=== PATIENT | female | born 1940 | race Caucasian/White ===

== ENCOUNTER 2017-05-05 11:50 | Inpatient (IN) | payer MEDICARE, OTHER, SELFPAY ==
[2017-05-05] VITALS (17 sets, daily range): BP systolic 98–146; BP diastolic 49–63; PULSE 59–104; RESP 14–18; TEMP 36.3–37.1; O2SAT 92–99; BMI 23.0
--- NOTE | 2017-05-05 | COL_PTH ---
PATIENT: WALLACE COWAN LOC: MS3 U#:[id number] AGE/SX: 76/F ROOM: MS308 RE05/05/[address]: Dr. Anshul Liang MD : 1940 BED: 1 DIS: 05/09/2017 SPEC #: [id number] RECD: 05/05/17 15:17 STATUS: SERGIO VY #: [id number] LINCOLN: 05/05/17 00:[address]: Anshul Liang DEPT: SURGICAL PATHOLOGY RECD BY: Bethany Copeland ENTERED: 05/06/17 07:46 SP TYPE: COLON OTHR DR: Dr. Elvia Escalante MD Tissues: Colon, NOS Procedures: Surgery Specimen Level HEADER OPERATION: Right hemicolectomy PRE-OP DIAGNOSIS: Cancer in cecum TISSUE SUBMITTED: Right colon MICROSCOPIC DIAGNOSIS Right colon, segmental colectomy: Invasive adenocarcinoma. See cancer check list below. AM:harriet 1/25/18 COMMENT COLON CANCER SUMMARY: Specimen ? right colon Procedure ? right hemicolectomy Tumor site - cecum Tumor size ? 6 x 5.5 x 1 cm Macroscopic tumor perforation ? not present Histologic type - adenocarcinoma Histologic grade ? low grade (moderately differentiated) Microscopic tumor extension ? tumor invades the subserosal adipose tissue. Margins: Proximal margin ? uninvolved by invasive carcinoma. Distal margin - uninvolved by invasive carcinoma. Circumferential margin - uninvolved by invasive carcinoma. Treatment effect - unknown Lymph-Vascular invasion ? not identified Perineural invasion - not identified Tumor deposits - not identified Lymph nodes: Number of lymph nodes examined - 27 Number of lymph nodes involved by carcinoma - 0 Distant metastasis - unknown Ancillary studies: See microsatellite instability study by IHC ([id number]) for complete details. Negative (no loss of mismatch protein; no microsatellite instability detected). Immunohistochemistry Studies for Mismatch Repair Proteins: MLH1 ? present. No loss MSH2 ? present. No loss MSH6 - present. No loss PMS2 - present. No loss Mutational Analysis: BRAF ? not performed KRAS - not performed PATHOLOGIC STAGE: pT3 N0 Mx The above summary is in compliance with [employer] [place] [employer] (CAP) Cancer Protocols Checklist and [place] Joint Committee on Cancer (AJCC), Staging Manual, 8th Ed. MICROSCOPIC DESCRIPTION Slides are reviewed. GROSS DESCRIPTION Received fresh for OR consultation labeled with the patient's name is a specimen designated right colon. The specimen consists of a 10 cm segment of large bowel and attached 19 cm segment of small bowel. An appendix is not present. Located within the cecum at a distance of 6.5 cm from the closest (distal) margin of resection is a fungating cote ulcerated mass measuring 6 x 5.5 x 1 cm. The size and proximity of the lesion to the closest margin is conveyed to the surgeon intraoperatively. The serosa in the area of the mass is inked in black ink. Also present in the specimen container are two irregular fragments of bowel. One fragment measures 4 x 2 x 1.7 cm. The other fragment measures 5 x 2 x 1.5 cm. Serial sections through the mass reveal no extension of tumor to inked serosal surface. The ileocecal valve is grossly unremarkable. The attached fibrofatty tissue contains a number of grossly unremarkable lymph nodes. No other mucosal mass lesions are identified. Gas Stove Servicer Helper sections are submitted as follows: 1 ? proximal and distal mucosal margins, 2 ? ileocecal valve, 3 - sales representative printing sections of bowel fragments free in container (one inked in black), 4-7 ? tumor with serosal surface inked, 812 ? multiple lymph nodes in each cassette. / AM:harriet 05/06/17 TC:0 CPT: 01400
--- NOTE | 2017-05-05 | IMM_PTH ---
PATIENT: WALLACE COWAN LOC: MS3 U#:[id number] AGE/SX: 76/F ROOM: MS308 RE05/05/[address]: Dr. Anshul Liang MD : 1940 BED: 1 DIS: 05/09/2017 SPEC #: [id number] RECD: 05/07/17 13:51 STATUS: SERGIO REQ #: [id number] LINCOLN: 05/05/17 00:[address]: Anshul Liang DEPT: IMMUNOHISTOCHEMISTRY RECD BY: Bethany Copeland ENTERED: 05/07/17 13:54 SP TYPE: IMMUNO OTHR DR: MD Dr. Timmy Katz DO Tissues: Right colon Procedures: MLH-1 (add) MSH6 (add) Anti-PMS2 (add) WARD-2 (add) HER2 TERRI (add) KI-67 (add) P53 (add) MSH2 (initial) CDX2 (add) PHYSICIAN & [address] [address] SPECIMEN INFORMATION: Tissue Source: Right colon Clinical Info: Cecum cancer Specimen Number: [id number] #6 CPT code: 88412, 21379 x8 METHODOLOGY: Deparaffinized sections of prefer/formalin-fixed tissue or PAP/DQ stained slides are incubated with monoclonal/polyclonal antibodies/oligonucleotide probes. Localization is made via biotin free immunoperoxidase method. Appropriate controls are performed and reacted as expected. Results on target cell population are indicated in the following table: RESULTS: ANTIBODY / CLONE RESULT Block 6 COLON CANCER PROFILE (Prognostic Markers) Ki-67 (30-9) positive P53 (DO-7) positive MSH2 (25D12) positive MSH6 (44) positive MLH-1 (M1) positive PMS2 ([id number]) positive WARD-2 (SP21) positive Her-2neu (CB11) positive CDX2 ([id number]) positive These tests were developed and their performance characteristics determined by [facility]. They may not have been cleared or approved by the U.S. Food and Drug Administration. The FDA has determined that such clearance or approval is not necessary. INTERPRETATION: Right colon, hemicolectomy: Invasive adenocarcinoma. Result of Microsatellite Instability Study: Negative (no loss of mismatch protein; no microsatellite instability detected). AM:harriet 05/08/17
--- NOTE | 2017-05-05 12:01 | EKG12_ITS ---
Test Reason : PRE OP Blood Pressure : / mmHG Vent. Rate : 053 BPM Atrial Rate : 053 BPM P-R Int : 124 ms QRS Dur : 066 ms QT Int : 430 ms P-R-T Axes : 044 -17 025 degrees QTc Int : 403 ms Sinus bradycardia Otherwise normal ECG When compared with ECG of 20-JUN-2008 07:54, MANUAL COMPARISON REQUIRED, DATA IS UNCONFIRMED Confirmed by SARIKA LAMAR ([id number]), assistant film editor AUBREY ZAMBRANO ([id number]) on 05/07/2017 1:33:33 PM Referred By: Sarika Liang Confirmed By:SARIKA LAMAR
[2017-05-05 12:56] LABS: AST(SGOT) 18 U/L (15-37); Alanine Aminotransfer ALT/SGPT 23 U/L (12-78); Albumin, Serum 3.3 g/dL (3.4-5.0); Alkaline Phosphatase 125 U/L (45-117); Bilirubin, Direct 0.11 mg/dL (0.00-0.30); Globulin 3.3 g/dL (2.2-4.2); Protein, Total 6.6 g/dL (6.4-8.2); Thyroid Stim Hormone (TSH) 0.73 uIU/mL (0.358-3.74)
[2017-05-05] MEDS: Bupivacaine Mpf 0.5% 30 ML VIAL (13:00)
--- NOTE | 2017-05-05 13:47 | OP.PCM_ITS ---
Problem List (1) Malignant neoplasm of ascending colon Status: Acute Report of Operation Date of Procedure: 05/05/17 Pre-Operative Diagnosis: c18.2 cancer of the ascending colon Post-Operative Diagnosis: same Surgery/Procedure Performed:: 07273 colectomy with ileocolostomy Type of Anesthesia:: General Anesthesiologist: Blanco Lopez Specimen's removed: right colon Estimated Blood Loss (mL): < 150 cc Fluids Replaced: 2 L Description of Procedure: Patient was brought in the operating room placed in the supine position. Under excellent general endotracheal intubation a Hemphill catheter was placed the abdomen was sterilely prepped and draped in usual fashion. Local was injected above the umbilicus a small incision was made varies needle was placed inside the abdomen and the abdomen was insufflated 15 torr. Visiport was used to gain access to the intra-abdominal cavity without injury to underlying structures. Superior to this I placed another #5 trocar. The right colon at the proximal ascending area was adherent to the anterior abdominal wall. I took this down with the Enseal to ensure that I took part of the anterior abdominal wall. I did get into the musculature here. Once I had this freed I started to dissect the small intestine. I took down some adhesions from the anterior abdominal wall from the omentum. I started to dissect sharply into the pelvis laparoscopically it was very apparent to me that this was not going to be done laparoscopically. I proceeded then to make a midline incision in the lower abdomen around the umbilicus to the right side placed a wound protector into the wound and then proceeded to dissect the small intestine out of the pelvis. This was done with sharp dissection with Metzenbaum scissors. It took quite a bit of time to get all the small intestine out of the pelvis. But I was able to do this without any serosal injuries or enterotomies. I proceeded to take the rest of the omentum off of the pelvis as well I inspected making sure that I did not injure the sigmoid colon from where this omentum had been densely adherent. Once I had all the small intestines up out of the pelvis I then proceeded to take all the adhesions from the small intestines down with Metzenbaum dissection. Once again no serosal injuries or enterotomies were performed. Once I had delineated this I proceeded to mobilize the rest of the descending colon and hepatic flexure with the Enseal. I transected the colon at the proximal transverse colon with a 75 linear cutter. Making sure that I stated to the right side of the middle colic artery. I then went to the terminal ileum and transected this with another 75 linear cutter. I came down on the right colic artery and ligated this in between Katy clamps. I then sent the specimen to pathology for gross dissection. I had good proximal and distal margins with positive serosal involvement. I inspected the liver I could palpate no abnormalities within the liver and when I had the scope and I did not see any abnormalities in the liver. I was able to get my hand back posteriorly where I was unable to see this with the scope. I placed 2 bowel clamps on the colon and the small intestine enterotomies were performed a side- to-side functional and end-to-end anastomosis was performed with a 75 linear cutter. I placed a 60 stapler across the enterotomy. I had a misfire of my stapler here and had to reapply the stapler. Once I had it fired appropriately I placed a 3-0 GI silk in the crotch stitch in Place Betadine at the end anastomosis. I had good hemostasis. The mesenteric rent was closed with a 2-0 Vicryl. Both my small intestine and colon had good blood supply to it the connection was large enough to get my thumb through it easily I placed the right colon in the right upper quadrant. I ran the small bowel and inspected it once again no injuries were identified. I irrigated out the pelvis with a liter of warm irrigation I got an accurate needle and sponge count I placed the omentum back in the pelvis the fascia was then closed with #1 PDS. Local was injected into the intramuscular area. Subcu was brought together with a 2-0 Vicryl. Deep dermals of 3-0 Vicryl then a running 4-0 Monocryl on the skin Steri-Strips are applied sterile dressings were applied and the patient had tolerated the procedure well. - Admit VTE Documentation VTE Present on Admission: No VTE Mechan Device Prophylaxis: SCD's VTE Pharm Prophylaxis ordered?: No Reason prophylaxis not ordered:: Treatment Not Indicated
[2017-05-05] MEDS: HYDROmorphone PCA 0.2 MG/ML 100 ML BAG 20 MG IV (17:09)
[2017-05-05] MEDS: Senna/Docusate Sodium 1 Tablet 2 TABLET PO (20:38)
[2017-05-05] MEDS: Lactated Ringers 1,000 ML 75 ML IV (20:38)
[2017-05-05] MEDS: Metoprolol Tartrate 25 MG Tablet PO (20:38)
[2017-05-06] VITALS (17 sets, daily range): BP systolic 110–136; BP diastolic 53–69; PULSE 74–93; RESP 16–18; TEMP 36.3–37.2; O2SAT 93–97
[2017-05-06] MEDS: 0.9% Normal Saline 1,000 ML 999 ML IV (00:10)
--- NOTE | 2017-05-06 00:37 | NURSING ---
Wasted 10ml of dilaudid from PUBLISHING SPECIALIST pump d/t air in the line. Verified by Fatemeh Johnson, charge nurse. The dilaudid was drained into a cup and disposed into the sink.
[2017-05-06] MEDS: LORazepam 1 MG Tablet PO ×4 (02:20→21:27)
[2017-05-06] MEDS: Levothyroxine 50 MCG Tablet PO (06:10)
--- NOTE | 2017-05-06 07:15 | PCM.PN.SRG ---
Patient Problems: Active and Suspected Problems (Last Reviewed 04/30/17 @ 10:59 by Reyna Larios) Malignant neoplasm of ascending colon (Acute) Subjective: Patient evaluated resting in bed. She is tearful this morning. She notes forgetting to push the pain pump medication to assist with pain. Patient notes abdominal pain with movement and back pain with laying in bed. She denies nausea, vomiting. Urine output is decreased. 1 liter of normal saline was given over night. She is tolerating sips and chips. Negative flatus, BM. Negative fever. - Physical Exam General: Alert, Oriented x3, Cooperative Lungs: Clear to auscultation, Normal air movement Cardiovascular: Regular rate, No murmurs Abdomen: Hypoactive Bowel Sounds, Distended, Tender - generalized, - - Incision- c/d/i. No erythema or infection noted Vital Signs Temp Pulse Resp BP Pulse Ox 97.4 F L 81 18 110/57 L 97 05/06/17 05:15 05/06/17 05:15 05/06/17 05:15 05/06/17 05:15 05/06/17 05:15 Oxygen Flow Rate 4 Oxygen Delivery Method Nasal Cannula Weight: 125 lb 14.143 oz Body Mass Index (BMI) 23.0 Intake and Output for Last 24 Hours 05/04/17 05/05/17 05/06/17 23:59 23:59 23:59 Intake Total 3124 / 3124 1794 / 1794 Output Total 350 / 350 200 / 200 Balance 2774 / 2774 1594 / 1594 Laboratory Tests Past 24 Hrs 05/05/17 05/06/17 05/06/17 12:20 06:48 06:48 WBC Pending RBC Pending Hgb Pending Hct Pending MCV Pending MCH Pending MCHC Pending RDW Pending RDW Differential Pending Plt Count Pending Sodium Pending Potassium Pending Chloride Pending Carbon Dioxide Pending Anion Gap Pending BUN Pending Creatinine Pending Est GFR (MDRD) Af Amer Pending Est GFR (MDRD) Non-Af Pending BUN/Creatinine Ratio Pending Glucose Pending Calcium Pending Total Bilirubin 0.30 Direct Bilirubin 0.11 AST 18 ALT 23 Alkaline Phosphatase 125 H Total Protein 6.6 Albumin 3.3 L Globulin 3.3 TSH 0.73 Assessment/Plan Active and Suspected Problems (Last Reviewed 04/30/17 @ 10:59 by Reyna Larios) Malignant neoplasm of ascending colon (Acute) I am following this patient in conjunction with Dr. Liang S/p right hemicolectomy - Possible d/c maribel later today - K-pad - encourage ambulation and I.S. - Pain control. Switch MINISTER ASSISTANT pump for scheduled PRN pain medication IV - Continue sips and chips - Additional 1 liter bolus of Normal saline given this morning - We will continue to monitor this patient - Labs pending
--- NOTE | 2017-05-06 07:22 | PN.SURG_ITS ---
Patient Problems: Active and Suspected Problems (Last Reviewed 04/30/17 @ 10:59 by Reyna Larios) Malignant neoplasm of ascending colon (Acute) Subjective: Patient evaluated resting in bed. She is tearful this morning. She notes forgetting to push the pain pump medication to assist with pain. Patient notes abdominal pain with movement and back pain with laying in bed. She denies nausea , vomiting. Urine output is decreased. 1 liter of normal saline was given over night. She is tolerating sips and chips. Negative flatus, BM. Negative fever. - Physical Exam General: Alert, Oriented x3, Cooperative Lungs: Clear to auscultation, Normal air movement Cardiovascular: Regular rate, No murmurs Abdomen: Hypoactive Bowel Sounds, Distended, Tender - generalized, - - Incision - c/d/i. No erythema or infection noted Vital Signs Temp Pulse Resp BP Pulse Ox 97.4 F L 81 18 110/57 L 97 05/06/17 05:15 05/06/17 05:15 05/06/17 05:15 05/06/17 05:15 05/06/17 05:15 Oxygen Flow Rate 4 Oxygen Delivery Method Nasal Cannula Weight: 125 lb 14.143 oz Body Mass Index (BMI) 23.0 Intake and Output for Last 24 Hours 05/04/17 05/05/17 05/06/17 23:59 23:59 23:59 Intake Total 3124 / 3124 1794 / 1794 Output Total 350 / 350 200 / 200 Balance 2774 / 2774 1594 / 1594 Laboratory Tests Past 24 Hrs 05/05/17 05/06/17 05/06/17 12:20 06:48 06:48 WBC Pending RBC Pending Hgb Pending Hct Pending MCV Pending MCH Pending MCHC Pending RDW Pending RDW Differential Pending Plt Count Pending Sodium Pending Potassium Pending Chloride Pending Carbon Dioxide Pending Anion Gap Pending BUN Pending Creatinine Pending Est GFR (MDRD) Af Amer Pending Est GFR (MDRD) Non-Af Pending BUN/Creatinine Ratio Pending Glucose Pending Calcium Pending Total Bilirubin 0.30 Direct Bilirubin 0.11 AST 18 ALT 23 Alkaline Phosphatase 125 H Total Protein 6.6 Albumin 3.3 L Globulin 3.3 TSH 0.73 Assessment/Plan Active and Suspected Problems (Last Reviewed 04/30/17 @ 10:59 by Reyna Larios) Malignant neoplasm of ascending colon (Acute) I am following this patient in conjunction with Dr. Liang S/p right hemicolectomy - Possible d/c maribel later today - K-pad - encourage ambulation and I.S. - Pain control. Switch EPIC DIRECTOR pump for scheduled PRN pain medication IV - Continue sips and chips - Additional 1 liter bolus of Normal saline given this morning - We will continue to monitor this patient - Labs pending
[2017-05-06 07:37] LABS: Anion Gap 7 (5-15); BUN 7 mg/dL (7-18); BUN/Creat Ratio 7.2 RATIO (10-20); Calcium,Total 7.4 mg/dL (8.5-10.1); Chloride 106 mmol/L (98-107); Creatinine, Serum 0.98 mg/dL (0.55-1.02); EST Glomerular Filtration Rate 59 mL/min (>60); Est Glom Filt Rate - Afr Amer 71 mL/min (>60); Estimated Creatinine Clearance 38.02 ml/min; Glucose 120 mg/dL (70-110); Potassium 4.2 mmol/L (3.5-5.1); Sodium Level 139 mmol/L (136-145)
[2017-05-06] MEDS: 0.9% Normal Saline 1,000 ML 500 ML IV (07:39)
[2017-05-06] MEDS: HYDROmorphone 1 MG/ML Syringe IV ×4 (07:54→20:35)
[2017-05-06] MEDS: 0.9% NaCl Peripheral Flush Adult/Peds IV ×3 (08:03→15:36)
[2017-05-06 08:10] LABS: Hematocrit 30.8 % (37-47); Hemoglobin 9.4 g/dl (12.0-15.0); Mean Corp Hgb Conc 30.5 g/gl (32-36); Mean Corpuscular Hgb 28.1 pg (27.0-32.0); Mean Corpuscular Volume 91.9 fL (81-99); Mean Platelet Vol. 10.6 fl (6.2-12.0); Platelet Count 487 K/mm3 (150-450); RBC Distribution Width CV 16.3 % (11.6-14.6); RBC Distribution Width SD 50.1 fl (35.1-43.9); Red Blood Count 3.35 M/mm3 (4.2-5.4); White Blood Count 12.6 K/mm3 (4.4-11.0)
[2017-05-06 08:19] LABS: Scan Indicated on CBC? Y/N NO
--- NOTE | 2017-05-06 10:29 | CASEMGMT ---
PRETTY COOPER Face to Face with patient for initial transition planning/care coordination assessment. RN CM introduced self and role at [facility]. Patient lying in bed, alert and oriented. Patient willing to participate in assessment and is able to answer all questions appropriately. Care providers, pharmacy, and demographics verified. See link attached. Patient wishes to discharge home, denies need for home health at this time. Patient states she has no further needs or concerns at this time. CM to follow for discharge planning needs that may arise. Dispostion Plan: Patient to discharge home with family support and follow-up plans. RN CM to follow up with family regarding discharge needs.
[2017-05-06] MEDS: Lactated Ringers 1,000 ML 75 ML IV ×2 (10:50→23:36)
[2017-05-06] MEDS: Metoprolol Tartrate 25 MG Tablet PO ×2 (10:51→21:26)
[2017-05-06] MEDS: Zolpidem Tartrate 5 MG Tablet PO (21:26)
[2017-05-07] VITALS (12 sets, daily range): BP systolic 100–134; BP diastolic 47–57; PULSE 61–92; RESP 16–20; TEMP 36.5–37.1; O2SAT 92–100
[2017-05-07] MEDS: HYDROmorphone 1 MG/ML Syringe IV ×2 (01:22→05:48)
[2017-05-07] MEDS: LORazepam 1 MG Tablet PO ×3 (05:42→21:36)
[2017-05-07] MEDS: Levothyroxine 50 MCG Tablet PO (05:42)
--- NOTE | 2017-05-07 06:40 | PCM.PN.SRG ---
Patient Problems: Active and Suspected Problems (Last Reviewed 04/30/17 @ 10:59 by Reyna Larios) Malignant neoplasm of ascending colon (Acute) Subjective: Patient was evaluated resting comfortably in bed. Patient seems much more comfortable with pain. She denies nausea, vomiting, fever. Patient seems to be urinating well. Positive flatus. Negative BM. Patient notes feeling more congested this morning. She was not able to ambulate much due to multiple visitors yesterday. - Physical Exam General: Alert, Oriented x3, Cooperative HEENT: - - Left eye watery and slightly red Lungs: Wheezes - bilaterally Cardiovascular: Regular rate, No murmurs Abdomen: Hypoactive Bowel Sounds - slightly more than yesterday, Distended - slightly, Tender - minimal, - - Incision c/d/i. Small amount of ecchymosis noted. No erythema or infection noted Vital Signs Temp Pulse Resp BP Pulse Ox 98.8 F 90 18 134/47 H 93 05/07/17 02:00 05/07/17 02:00 05/07/17 02:00 05/07/17 02:00 05/07/17 02:00 Oxygen Flow Rate 2 Oxygen Delivery Method Nasal Cannula Weight: 125 lb 14.143 oz Body Mass Index (BMI) 23.0 Intake and Output for Last 24 Hours 05/05/17 05/06/17 05/07/17 23:59 23:59 23:59 Intake Total 3124 / 3124 3744 / 3744 1664 / 1664 Output Total 350 / 350 750 / 750 3600 / 3600 Balance 2774 / 2774 2994 / 2994 -1936 / -1936 Laboratory Tests Past 24 Hrs 05/06/17 05/06/17 06:48 06:48 WBC 12.6 H RBC 3.35 L Hgb 9.4 L Hct 30.8 L MCV 91.9 MCH 28.1 MCHC 30.5 L RDW 16.3 H RDW Differential 50.1 H Plt Count 487 H MPV 10.6 Sodium 139 Potassium 4.2 Chloride 106 Carbon Dioxide 26.0 Anion Gap 7 BUN 7 Creatinine 0.98 Estim Creat Clear Calc 38.02 Est GFR (MDRD) Af Amer 71 Est GFR (MDRD) Non-Af 59 L BUN/Creatinine Ratio 7.2 L Glucose 120 H Calcium 7.4 L Assessment/Plan Active and Suspected Problems (Last Reviewed 04/30/17 @ 10:59 by Reyna Larios) Malignant neoplasm of ascending colon (Acute) I am following this patient in conjunction with Dr. Liang S/p right hemicolectomy - Ambulate in the hallway today x 3 - Consult medicine per Dr. Liang - Order Duoneb treatments - PEP therapy - Avoid Dilaudid and switch to oral pain medications - Patient up in chair x 2 - We will continue to monitor this patient - Labs pending
--- NOTE | 2017-05-07 07:16 | RAD_ITS ---
STUDY: X-RAY CHEST REASON FOR EXAM: Female, 76 years old. Shortness of breath. Confusion. TECHNIQUE: Single AP portable view of the chest. COMPARISON: Comparison is made with prior study dated August 28, 2015. FINDINGS: Elevation of the right hemidiaphragm. There is evidence of vascular congestion and mild CHF. Bibasilar patchy infiltrates and/or atelectasis worse on the right side. Blunting of both costophrenic angles. Normal size heart. Normal mediastinum and sherice. Normal visualized pulmonary arteries. There is atherosclerotic tortuosity of the aortic arch and descending thoracic aorta. Normal visualized thoracic spine. Normal visualized ribs, clavicles, and shoulders. There is no demonstrated abnormality of the visualized soft tissue structures of the upper abdomen. RAD/Chest 1 View (Portable) IMPRESSION: CHF. Superimposed bibasilar atelectasis and/or infiltrates worse on the right side with blunting of both costophrenic angles. Electronically Signed: Juan Carlos Crump MD at 8:13 EST Tel [phone], Service support ,
[2017-05-07 07:27] LABS: Absolute Lymphocyte Count 0.92 X10^3/ul (0.83-4.51); Absolute Neutrophil Count 11.7 X10^3/uL (2.0-7.7); Basophil# 0.05 X10^3/uL; Basophil% 0.4 % (0-1); Eosinophil# 0.13 X10^3/uL; Eosinophils% 0.9 % (0-5); Hematocrit 28.4 % (37-47); Hemoglobin 8.7 g/dl (12.0-15.0); Lymphocyte # 0.92 X10^3/ul (4.0); Lymphocyte % 6.5 % (19-41); Mean Corp Hgb Conc 30.6 g/gl (32-36); Mean Corpuscular Hgb 28.1 pg (27.0-32.0); Mean Corpuscular Volume 91.6 fL (81-99); Mean Platelet Vol. 9.9 fl (6.2-12.0); Monocyte# 1.28 X10^3/uL; Monocyte% 9.1 % (0-10); Neutrophil # 11.68 X10^3/uL (2.7-7.7); Platelet Count 398 K/mm3 (150-450); RBC Distribution Width CV 16.2 % (11.6-14.6); RBC Distribution Width SD 50.7 fl (35.1-43.9); White Blood Count 14.1 K/mm3 (4.4-11.0)
[2017-05-07 07:52] LABS: Anion Gap 8 (5-15); BUN 5 mg/dL (7-18); BUN/Creat Ratio 8.2 RATIO (10-20); Calcium,Total 7.6 mg/dL (8.5-10.1); Chloride 103 mmol/L (98-107); Creatinine, Serum 0.61 mg/dL (0.55-1.02); EST Glomerular Filtration Rate 101 mL/min (>60); Est Glom Filt Rate - Afr Amer 122 mL/min (>60); Estimated Creatinine Clearance 37.26 ml/min; Glucose 106 mg/dL (70-110); Sodium Level 137 mmol/L (136-145)
[2017-05-07 07:54] LABS: POSITIVE COUNT NO; POSITIVE DIFFERENTIAL NO; POSITIVE MORPHOLOGY NO
[2017-05-07] MEDS: Ipratropium/Albuterol Sulfate 3 ML AMPUL.NEB INHALATION ×4 (08:26→19:31)
[2017-05-07] MEDS: oxyCODONE 5 MG Tablet PO ×2 (09:04→19:46)
[2017-05-07] MEDS: Metoprolol Tartrate 25 MG Tablet PO ×2 (09:05→21:36)
[2017-05-07] MEDS: Lactated Ringers 1,000 ML 50 ML IV (10:00)
[2017-05-07 10:28] LABS: BNP,B-Type NATRIURETIC PEPTIDE 418.2 pg/mL (0-100)
[2017-05-07] MEDS: 0.9% NaCl Peripheral Flush Adult/Peds IV (13:15)
[2017-05-07] MEDS: Furosemide 40 MG/4 ML Vial IV (13:15)
[2017-05-07] MEDS: Acetaminophen 325 MG Tablet 650 MG PO (13:23)
--- NOTE | 2017-05-07 13:25 | ECHOD_ITS ---
Reason For Study: CHF Procedure This was a 2D Doppler, Color Flow transthoracic echocardiogram. The study was technically difficult. PT was scanned in the supine position. Exam performed portable in patient room. Left Ventricle Normal LV size. Left ventricular systolic function is normal. The estimated ejection fraction is 60 %. No regional wall motion abnormalities noted. Right Ventricle Normal RV size. Normal systolic function. Atria Normal left atrium. Normal right atrium. Mitral Valve Normal mitral valve. Tricuspid Valve Normal tricuspid valve. Mild (1+) tricuspid valve insufficiency. Pulmonary artery systolic pressure is 26 mmHg. Aortic Valve Trisinus/trileaflet aortic valve. Pulmonic Valve Normal pulmonic valve. Great Vessels Normal aortic root. The pulmonary artery is normal size. Normal inferior vena cava. Pericardium/Pleural No pericardial effusion. MMode/2D Measurements & Calculations LVIDd: 4.2 cm IVSd: 1.1 cm Ao root diam: 3.0 cm LVIDs: 2.7 cm LVPWd: 1.1 cm LA dimension: 3.6 cm FS: 34.5 % LAV(MOD-bp): 44.0 ml LA A4 area: 17.0 cm2 RA A4 area: 11.7 cm2 LAV(MOD-bp) Indexed: 28.1 ml/m2 LAV(MOD-sp2): 41.7 ml LAV(MOD-sp4): 45.8 ml Doppler Measurements & Calculations MV E max rene: 92.4 cm/sec Lat Peak E' Rene: 10.6 cm/sec Med Peak E' Rene: 8.3 cm/sec MV A max rene: 107.2 cm/sec E/E' lat: 8.7 E/E' med: 11.1 MV E/A: 0.86 Ao V2 max: 155.7 cm/sec LV V1 max: 142.1 cm/sec PA V2 max: 80.8 cm/sec Ao max P.4 mmHg LV V1 max P.9 mmHg TR max rene: 229.9 cm/sec TR max P.1 mmHg Interpretation Summary Normal LV size. Left ventricular systolic function is normal. The estimated ejection fraction is 60 %. Mild (1+) tricuspid valve insufficiency. Ordering Physician: Timmy Marc Referring Physician: Anshul Liang Performed By: Coral Joseph, CHINMAY, RVT
--- NOTE | 2017-05-07 16:16 | CHAPLAIN ---
Type of Pastoral Visit _x__ Initial Visit ___ Follow-up Visit ___ On-call Visit ___ General Patient Visit ___ Spiritual Assessment ___ Family Conference ___ Bereavement ___ Rapid Response ___ Code Blue ___ Other (describe below) Pastoral Care Referral From _x__ Patient ___ Family ___ Nurse ___ Physician ___ Cupola Melter ___ Solderer Electronic ___ Other (describe below) Sacrament/Intervention ___ Active listening ___ Anointing ___ Gnosticism ___ Bereavement ___ Communion ___ Kiana exploration ___ ___ Life review ___ Prayer ___ Reconciliation ___ Sacrament of Sick ___ Supportive presence ___ Wedding _x__ Other (describe below) Pastoral Comments patient and spouse requested a phone call be made to their taoist to notify internal communications intern of her admission; this was handled by this end polisher
--- NOTE | 2017-05-07 19:53 | PCM.PROGNOTE ---
Subjective: Patient seen and examined today at the request of general surgery, she had undergone a hemicolectomy but was unable to be weaned from oxygen following the procedure. Patient has no history of any lung disease, I obtained a chest x-ray which showed evidence of CHF and bilateral infiltrates which I feel are probably atelectatic areas. Patient's beta natruretic peptide was minimally elevated, I ordered an echocardiogram which did not show any impaired EF. Patient was given IV Lasix this morning which seemed to improve her breathing. I will repeat the patient's chest x-ray in the morning, at the time of my repeat examination this afternoon patient appeared comfortable and was on 2 L of oxygen. - Physical Exam General: Alert, Oriented x3, Cooperative HEENT: Atraumatic, PERRLA, EOMI, Normocephalic Oral: Moist Mucosa Neck: Supple, No JVD, Negative Carotid Bruits, Trachea Midline, Thyroid Normal Size and Texture Lungs: No rhonchi, No wheeze, No rales, Diminished - Over right lower lung Cardiovascular: Regular rate, Regular Rhythm, Normal S1, Normal S2, No murmurs, No Ectopic Activity, PMI Normal, No rub noted, No Gallop Abdomen: Bowel Sounds Present, Soft, Non Tender, No hernias noted Extremities: No clubbing, No cyanosis, No edema, Capillary Refill Less than 3 Seconds Skin: No rashes, No breakdown Musculoskeletal: No Tenderness to Palpation of Joints or Extremities Neurological: Cranial nerves II-XII grossly intact, Neuro grossly intact, Sensory exam intact to light touch and pain, Coordination normal Psych/Mental Status: Normal Affect, Appropriate, Alert and oriented to time, place, person, mood and affect Vital Signs Temp Pulse Resp BP Pulse Ox 98.1 F 84 18 131/51 H 100 05/07/17 14:32 05/07/17 15:17 05/07/17 15:17 05/07/17 14:32 05/07/17 14:32 Oxygen Flow Rate 2 Oxygen Delivery Method Nasal Cannula Weight: 57.1 kg Body Mass Index (BMI) 23.0 Intake and Output for Last 24 Hours 05/05/17 05/06/17 05/07/17 23:59 23:59 23:59 Intake Total 3124 / 3124 3744 / 3744 1963 / 1963 Output Total 350 / 350 750 / 750 4000 / 4000 Balance 2774 / 2774 2994 / 2994 -2035 / -2035 Laboratory Tests Past 24 Hrs 05/07/17 05/07/17 05/07/17 07:14 07:14 07:14 WBC 14.1 H RBC 3.10 L Hgb 8.7 L Hct 28.4 L MCV 91.6 MCH 28.1 MCHC 30.6 L RDW 16.2 H RDW Differential 50.7 H Plt Count 398 MPV 9.9 Immature Gran % (Auto) 0.100 Neut % (Auto) 83.0 H Lymph % (Auto) 6.5 L [place] % (Auto) 9.1 Eos % (Auto) 0.9 Baso % (Auto) 0.4 Absolute Neuts (auto) 11.7 H Absolute Lymphs (auto) 0.92 Total Counted Not Reportable Sodium 137 Potassium 4.0 Chloride 103 Carbon Dioxide 26.0 Anion Gap 8 BUN 5 L Creatinine 0.61 Estim Creat Clear Calc 37.26 Est GFR (MDRD) Af Amer 122 Est GFR (MDRD) Non-Af 101 BUN/Creatinine Ratio 8.2 L Glucose 106 Calcium 7.6 L B-Natriuretic Peptide 418.2 H Assessment/Plan #1 hypoxia secondary to diastolic CHF and atelectasis-chest x-ray will be repeated tomorrow, I do not think the patient needs to be on programmed Lasix, we will continue aerosol treatments #2 atelectasis-patient will continue aerosol treatments, chest x-ray will be repeated #3 hypertension #4 osteoarthritis #5 legal blindness #6 hypothyroidism #7 Invasive adenocarcinoma of the colon -postop day #2 right hemicolectomy Code Visit Inpatient E&M: 56287 Subs Hosp L2
[2017-05-07] MEDS: Zolpidem Tartrate 5 MG Tablet PO (21:36)
[2017-05-08] VITALS (12 sets, daily range): BP systolic 126–140; BP diastolic 47–64; PULSE 66–89; RESP 12–18; TEMP 36.6–36.7; O2SAT 86–96
[2017-05-08] MEDS: Ipratropium/Albuterol Sulfate 3 ML AMPUL.NEB INHALATION ×2 (00:41→19:00)
[2017-05-08] MEDS: oxyCODONE 5 MG Tablet PO ×2 (01:47→14:20)
--- NOTE | 2017-05-08 05:55 | RAD_ITS ---
STUDY: X-RAY CHEST REASON FOR EXAM: Female, 76 years old. Shortness of breath. TECHNIQUE: Single AP portable view of the chest. COMPARISON: Comparison is made with prior study dated May 07, 2017. FINDINGS: Since prior study, there has been progressive pleural parenchymal changes at the right lung base. Persistent atelectasis and/or infiltrate in the left lower lobe. Normal size heart. Normal mediastinum and sherice. Normal visualized pulmonary arteries. Normal visualized aortic arch and descending thoracic aorta. Normal visualized thoracic spine. Normal visualized ribs, clavicles, and shoulders. There is no demonstrated abnormality of the visualized soft tissue structures of the upper abdomen. RAD/Chest 1 View (Portable) IMPRESSION: Progressive pleural parenchymal changes at the right lung base. Stable infiltration and/or atelectasis in the left lower lobe. Electronically Signed: Juan Carlos Crump MD at 8:27 EST Tel [phone], Service support ,
[2017-05-08] MEDS: Acetaminophen 325 MG Tablet 650 MG PO ×2 (05:57→11:18)
[2017-05-08] MEDS: Levothyroxine 50 MCG Tablet PO (05:58)
[2017-05-08] MEDS: Lactated Ringers 1,000 ML 50 ML IV (05:58)
[2017-05-08] MEDS: LORazepam 1 MG Tablet PO ×3 (05:58→22:40)
--- NOTE | 2017-05-08 07:28 | PCM.PN.SRG ---
Patient Problems: Active and Suspected Problems (Last Reviewed 04/30/17 @ 10:59 by Reyna Larios) Malignant neoplasm of ascending colon (Acute) Subjective: Patient reports that he is doing well this morning. She tolerated clear liquid diet yesterday with no nausea vomiting. She does not feel distended. She is passing flatus. Her pain is well-controlled with medication. - Physical Exam General: Alert, Cooperative Neck: No JVD Lungs: - - Patient is coughing Cardiovascular: Regular rate, Regular Rhythm Abdomen: Soft, Non Tender, Non-Distended, - - Incision is clean dry and intact Psych/Mental Status: Normal Affect Vital Signs Temp Pulse Resp BP Pulse Ox 97.8 F 89 18 140/57 H 94 05/08/17 02:04 05/08/17 02:13 05/08/17 02:13 05/08/17 02:04 05/08/17 02:13 Oxygen Flow Rate 2 Oxygen Delivery Method Nasal Cannula Weight: 125 lb 14.143 oz Body Mass Index (BMI) 23.0 Intake and Output for Last 24 Hours 05/06/17 05/07/17 05/08/17 23:59 23:59 23:59 Intake Total 3744 / 3744 1964 / 1963 968 / 968 Output Total 750 / 750 4000 / 4000 1850 / 1850 Balance 2994 / 2994 -2036 / -2036 -882 / -882 Laboratory Tests Past 24 Hrs 05/07/17 05/07/17 05/07/17 07:14 07:14 07:14 WBC 14.1 H RBC 3.10 L Hgb 8.7 L Hct 28.4 L MCV 91.6 MCH 28.1 MCHC 30.6 L RDW 16.2 H RDW Differential 50.7 H Plt Count 398 MPV 9.9 Immature Gran % (Auto) 0.100 Neut % (Auto) 83.0 H Lymph % (Auto) 6.5 L [place] % (Auto) 9.1 Eos % (Auto) 0.9 Baso % (Auto) 0.4 Absolute Neuts (auto) 11.7 H Absolute Lymphs (auto) 0.92 Total Counted Not Reportable Sodium 137 Potassium 4.0 Chloride 103 Carbon Dioxide 26.0 Anion Gap 8 BUN 5 L Creatinine 0.61 Estim Creat Clear Calc 37.26 Est GFR (MDRD) Af Amer 122 Est GFR (MDRD) Non-Af 101 BUN/Creatinine Ratio 8.2 L Glucose 106 Calcium 7.6 L B-Natriuretic Peptide 418.2 H Clinical Impression(s) from Imaging Studies Chest X-Ray 05/07/17 07:16 IMPRESSION: CHF. Superimposed bibasilar atelectasis and/or infiltrates worse on the right side with blunting of both costophrenic angles. Electronically Signed: Juan Carlos Crump MD at 8:13 EST Tel [phone], Service support , Assessment/Plan Active and Suspected Problems (Last Reviewed 04/30/17 @ 10:59 by Reyna Larios) Malignant neoplasm of ascending colon (Acute) 76-year-old female status post right hemicolectomy 1. The patient is tolerating liquid diet with no nausea vomiting and she is not distended and passing flatus. I will start her on a regular diet. I will also stop her IV fluids. 2. The patient was given IV Lasix yesterday for possible fluid overload. She diuresed 4 L and her oxygen requirements have improved. She is still having a cough and her chest x-ray today appears to have possible infiltrate on the right side but official read is pending. I am also checking a CBC and a BMP. If her white count continues to rise she may require antibiotics and a sputum culture. 3. Encouraged ambulation and up out of bed to chair as well as incentive spirometer use. Davie Isaacs MD Pager: [facility] [address], [address] [address] Office:
--- NOTE | 2017-05-08 07:31 | PN.SURG_ITS ---
Patient Problems: Active and Suspected Problems (Last Reviewed 04/30/17 @ 10:59 by Reyna Larios) Malignant neoplasm of ascending colon (Acute) Subjective: Patient reports that he is doing well this morning. She tolerated clear liquid diet yesterday with no nausea vomiting. She does not feel distended. She is passing flatus. Her pain is well-controlled with medication. - Physical Exam General: Alert, Cooperative Neck: No JVD Lungs: - - Patient is coughing Cardiovascular: Regular rate, Regular Rhythm Abdomen: Soft, Non Tender, Non-Distended, - - Incision is clean dry and intact Psych/Mental Status: Normal Affect Vital Signs Temp Pulse Resp BP Pulse Ox 97.8 F 89 18 140/57 H 94 05/08/17 02:04 05/08/17 02:13 05/08/17 02:13 05/08/17 02:04 05/08/17 02:13 Oxygen Flow Rate 2 Oxygen Delivery Method Nasal Cannula Weight: 125 lb 14.143 oz Body Mass Index (BMI) 23.0 Intake and Output for Last 24 Hours 05/06/17 05/07/17 05/08/17 23:59 23:59 23:59 Intake Total 3744 / 3744 1964 / 1963 968 / 968 Output Total 750 / 750 4000 / 4000 1850 / 1850 Balance 2994 / 2994 -2036 / -2036 -882 / -882 Laboratory Tests Past 24 Hrs 05/07/17 05/07/17 05/07/17 07:14 07:14 07:14 WBC 14.1 H RBC 3.10 L Hgb 8.7 L Hct 28.4 L MCV 91.6 MCH 28.1 MCHC 30.6 L RDW 16.2 H RDW Differential 50.7 H Plt Count 398 MPV 9.9 Immature Gran % (Auto) 0.100 Neut % (Auto) 83.0 H Lymph % (Auto) 6.5 L [place] % (Auto) 9.1 Eos % (Auto) 0.9 Baso % (Auto) 0.4 Absolute Neuts (auto) 11.7 H Absolute Lymphs (auto) 0.92 Total Counted Not Reportable Sodium 137 Potassium 4.0 Chloride 103 Carbon Dioxide 26.0 Anion Gap 8 BUN 5 L Creatinine 0.61 Estim Creat Clear Calc 37.26 Est GFR (MDRD) Af Amer 122 Est GFR (MDRD) Non-Af 101 BUN/Creatinine Ratio 8.2 L Glucose 106 Calcium 7.6 L B-Natriuretic Peptide 418.2 H Clinical Impression(s) from Imaging Studies Chest X-Ray 05/07/17 07:16 IMPRESSION: CHF. Superimposed bibasilar atelectasis and/or infiltrates worse on the right side with blunting of both costophrenic angles. Electronically Signed: Juan Carlos Crump MD at 8:13 EST Tel [phone], Service support , Assessment/Plan Active and Suspected Problems (Last Reviewed 04/30/17 @ 10:59 by Reyna Larios) Malignant neoplasm of ascending colon (Acute) 76-year-old female status post right hemicolectomy 1. The patient is tolerating liquid diet with no nausea vomiting and she is not distended and passing flatus. I will start her on a regular diet. I will also stop her IV fluids. 2. The patient was given IV Lasix yesterday for possible fluid overload. She diuresed 4 L and her oxygen requirements have improved. She is still having a cough and her chest x-ray today appears to have possible infiltrate on the right side but official read is pending. I am also checking a CBC and a BMP. If her white count continues to rise she may require antibiotics and a sputum culture. 3. Encouraged ambulation and up out of bed to chair as well as incentive spirometer use. Davie Isaacs MD Pager: [facility] [address], [address] [address] Office:
[2017-05-08 08:00] LABS: Absolute Lymphocyte Count 0.88 X10^3/ul (0.83-4.51); Absolute Neutrophil Count 10.4 X10^3/uL (2.0-7.7); Basophil# 0.02 X10^3/uL; Basophil% 0.2 % (0-1); Eosinophil# 0.22 X10^3/uL; Eosinophils% 1.8 % (0-5); Hematocrit 26.2 % (37-47); Hemoglobin 8.2 g/dl (12.0-15.0); Lymphocyte # 0.88 X10^3/ul (4.0); Mean Corp Hgb Conc 31.3 g/gl (32-36); Mean Corpuscular Hgb 28.4 pg (27.0-32.0); Mean Corpuscular Volume 90.7 fL (81-99); Monocyte# 1.06 X10^3/uL; Monocyte% 8.4 % (0-10); Neutrophil # 10.37 X10^3/uL (2.7-7.7); Neutrophil % 82.4 % (47-70); Platelet Count 355 K/mm3 (150-450); RBC Distribution Width CV 15.6 % (11.6-14.6); RBC Distribution Width SD 49.4 fl (35.1-43.9); Red Blood Count 2.89 M/mm3 (4.2-5.4); White Blood Count 12.6 K/mm3 (4.4-11.0)
[2017-05-08 08:05] LABS: POSITIVE COUNT NO; POSITIVE DIFFERENTIAL NO; POSITIVE MORPHOLOGY NO
[2017-05-08 08:11] LABS: Anion Gap 7 (5-15); BUN 4 mg/dL (7-18); BUN/Creat Ratio 7.8 RATIO (10-20); Calcium,Total 7.5 mg/dL (8.5-10.1); Chloride 101 mmol/L (98-107); Creatinine, Serum 0.51 mg/dL (0.55-1.02); EST Glomerular Filtration Rate 124 mL/min (>60); Est Glom Filt Rate - Afr Amer 150 mL/min (>60); Estimated Creatinine Clearance 37.26 ml/min; Glucose 124 mg/dL (70-110); Potassium 3.4 mmol/L (3.5-5.1); Sodium Level 138 mmol/L (136-145)
[2017-05-08] MEDS: Metoprolol Tartrate 25 MG Tablet PO ×2 (08:12→22:40)
--- NOTE | 2017-05-08 12:29 | CT_ITS ---
STUDY: CT CHEST WITHOUT CONTRAST REASON FOR EXAM: Female, 76 years old. Right lower lobe pneumonia. History of right lung abscess. RADIATION DOSAGE (If Supplied By Facility): CTDIvol = ( 9.34 ) mGy, DLP = ( 277.74 ) mGycm TECHNIQUE: Transaxial imaging was performed without the administration of intravenous contrast material. Multiplanar coronal and sagittal images were reformatted. Individualized dose optimization techniques were used for this CT. COMPARISON: Comparison is made with prior study dated March 03, 2016. FINDINGS: Small bilateral pleural effusions worse on the right side. Fluid is seen in the major fissures bilaterally. There is evidence of bibasilar infiltrates worse on the right side. Increased markings in the lingular segment of the left upper lobe. Subcutaneous emphysema is seen along the posterior lateral aspect of the right hemithorax. Normal heart and pericardium. There are multiple small lymph nodes within the mediastinum, which are normal in size and morphology most compatible with reactive lymph hyperplasia. Normal hilar regions. Normal unenhanced pulmonary arteries. Normal aorta arch and descending thoracic aorta. There are multi-level degenerative changes of the thoracic spine. There is no demonstrated abnormality of the visualized upper abdomen. CT/Chest without Contrast IMPRESSION: Bilateral pleural effusions right greater than left with bibasilar infiltrates right greater than left. Subcutaneous emphysema overlying the posterior lateral aspect of the right hemithorax extending to the upper right lateral abdominal wall. Electronically Signed: Juan Carlos Crump MD at 13:49 EST Tel [phone], Service support ,
--- NOTE | 2017-05-08 12:47 | NURSING ---
off unit via bed for ct chest
--- NOTE | 2017-05-08 14:29 | CASEMGMT ---
PRETTY COOPER discussed discharge needs with patient and after reviewing therapy notes. Patient and agree with [facility] for prison and therapy at discharge. Patient and state that they would like [facility] for HHC. PRETTY COOPER discussed possible need for home oxygen and preferred DME company is [facility]. Nursing to reevaluate patient for need for home oxygen in morning. Referral made to [facility] for HHC. PRETTY COOPER will continue to follow this patient and plan for safe discharge.
--- NOTE | 2017-05-08 18:20 | PN_ITS ---
Subjective: Patient was seen and examined today, her chest x-ray this morning showed an increased infiltrate in her right lung base, patient is still on 2 L of oxygen, I made the decision to obtain a CT scan of the chest, it showed areas of infiltrate at the lung bases, and talking with the radiologist, he felt that this was mainly due to atelectasis and not an active pneumonic infiltrate. I have elected to continue the patient on aerosol treatments and repeat a CBC tomorrow, I talked with surgery about this, it may be that the patient will need to go home on temporary oxygen. I do not believe the patient needs anymore IV diuresis at this time - Physical Exam General: Alert, Oriented x3, Cooperative, No apparent distress, Well developed, Well nourished HEENT: Atraumatic, PERRLA, EOMI, Normocephalic Oral: Moist Mucosa Neck: Supple, No JVD, No Nuchal Rigidity, Trachea Midline, Thyroid Normal Size and Texture Lungs: Normal air movement, Diminished - Decreased breath sounds at the right lung base Cardiovascular: Regular rate, Regular Rhythm, Normal S1, Normal S2, No murmurs, No Ectopic Activity, PMI Normal, No rub noted, No Gallop Abdomen: Soft, Non Tender, Non-Distended, No hernias noted Extremities: No clubbing, No cyanosis, No edema, Capillary Refill Less than 3 Seconds Skin: No rashes Neurological: Cranial nerves II-XII grossly intact, Neuro grossly intact, Sensory exam intact to light touch and pain, Coordination normal Psych/Mental Status: Normal Affect, Appropriate, Alert and oriented to time, place, person, mood and affect Vital Signs Temp Pulse Resp BP Pulse Ox 98.0 F 66 16 126/58 H 96 05/08/17 16:00 05/08/17 16:00 05/08/17 16:00 05/08/17 16:00 05/08/17 16:00 Oxygen Flow Rate 2 Oxygen Delivery Method Nasal Cannula Weight: 57.1 kg Body Mass Index (BMI) 23.0 Intake and Output for Last 24 Hours 05/06/17 05/07/17 05/08/17 23:59 23:59 23:59 Intake Total 3744 / 3744 1964 / 1964 1449 / 1449 Output Total 750 / 750 4000 / 4000 2550 / 2550 Balance 2994 / 2994 -2036 / -2036 -1101 / -1101 Laboratory Tests Past 24 Hrs 05/08/17 05/08/17 07:42 07:42 WBC 12.6 H RBC 2.89 L Hgb 8.2 L Hct 26.2 L MCV 90.7 MCH 28.4 MCHC 31.3 L RDW 15.6 H RDW Differential 49.4 H Plt Count 355 MPV 10.0 Immature Gran % (Auto) 0.200 Neut % (Auto) 82.4 H Lymph % (Auto) 7.0 L [place] % (Auto) 8.4 Eos % (Auto) 1.8 Baso % (Auto) 0.2 Absolute Neuts (auto) 10.4 H Absolute Lymphs (auto) 0.88 Total Counted Not Reportable Sodium 138 Potassium 3.4 L Chloride 101 Carbon Dioxide 30.0 Anion Gap 7 BUN 4 L Creatinine 0.51 L Estim Creat Clear Calc 37.26 Est GFR (MDRD) Af Amer 150 Est GFR (MDRD) Non-Af 124 BUN/Creatinine Ratio 7.8 L Glucose 124 H Calcium 7.5 L Assessment/Plan #1 hypoxia secondary to diastolic CHF and atelectasis-chest x-ray will be repeated tomorrow, I do not think the patient needs to be on programmed Lasix, we will continue aerosol treatments, patient may need home oxygen if she goes home tomorrow and her pulse ox is 88% or below #2 atelectasis-patient will continue aerosol treatments, chest x-ray will be repeated #3 hypertension #4 osteoarthritis #5 legal blindness #6 hypothyroidism #7 Invasive adenocarcinoma of the colon -postop day #3 right hemicolectomy Code Visit Inpatient E&M: 40049 Subs Hosp L2
[2017-05-08] MEDS: Zolpidem Tartrate 5 MG Tablet PO (22:40)
[2017-05-09] VITALS (12 sets, daily range): BP systolic 120–128; BP diastolic 51–58; PULSE 64–75; RESP 16–20; TEMP 36.6–37.1; O2SAT 83–98
[2017-05-09] MEDS: Ipratropium/Albuterol Sulfate 3 ML AMPUL.NEB INHALATION ×3 (00:49→13:48)
--- NOTE | 2017-05-09 05:20 | RAD_ITS ---
STUDY: X-RAY CHEST REASON FOR EXAM: Female, 76 years old. Shortness of breath. TECHNIQUE: Single AP portable view of the chest. COMPARISON: 08 May 2017 FINDINGS: Compared to previous exam there is continued stable appearance of the right lower lung effusion and airspace disease with mild increased volume. There is no demonstrated pleural abnormality. Normal size heart. Normal mediastinum and sherice. Normal visualized pulmonary arteries. There is atherosclerotic calcification of the aortic arch with tortuosity. Normal visualized thoracic spine. Normal visualized ribs, clavicles, and shoulders. There is no demonstrated abnormality of the visualized soft tissue structures of the upper abdomen. RAD/Chest 1 View (Portable) IMPRESSION: Mild increased lung volume with otherwise stable appearance of right lower lung airspace disease and effusion. Electronically Signed: Rohit Flaherty DO at 8:25 EST , Service support ,
[2017-05-09] MEDS: LORazepam 1 MG Tablet PO ×2 (05:34→14:59)
[2017-05-09] MEDS: Levothyroxine 50 MCG Tablet PO (05:34)
[2017-05-09 07:38] LABS: Absolute Lymphocyte Count 0.79 X10^3/ul (0.83-4.51); Absolute Neutrophil Count 7.5 X10^3/uL (2.0-7.7); Basophil# 0.03 X10^3/uL; Basophil% 0.3 % (0-1); Eosinophil# 0.44 X10^3/uL; Eosinophils% 4.8 % (0-5); Hematocrit 26.3 % (37-47); Lymphocyte # 0.79 X10^3/ul (4.0); Lymphocyte % 8.5 % (19-41); Mean Corp Hgb Conc 30.4 g/gl (32-36); Mean Corpuscular Hgb 27.3 pg (27.0-32.0); Mean Corpuscular Volume 89.8 fL (81-99); Monocyte# 0.53 X10^3/uL; Monocyte% 5.7 % (0-10); Neutrophil # 7.45 X10^3/uL (2.7-7.7); Neutrophil % 80.5 % (47-70); Platelet Count 409 K/mm3 (150-450); RBC Distribution Width CV 16.1 % (11.6-14.6); RBC Distribution Width SD 51.3 fl (35.1-43.9); Red Blood Count 2.93 M/mm3 (4.2-5.4); White Blood Count 9.3 K/mm3 (4.4-11.0)
--- NOTE | 2017-05-09 07:47 | PCM.DC.SUM ---
Discharge Date and Diagnosis - Problem List Patient Problems: Active and Suspected Problems (Last Reviewed 04/30/17 @ 10:59 by Reyna Larios) Malignant neoplasm of ascending colon (Acute) Date of Admission: 05/05/17 Date of Discharge: 05/09/17 - Primary Discharge Diagnosis Active and Suspected Problems (Last Reviewed 04/30/17 @ 10:59 by Reyna Larios) Malignant neoplasm of ascending colon (Acute) - Secondary Discharge Diagnosis Chronic Problems (Last Reviewed 04/30/17 @ 10:59 by Reyna Larios) Hypertension (Chronic) Hospital Course and Treatment Imaging Results: 05/09/17 05:20 Chest 1 View (Portable) [RAD] AM (NON MEDS) Clinical Impression(s) from Imaging Studies Chest X-Ray 05/07/17 07:16 IMPRESSION: CHF. Superimposed bibasilar atelectasis and/or infiltrates worse on the right side with blunting of both costophrenic angles. Electronically Signed: Juan Carlos Crump MD at 8:13 EST Tel [phone], Service support , Chest X-Ray 05/08/17 05:55 IMPRESSION: Progressive pleural parenchymal changes at the right lung base. Stable infiltration and/or atelectasis in the left lower lobe. Electronically Signed: Juan Carlos Crump MD at 8:27 EST Tel [phone], Service support , Chest CT 05/08/17 12:29 IMPRESSION: Bilateral pleural effusions right greater than left with bibasilar infiltrates right greater than left. Subcutaneous emphysema overlying the posterior lateral aspect of the right hemithorax extending to the upper right lateral abdominal wall. Electronically Signed: Juan Carlos Crump MD at 13:49 EST Tel [phone], Service support , Hospitalist for hypoxia Operations: colectomy Procedures: Transthoracic echo Summary of Care Provided: The patient is a 76 year old F who underwent an elective right hemicolectomy for neoplasm of the ascending colon. After this she was admitted to the hospital and kept n.p.o. until she was passing flatus. When she is passing flatus she was started on a clear liquid diet. When she tolerated that she was advanced to a regular diet. The patient was also hypoxic requiring oxygen. A chest x-ray revealed possible CHF and the hospitalist was consulted. She had an echocardiogram which did not show any signs of CHF. She was given Lasix which diuresed her well at subsequent chest x-ray showed possible infiltrate. A CT of the chest was obtained. This showed a right pleural effusion as well as a possible right lower lobe infiltrate but her white count continued to improve without antibiotics. This was felt that this was possibly atelectasis. The patient was weaned as much as she could but she was sent home on supplemental nasal cannula oxygen. Discharge Diet: Light diet - advance as tolerated Discharge Activity: Return to Normal Activity, May Shower May shower in (days): 1 - with the bandage in place. Additional Activity Instructions:: Pain medication may cause nausea. You should typically eat light foods as you take your pain medications. Pain medication may also cause constipation. If this is a problem for you, please discuss with your doctor. Call your doctor if your incision/area has: Continuous Slow Oozing, Sudden Increased Bleeding, Increased Pain/ Swelling, Increased Redness, Foul Smelling Discharge, Fever of 101 or Higher Call your doctor if you observe: Fever of 101 or Higher Suture Line Care: Avoid Pulling/Pushing, Avoid Pinching/Bending Home Medications: Medications to take at Discharge Levothyroxine [Synthroid] 50 mcg PO DAILY 03/02/17 Metoprolol Tartrate [Lopressor (beta yohana)] 25 mg PO BID 03/02/17 Valsartan [Diovan] 160 mg PO DAILY 03/02/17 Zolpidem Tartrate [Ambien] 10 mg PO QHS 03/02/17 lorazepam 1 mg tablet 1 mg PO TID 04/30/17 paroxetine 20 mg tablet 20 mg PO QAM 04/30/17 Folic Acid 1 mg PO DAILY 05/04/17 Acetaminophen [Tylenol Tablet] 650 mg PO Q6H PRN PRN tablet 05/09/17 Dextran 70/He-Cell [Tears Naturale, Artificial Tears] 2 drop LEFT EYE Q2H bottle 05/09/17 Docusate Sodium [Colace] 100 mg PO BID #10 cap 05/09/17 Oxycodone [Oxyir] 5 mg PO Q6H PRN PRN #40 tablet 05/09/17 Following Prescrptions Were Given to Patient: Oxycodone [Oxyir] 5 mg PO Q6H PRN PRN #40 tablet PRN Reason: Severe Pain (-01/20) Docusate Sodium [Colace] 100 mg PO BID #10 cap Primary Care Physician: Elvia Escalante MD [Primary Care Provider] - Please Follow Up With: Anshul Liang MD When: call to schedule follow up appt [phone] Meaningful Use Info Meaningful Use Diagnoses (Choose all that apply): None applicable
--- NOTE | 2017-05-09 07:50 | DS.PCM_ITS ---
Discharge Date and Diagnosis - Problem List Patient Problems: Active and Suspected Problems (Last Reviewed 04/30/17 @ 10:59 by Reyna Larios) Malignant neoplasm of ascending colon (Acute) Date of Admission: 05/05/17 Date of Discharge: 05/09/17 - Primary Discharge Diagnosis Active and Suspected Problems (Last Reviewed 04/30/17 @ 10:59 by Reyna Larios) Malignant neoplasm of ascending colon (Acute) - Secondary Discharge Diagnosis Chronic Problems (Last Reviewed 04/30/17 @ 10:59 by Reyna Larios) Hypertension (Chronic) Hospital Course and Treatment Imaging Results: 05/09/17 05:20 Chest 1 View (Portable) [RAD] AM (NON MEDS) Clinical Impression(s) from Imaging Studies Chest X-Ray 05/07/17 07:16 IMPRESSION: CHF. Superimposed bibasilar atelectasis and/or infiltrates worse on the right side with blunting of both costophrenic angles. Electronically Signed: Juan Carlos Crump MD at 8:13 EST Tel [phone], Service support , Chest X-Ray 05/08/17 05:55 IMPRESSION: Progressive pleural parenchymal changes at the right lung base. Stable infiltration and/or atelectasis in the left lower lobe. Electronically Signed: Juan Carlos Crump MD at 8:27 EST Tel [phone], Service support , Chest CT 05/08/17 12:29 IMPRESSION: Bilateral pleural effusions right greater than left with bibasilar infiltrates right greater than left. Subcutaneous emphysema overlying the posterior lateral aspect of the right hemithorax extending to the upper right lateral abdominal wall. Electronically Signed: Juan Carlos Crump MD at 13:49 EST Tel [phone], Service support , Hospitalist for hypoxia Operations: colectomy Procedures: Transthoracic echo Summary of Care Provided: The patient is a 76 year old F who underwent an elective right hemicolectomy for neoplasm of the ascending colon. After this she was admitted to the hospital and kept n.p.o. until she was passing flatus. When she is passing flatus she was started on a clear liquid diet. When she tolerated that she was advanced to a regular diet. The patient was also hypoxic requiring oxygen. A chest x-ray revealed possible CHF and the hospitalist was consulted. She had an echocardiogram which did not show any signs of CHF. She was given Lasix which diuresed her well at subsequent chest x-ray showed possible infiltrate. A CT of the chest was obtained. This showed a right pleural effusion as well as a possible right lower lobe infiltrate but her white count continued to improve without antibiotics. This was felt that this was possibly atelectasis. The patient was weaned as much as she could but she was sent home on supplemental nasal cannula oxygen. Discharge Diet: Light diet - advance as tolerated Discharge Activity: Return to Normal Activity, May Shower May shower in (days): 1 - with the bandage in place. Additional Activity Instructions:: Pain medication may cause nausea. You should typically eat light foods as you take your pain medications. Pain medication may also cause constipation. If this is a problem for you, please discuss with your doctor. Call your doctor if your incision/area has: Continuous Slow Oozing, Sudden Increased Bleeding, Increased Pain/ Swelling, Increased Redness, Foul Smelling Discharge, Fever of 101 or Higher Call your doctor if you observe: Fever of 101 or Higher Suture Line Care: Avoid Pulling/Pushing, Avoid Pinching/Bending Home Medications: Medications to take at Discharge Levothyroxine [Synthroid] 50 mcg PO DAILY 03/02/17 Metoprolol Tartrate [Lopressor (beta yohana)] 25 mg PO BID 03/02/17 Valsartan [Diovan] 160 mg PO DAILY 03/02/17 Zolpidem Tartrate [Ambien] 10 mg PO QHS 03/02/17 lorazepam 1 mg tablet 1 mg PO TID 04/30/17 paroxetine 20 mg tablet 20 mg PO QAM 04/30/17 Folic Acid 1 mg PO DAILY 05/04/17 Acetaminophen [Tylenol Tablet] 650 mg PO Q6H PRN PRN tablet 05/09/17 Dextran 70/He-Cell [Tears Naturale, Artificial Tears] 2 drop LEFT EYE Q2H bottle 05/09/17 Docusate Sodium [Colace] 100 mg PO BID #10 cap 05/09/17 Oxycodone [Oxyir] 5 mg PO Q6H PRN PRN #40 tablet 05/09/17 Following Prescrptions Were Given to Patient: Oxycodone [Oxyir] 5 mg PO Q6H PRN PRN #40 tablet PRN Reason: Severe Pain (-01/20) Docusate Sodium [Colace] 100 mg PO BID #10 cap Primary Care Physician: Elvia Escalante MD [Primary Care Provider] - Please Follow Up With: Anshul Liang MD When: call to schedule follow up appt [phone] Meaningful Use Info Meaningful Use Diagnoses (Choose all that apply): None applicable
[2017-05-09 07:52] LABS: POSITIVE COUNT NO; POSITIVE DIFFERENTIAL NO; POSITIVE MORPHOLOGY NO
[2017-05-09 07:53] LABS: Anion Gap 5 (5-15); BUN 5 mg/dL (7-18); BUN/Creat Ratio 10.8 RATIO (10-20); Calcium,Total 7.5 mg/dL (8.5-10.1); Chloride 106 mmol/L (98-107); Creatinine, Serum 0.46 mg/dL (0.55-1.02); EST Glomerular Filtration Rate 139 mL/min (>60); Est Glom Filt Rate - Afr Amer 168 mL/min (>60); Estimated Creatinine Clearance 37.26 ml/min; Glucose 124 mg/dL (70-110); Potassium 3.6 mmol/L (3.5-5.1); Sodium Level 142 mmol/L (136-145)
--- NOTE | 2017-05-09 08:36 | PN.SURG_ITS ---
Patient Problems: Active and Suspected Problems (Last Reviewed 04/30/17 @ 10:59 by Reyna Larios) Malignant neoplasm of ascending colon (Acute) Subjective: Patient is doing well this morning. She is tolerating a regular diet with flatus. She is not having any nausea or vomiting. She has not had a bowel movement yet. She does not describe any abdominal pain this morning. It has been well controlled with p.o. pain medication. - Physical Exam General: Alert, Cooperative Lungs: Normal air movement Cardiovascular: Regular rate, Regular Rhythm Abdomen: Soft, Non Tender, Non-Distended, - - Her incisions are clean dry and intact. Psych/Mental Status: Normal Affect Vital Signs Temp Pulse Resp BP Pulse Ox 98.5 F 73 18 128/58 H 94 05/09/17 03:51 05/09/17 03:51 05/09/17 03:51 05/09/17 03:51 05/09/17 03:51 Oxygen Flow Rate 2 Oxygen Delivery Method Nasal Cannula Weight: 125 lb 14.143 oz Body Mass Index (BMI) 23.0 Intake and Output for Last 24 Hours 05/07/17 05/08/17 05/09/17 23:59 23:59 23:59 Intake Total 1964 / 1964 1449 / 1449 300 / 300 Output Total 4000 / 4000 2550 / 2550 450 / 450 Balance -2036 / -2036 -1101 / -1101 -150 / -150 Laboratory Tests Past 24 Hrs 05/09/17 05/09/17 06:35 06:35 WBC 9.3 RBC 2.93 L Hgb 8.0 L Hct 26.3 L MCV 89.8 MCH 27.3 MCHC 30.4 L RDW 16.1 H RDW Differential 51.3 H Plt Count 409 MPV 10.0 Immature Gran % (Auto) 0.200 Neut % (Auto) 80.5 H Lymph % (Auto) 8.5 L [place] % (Auto) 5.7 Eos % (Auto) 4.8 Baso % (Auto) 0.3 Absolute Neuts (auto) 7.5 Absolute Lymphs (auto) 0.79 L Total Counted Not Reportable Sodium 142 Potassium 3.6 Chloride 106 Carbon Dioxide 31.0 Anion Gap 5 BUN 5 L Creatinine 0.46 L Estim Creat Clear Calc 37.26 Est GFR (MDRD) Af Amer 168 Est GFR (MDRD) Non-Af 139 BUN/Creatinine Ratio 10.8 Glucose 124 H Calcium 7.5 L Clinical Impression(s) from Imaging Studies Chest CT 05/08/17 12:29 IMPRESSION: Bilateral pleural effusions right greater than left with bibasilar infiltrates right greater than left. Subcutaneous emphysema overlying the posterior lateral aspect of the right hemithorax extending to the upper right lateral abdominal wall. Electronically Signed: Juan Carlos Crump MD at 13:49 EST Tel [phone], Service support , Chest X-Ray 05/09/17 05:20 IMPRESSION: Mild increased lung volume with otherwise stable appearance of right lower lung airspace disease and effusion. Electronically Signed: Rohit Flaherty DO at 8:25 EST , Service support , Assessment/Plan Active and Suspected Problems (Last Reviewed 04/30/17 @ 10:59 by Reyna Larios) Malignant neoplasm of ascending colon (Acute) 76-year-old female status post right hemicolectomy 1. The patient is doing well today. She is tolerating a diet and I will start her on Colace. She is still on 2 L of nasal cannula oxygen. She still has a right pleural effusion that needs to dissipate. She will likely go home on supplemental nasal cannula. Her white count has returned to normal site do not believe she has pneumonia. 2. Follow-up with Dr. Liang. Davie Isaacs MD Pager: [facility] [address], [place] [phone] Office:
--- NOTE | 2017-05-09 09:52 | NURSING ---
0830 PT got pt up in room to walk, pox 83% on Ra, on 2L pox 94%. Doar Mike RN
[2017-05-09] MEDS: oxyCODONE 5 MG Tablet PO (11:55)
[2017-05-09] MEDS: Docusate Sodium 100 MG Capsule PO (12:01)
[2017-05-09] MEDS: Metoprolol Tartrate 25 MG Tablet PO (12:04)
--- NOTE | 2017-05-09 12:54 | CASEMGMT ---
Per Chelly OLSEN, pt qualifies for home oxygen at this time. Pt's preference is [facility] per report from Brittany OLSEN CM. Referral faxed to [facility] at this time. Call placed to answering service and received return call from Roshan, sulaiman, and he states that he will be en route. Roshan is aware that pt to be discharged today. F2F for home health faxed to [facility] previously by Juli, school attendance secretary and will follow green sheet for instructions when pt discharged. Mayte OLSEN CM
--- NOTE | 2017-05-09 17:44 | PCM.PROGNOTE ---
Subjective: Patient seen and examined today, she qualified for home O2 at 2 L, this will be set up today for her, patient's white blood cell count today was normal, surgery is cleared her for discharge. Pulse ox on room air was 83% at rest. - Physical Exam General: Alert, Oriented x3, Cooperative HEENT: Atraumatic, PERRLA, EOMI, Normocephalic Oral: Moist Mucosa Neck: Supple, No JVD, No Nuchal Rigidity, Trachea Midline, Thyroid Normal Size and Texture Lungs: Clear to auscultation, No rhonchi, No wheeze, No rales, Diminished - at right base Cardiovascular: Regular rate, Regular Rhythm, Normal S1, Normal S2, No murmurs, No Ectopic Activity, PMI Normal, No rub noted, No Gallop Abdomen: Soft, Non Tender, Non-Distended Extremities: No clubbing, No cyanosis, No edema, Capillary Refill Less than 3 Seconds Skin: No rashes, No breakdown Musculoskeletal: No Tenderness to Palpation of Joints or Extremities Neurological: Cranial nerves II-XII grossly intact, Neuro grossly intact, Sensory exam intact to light touch and pain, Coordination normal Psych/Mental Status: Normal Affect, Appropriate, Alert and oriented to time, place, person, mood and affect Vital Signs Temp Pulse Resp BP Pulse Ox 98 F 64 20 H 120/53 L 96 05/09/17 17:06 05/09/17 17:06 05/09/17 17:06 05/09/17 17:06 05/09/17 17:06 Oxygen Flow Rate [AMBULATION 2 with Oxygen] Oxygen Flow Rate [At REST on 0 Room Air] Oxygen Flow Rate 2 Oxygen Delivery Method Nasal Cannula Weight: 57.1 kg Body Mass Index (BMI) 23.0 Intake and Output for Last 24 Hours 05/07/17 05/08/17 05/09/17 23:59 23:59 23:59 Intake Total 1963 / 1963 1449 / 1449 540 / 540 Output Total 4000 / 4000 2550 / 2550 850 / 850 Balance -2036 / -2036 -1101 / -1101 -310 / -310 Laboratory Tests Past 24 Hrs 05/09/17 05/09/17 06:35 06:35 WBC 9.3 RBC 2.93 L Hgb 8.0 L Hct 26.3 L MCV 89.8 MCH 27.3 MCHC 30.4 L RDW 16.1 H RDW Differential 51.3 H Plt Count 409 MPV 10.0 Immature Gran % (Auto) 0.200 Neut % (Auto) 80.5 H Lymph % (Auto) 8.5 L [place] % (Auto) 5.7 Eos % (Auto) 4.8 Baso % (Auto) 0.3 Absolute Neuts (auto) 7.5 Absolute Lymphs (auto) 0.79 L Total Counted Not Reportable Sodium 142 Potassium 3.6 Chloride 106 Carbon Dioxide 31.0 Anion Gap 5 BUN 5 L Creatinine 0.46 L Estim Creat Clear Calc 37.26 Est GFR (MDRD) Af Amer 168 Est GFR (MDRD) Non-Af 139 BUN/Creatinine Ratio 10.8 Glucose 124 H Calcium 7.5 L Assessment/Plan #1 hypoxia secondary to diastolic CHF and atelectasis-patient will require home O2, I told her and her is for probably be temporary, she will be placed on 2 L continuous, she was instructed to have her pulse ox checked at her primary physician's office when she has her next appointment in approximately 10 days #2 atelectasis-patient has been encouraged to ambulate at home #3 hypertension #4 osteoarthritis #5 legal blindness #6 hypothyroidism #7 Invasive adenocarcinoma of the colon -postop day #4 right hemicolectomy Code Visit Inpatient E&M: 25814 Subs Hosp L2
== END 2017-05-09 17:31 | disposition home health service (06) | DRG 330 ==
PROVIDERS: Anesthesiology; Internal Medicine; Physician Assistant; Surgery; Admitting Provider Surgery; Family Provider Internal Medicine; PCP Internal Medicine; Visit Provider Surgery
PROC: 0DTF0ZZ Resection of Right Large Intestine, Open Approach (ICD-10-PCS; CPT 44205; principal; 2017-05-05 13:45)
DX: C18.2 Malignant neoplasm of ascending colon (principal); J98.11 Atelectasis; E03.9 Hypothyroidism, unspecified; M19.90 Unspecified osteoarthritis, unspecified site; Z53.31 Laparoscopic surgical procedure converted to open procedure; H54.8 Legal blindness, as defined in USA; I10 Essential (primary) hypertension; R09.02 Hypoxemia
CPT/HCPCS: 36415; 71045; 71250; 80048; 80076; 83880; 84443; 85025; 85027; 88307; 88309; 88341; 88342; 93005; 93306; 94640; 94667; 94762; 97110; 97162; 97166; J7030; J7120; A4216; J1170; J1940; J2405

== ENCOUNTER 2017-08-12 13:21 | Emergency (ER) | payer MEDICARE, OTHER, SELFPAY ==
[2017-08-12 13:22] VITALS: BP 159/65; PULSE 67; RESP 14; TEMP 36.3; O2SAT 96; BMI 21.0
--- NOTE | 2017-08-12 13:35 | NURSING ---
NO LW OR POA
--- NOTE | 2017-08-12 13:44 | CT_ITS ---
STUDY: CT CERVICAL SPINE WITHOUT CONTRAST REASON FOR EXAM: Female, 76 years old. Trauma, status post fall RADIATION DOSAGE (If Supplied By Facility): CTDIvol = ( 12.60 ) mGy, DLP = ( 200.46 ) mGycm TECHNIQUE: High resolution transaxial imaging was performed without contrast material. Sagittal and coronal images were reconstructed. Individualized dose optimization techniques were used for this CT. COMPARISON: None FINDINGS: Normal craniovertebral junction. Normal anterior atlantoaxial articulation. Normal odontoid process. Normal cervical lordosis. Normal vertebral bodies and posterior osseous elements. There are multilevel degenerative changes present. There is mild anterolisthesis at C4 on C5 due to degenerative facet changes. There is fusion of the facet joints at C3-C4. No acute fracture is seen. Normal visualized soft tissue structures. CT/Spine Cervical without Contras IMPRESSION: Diffuse degenerative changes. No acute bony abnormality. Electronically Signed: Miko Addison DO at 14:35 EDT Tel , Service support ,
--- NOTE | 2017-08-12 13:44 | RAD_ITS ---
STUDY: X-RAY - LEFT KNEE REASON FOR EXAM: Injury after fall. TECHNIQUE: 2 view(s) of the knee. COMPARISON: None. FINDINGS: Normal visualized distal femur. Normal visualized proximal tibia and fibula. Normal proximal tibiofibular articulation. Normal medial femorotibial compartment. Normal lateral femorotibial compartment. Normal patellofemoral articulation. There is an enthesophyte at the superior pole of the patella. RAD/Knee 1 or 2 Views IMPRESSION: Patellar enthesophyte. No demonstrated fracture. Electronically Signed: Sourav Alvarez MD at 14:46 EDT Tel , Service support ,
[2017-08-12] MEDS: HYDROcodone Bitartrate/Apap 5/325 Tablet PO (13:48)
--- NOTE | 2017-08-12 15:22 | ED.VISSUMM ---
- ER Visit Summary Date of Service: 08/12/17 Chief Complaint: Fall History of Present Illness: The patient is a [address] Escalante. She reports that she was walking and has poor vision. She did not notice there was a curb and she walked off the curb and lost her balance. She fell forward and landed on her knees. She reports that she has left knee pain is 5 out of 10 severity and right knee pain is 2 out of 10 severity she also plans of neck pain is 2 out of 10 severity. She denies any blow to head or loss of consciousness. She is not on any blood thinners. Physical Examination: Vitals: Stable. Afebrile. Neck: Mild diffuse tenderness palpation. Full ROM without difficulty. Cleared by NEXUS criteria. Back: No vertebral tenderness. General: A&O x 3. NAD. Cardiovascular exam: Regular rate and rhythm, no murmur, rub or gallop. Respiratory exam: Chest nontender. No crepitus. Clear to auscultation bilaterally. No wheezes or stridor. Abdominal exam: Soft, nontender, nondistended, normal bowel sounds. No pain in RUQ or LUQ specifically. No peritoneal signs. Extremity: Abrasion to her knees bilaterally left greater than right. Good range of motion with minimal pain. No pain with axial load. Test Results: CT C-spine shows degenerative changes. Left knee x-ray shows no acute disease. Emergency Department Course and Treatment: Patient was treated with Donnelly and is resting comfortably. Treatment Plan: Patient be discharged with Donnelly and Colace. Instructed follow-up her primary care physician in 3-5 days not improving. Return to the emergency department for any worsening symptoms. Disposition: To home in improved and stable condition. Impression: 1. Fall. 2. Abrasion left leg. 3. Cervical strain. This note was generated with [employer] dictation software. It may contain incorrect words, spelling, and punctuation that were not noted in review of the chart prior to signing ED Disposition - Plan for ED Patient: Disposition: Home or Assisted Living Chief Complaint: Fall Instructions: ED Mechanical Fall Prescriptions: Docusate Sodium [Colace] 100 mg PO DAILY #20 capsule Hydrocodone/Acetaminophen [Donnelly 5-325 Tablet] 1 - 2 each PO 4X/DAY PRN PRN 3 Days #12 tablet PRN Reason: Pain Referrals: Elvia Escalante MD [Primary Care Provider] - 3-5 Days if not improving
[2017-08-12 15:42] VITALS: BP 148/64; PULSE 64; RESP 18; O2SAT 99
== END 2017-08-12 15:44 | disposition home or self-care (01) ==
LOC: ED 14:30
PROVIDERS: Emergency Provider Emergency Medicine; Family Provider Internal Medicine; PCP Internal Medicine
DX: S16.1XXA Strain of muscle, fascia and tendon at neck level, initial encounter (principal); S80.212A Abrasion, left knee, initial encounter; S80.211A Abrasion, right knee, initial encounter; I10 Essential (primary) hypertension; Z85.038 Personal history of other malignant neoplasm of large intestine; Z79.899 Other long term (current) drug therapy; W17.89XA Other fall from one level to another, initial encounter; Y93.01 Activity, walking, marching and hiking; Y92.89 Other specified places as the place of occurrence of the external cause; Y99.8 Other external cause status
CPT/HCPCS: 72125; 73560; 99283

== ENCOUNTER 2018-02-10 23:02 | Emergency (ER) | payer MEDICARE, OTHER, SELFPAY ==
[2018-02-10 23:02] VITALS: BP 130/71; PULSE 61; RESP 16; TEMP 36.9; O2SAT 97; BMI 21.2
--- NOTE | 2018-02-10 23:41 | RAD_ITS ---
STUDY: X-RAY - RIGHT FOOT CLINICAL: Female, 77 years old. Trauma and pain TECHNIQUE: 3 view(s) of the foot. COMPARISON: None. FINDINGS: Normal talus, calcaneus, and tarsal bones. Normal visualized subtalar, talonavicular, calcaneocuboid, tarsal and tarsometatarsal articulations. Normal metatarsi. Normal metatarsophalangeal joint of the great toe. Normal tibial and fibular sesamoid bones. Normal interphalangeal joint of the great toe. Normal phalanges of the great toe. Normal second through fifth metatarsophalangeal joints. Normal interphalangeal joints and phalanges of the lesser toes. The soft tissue structures are unremarkable. RAD/Foot min 3 Views IMPRESSION: Normal x-ray examination of the foot. Electronically Signed: Charan Tovar MD at 0:55 EDT Tel , Service support ,
--- NOTE | 2018-02-10 23:41 | RAD_ITS ---
STUDY: X-RAY - RIGHT ANKLE REASON FOR EXAM: Female, 77 years old. Trauma and swelling TECHNIQUE: 3 view(s) of the ankle. COMPARISON: None. FINDINGS: Normal visualized distal tibia and fibula. A small avulsion injury of the medial aspect of the medial malleolus is noted. This is age indeterminate. Correlate for tenderness in that region. Normal tibiotalar articulation and ankle mortise. Normal visualized talus and calcaneus. The visualized subtalar, talonavicular, calcaneocuboid and tarsal articulations are normal. The soft tissue structures are unremarkable. RAD/Ankle min 3 Views IMPRESSION: A small avulsion injury of the medial aspect of the medial malleolus is noted. This is age indeterminate. Correlate for tenderness in that region. Electronically Signed: Charan Tovar MD at 0:50 EDT Tel , Service support ,
--- NOTE | 2018-02-10 23:42 | ED.VISSUMM ---
- ER Visit Summary Date of Service: 02/10/18 Chief Complaint: right ankle pain History of Present Illness: The patient is a 77 F who presents for evaluation of a right ankle injury. 8 hours prior to presentation patient slipped on a stair, not noting it was there and expecting to step on the ground. She twisted her right ankle but had no complaints at that time. She went to bed and developed excruciating pain in the right ankle. Denies any other injuries. No head or neck trauma. Not on any blood thinners. Patient has not taken anything for pain. History of colon cancer. She is not on any blood thinners. Physical Examination: Vital signs: afebrile, hemodynamically stable, no hypoxia on room air General: well nourished, well developed, in no distress Skin: warm, dry, no rash, no pallor HEENT: normocephalic and atraumatic; PERRL, EOMI, moist mucous membranes, no maxillofacial trauma Neck: No midline deformities, tenderness or step-offs, full active range of motion Cardiovascular: regular rate and rhythm without murmurs, no peripheral edema, 2+ pulses all distal extremities Respiratory: No increased work of breathing, lungs are clear to auscultation bilaterally, no rales, rhonchi or wheezing Abdominal: Abdomen is soft, nontender with normoactive bowel sounds, no guarding or rebound, no masses MSK: Moves all extremities, no deformities, normal strength, pelvis is stable. Examination of the right lower extremity shows no swelling, deformities to the lower leg or ankle. Patient has tenderness over the medial malleolus, anterior ankle, and navicular head. Painful range of motion of the ankle. DP pulses are 2+ and symmetric. Aperture in color symmetric in the feet. Sensation intact all dermatomes. Neuro: Awake and alert, oriented ?4. No facial droop, sensation and motor function intact and symmetric Test Results: Clinical Impression(s) from Imaging Studies Ankle X-Ray 02/10/18 23:41 IMPRESSION: A small avulsion injury of the medial aspect of the medial malleolus is noted. This is age indeterminate. Correlate for tenderness in that region. Electronically Signed: Charan Tovar MD at 0:50 EDT Tel , Service support , Foot X-Ray 02/10/18 23:41 IMPRESSION: Normal x-ray examination of the foot. Electronically Signed: Charan Tovar MD at 0:55 EDT Tel , Service support , Medications Given Discontinued Medications Oxycodone HCl (Oxyir) 5 mg PO X1 ONE Stop: 02/10/18 23:43 Last Admin: 02/10/18 23:55 Dose: 5 mg Oxycodone HCl (Oxyir) 0 mg PO .TAKE HOME MED ONE Stop: 02/11/18 01:28 Last Admin: 02/11/18 01:46 Dose: 20 mg Emergency Department Course and Treatment: Patient was given oxycodone for pain. An x-ray of the ankle and foot were performed. X-ray was notable only for a small avulsion injury of the medial aspect of the medial malleolus of undetermined age. Patient does have tenderness over the medial malleolus, and this may be an acute injury related to her ankle injury. Patient was placed in a walking boot. She was given a prescription for Percocet for pain for a severe ankle sprain with concern for small medial malleolus avulsion fracture. She is already established with an orthopedic doctor and will follow up within 1 week with him. Return precautions given. Patient discharged home. Treatment Plan: [] Disposition: [] Impression: Severe right ankle sprain, avulsion fracture of medial malleolus of unknown acuity This note was generated with [employer] dictation software. It may contain incorrect words, spelling, and punctuation that were not noted in review of the chart prior to signing ED Disposition - Plan for ED Patient: Disposition: Home or Assisted Living Chief Complaint: Lower Extremity Injury Instructions: ED Sprain Ankle W X Ray Prescriptions: Oxycodone HCl/Acetaminophen [Percocet 5/325] 1 tab PO Q6H PRN PRN 3 Days #12 tab PRN Reason: Pain Referrals: Javier Camejo MD [STAFF PHYSICIAN] - 5-7 Days Elvia Escalante MD [Primary Care Provider] - Additional Instructions: You have sprained your ankle, and there may be a small bone chip off the inner ankle. Please wear the walking boot until you follow-up with orthopedics. Bear weight as comfortable. Take the Percocet as needed for pain. Rest and elevate the ankle as much as possible to help with swelling. Follow-up with orthopedics within 1 week. If you have any worsening of your condition or any new concerning symptoms, please return immediately to the emergency department for another evaluation.
[2018-02-10] MEDS: oxyCODONE 5 MG Tablet PO (23:55)
--- NOTE | 2018-02-11 01:28 | ED.DEP ---
ED Disposition - Plan for ED Patient: Disposition: Home or Assisted Living Chief Complaint: Lower Extremity Injury Instructions: ED Sprain Ankle W X Ray Prescriptions: Oxycodone HCl/Acetaminophen [Percocet 5/325] 1 tab PO Q6H PRN PRN 3 Days #12 tab PRN Reason: Pain Referrals: Elvia Escalante MD [Primary Care Provider] - Javier Camejo MD [STAFF PHYSICIAN] - 5-7 Days Additional Instructions: You have sprained your ankle, and there may be a small bone chip off the inner ankle. Please wear the walking boot until you follow-up with orthopedics. Bear weight as comfortable. Take the Percocet as needed for pain. Rest and elevate the ankle as much as possible to help with swelling. Follow-up with orthopedics within 1 week. If you have any worsening of your condition or any new concerning symptoms, please return immediately to the emergency department for another evaluation.
[2018-02-11] MEDS: oxyCODONE 5 MG Tablet PO (01:46)
[2018-02-11 01:51] VITALS: BP 145/65; PULSE 65; RESP 18; O2SAT 96
== END 2018-02-11 01:52 | disposition home or self-care (01) ==
PROVIDERS: Emergency Provider Emergency Medicine; Family Provider Internal Medicine; PCP Internal Medicine
DX: S82.54XA Nondisplaced fracture of medial malleolus of right tibia, initial encounter for closed fracture (principal); S93.401A Sprain of unspecified ligament of right ankle, initial encounter; Z85.038 Personal history of other malignant neoplasm of large intestine; Z79.899 Other long term (current) drug therapy; Y93.01 Activity, walking, marching and hiking; Y92.89 Other specified places as the place of occurrence of the external cause; Y99.8 Other external cause status
CPT/HCPCS: 73610; 73630; 99283

== ENCOUNTER 2019-11-09 14:11 | Emergency (ER) | payer MEDICARE, OTHER, SELFPAY ==
[2019-06-07 10:06] VITALS: BMI 22.8
[2019-11-09 14:16] VITALS: BP 185/72; PULSE 69; RESP 16; TEMP 36.1; O2SAT 94; BMI 25.8
--- NOTE | 2019-11-09 14:24 | RAD_ITS ---
STUDY: X-RAY - UNILATERAL RIBS ( LEFT ) WITH CHEST REASON FOR EXAM: Female, 78 years old. Fell over a chair, anterior rib pain -- painful to breathe TECHNIQUE - RIBS: 4 view(s) of the ribs. TECHNIQUE - CHEST: Single AP portable view of the chest. COMPARISON: Comparison is made with prior examination dated 05/09/2017. FINDINGS - RIBS: Nondisplaced fracture along the anterolateral aspect of the left seventh and eighth ribs. FINDINGS - CHEST: Stable elevation of the right hemidiaphragm. Mild increased linear markings at the left lung base suggestive of scarring. Normal size heart. Normal mediastinum and sehrice. Normal visualized pulmonary arteries. There is atherosclerotic tortuosity of the aortic arch and descending thoracic aorta. Normal visualized thoracic spine. Normal visualized ribs, clavicles, and shoulders. There is no demonstrated abnormality of the visualized soft tissue structures of the upper abdomen. RAD/Ribs Uni Min 3V w/PA Chest IMPRESSION: RIBS: Nondisplaced fractures involving the anterolateral aspects of the left seventh and eighth ribs. CHEST: Mild scarring at the left lung base. Electronically Signed: Juan Carlos Crump, at 15:23 EDT , Service support ,
--- NOTE | 2019-11-09 14:25 | RAD_ITS ---
STUDY: X-RAY - LEFT KNEE REASON FOR EXAM: Female, 78 years old. Fell over a chair, pain TECHNIQUE: 4 view(s) of the knee. COMPARISON: None. FINDINGS: Normal visualized distal femur. Normal visualized proximal tibia and fibula. Normal proximal tibiofibular articulation. Normal medial femorotibial compartment. Normal lateral femorotibial compartment. Normal patellofemoral articulation. Small spur along the anterior superior aspect of the patella. The soft tissue structures are unremarkable. RAD/Knee 4 or More Views IMPRESSION: Normal x-ray examination of the knee. Electronically Signed: Juan Carlos Crump, at 15:21 EDT , Service support ,
--- NOTE | 2019-11-09 14:27 | ED.VIS.GEN ---
History of Present Illness Chief Complaint: Fall Informant: Patient Onset: Today Current Severity: Moderate Maximum Severity: Moderate Narrative: Patient presents after fall. She states she is legally blind and was at a local store. She took a few steps and ran into a chair that she did not see. She fell forward striking her left lower ribs against the chair and then fell to the floor striking her left knee. She did not lose consciousness. She denies any other injury. - Past Medical History (1) Hypothyroidism Status: Chronic (2) Hepatitis C Status: Chronic (3) Essential (primary) hypertension Status: Chronic (4) Malignant neoplasm of ascending colon Status: Chronic (5) Peptic ulcer disease Status: Chronic Past Medical History - Allergies and Home Meds Allergies/Adverse Reactions: Allergies adhesive Allergy (Verified 11/09/19 14:14) Rash butorphanol [From Stadol] Adverse Reaction (Verified 11/09/19 14:14) unknown chlordiazepoxide [From Librium] Adverse Reaction (Verified 11/09/19 14:14) Unknown hydrochlorothiazide Adverse Reaction (Verified 11/09/19 14:14) syncope toprol Adverse Reaction (Uncoded 11/09/19 14:14) blurred vision Primary Care Physician: Elvia Escalante MD [Primary Care Provider] - Prior records reviewed: Yes Lives: Spouse/ Significant Other Smoking Status: Never smoker Review of Systems General: Denies: Chills, Fever Eyes: Denies: Visual changes - bilaterally ENT: Denies: Bilateral ear pain Cardiovascular: Reports: Chest pain - Left lower ribs Respiratory: Reports: Dyspnea - Left rib pain with deep breath. Denies: Cough Gastrointestinal: Denies: Abdominal pain, Nausea, Vomiting, Diarrhea Musculoskeletal: Reports: Extremity Pain. Denies: Neck pain, Back pain Skin: Denies: Rash Neurological: Denies: Headache Hematologic: Denies: Easy bruising, Easy bleeding Allergy: Denies: Uticaria Physical Exam Vital Signs/Narrative: Vital Signs Temp Pulse Resp BP Pulse Ox 11/09/19 14:16 97 F L 69 16 185/72 H 94 Inital Vital Signs reviewed: Yes General: Well nourished, Well developed Head: Normocephalic ENT: Moist mucous membranes Neck: Supple, - - No C-spine tenderness. Cardiovascular: Regular rate, Regular rhythm Respiratory: No distress, CTA bilaterally, Chest tenderness - Tenderness of the left lower ribs. Mild erythema noted. No crepitus. Abdomen: Soft, Nontender Extremities: - - Mild tenderness of the left anterior knee. Patient is able to straight leg raise her foot off the bed. Skin: - - Left chest wall erythema as noted above. Neurological: Alert, Oriented x3 Psychological: Normal affect Diagnostic/Tx/Re-eval Impressions Ribs w/Chest X-Ray 11/09/19 14:24 IMPRESSION: RIBS: Nondisplaced fractures involving the anterolateral aspects of the left seventh and eighth ribs. CHEST: Mild scarring at the left lung base. Electronically Signed: Juan Carlos Alisia, at 15:23 EDT , Service support , Knee X-Ray 11/09/19 14:25 IMPRESSION: Normal x-ray examination of the knee. Electronically Signed: Juan Carlos Alisia, at 15:21 EDT , Service support , 11/09/19 14:24 Ribs Uni Min 3V w/PA Chest [RAD] Stat 11/09/19 14:25 Knee 4 or More Views [RAD] Stat - Medical Decision Making Patient was given Tylenol and oxycodone for pain. Test results are discussed with her. She does have 2 rib fractures but no evidence of pneumothorax. Patient will be given Percocet for home which she has done well with in the past. She is to follow with her primary care physician within 1 week. ED Disposition - Plan for ED Patient: Disposition: Home or Assisted Living Diagnosis: Rib fracture Instructions: ED Rib Fx Prescriptions: Oxycodone HCl/Acetaminophen [Percocet 5/325] 1 tablet PO Q6H PRN PRN 3 Days #12 tablet PRN Reason: Pain Transmission Status: Received by [id number] Referrals: Elvia Escalante MD [Primary Care Provider] - 1 Week
[2019-11-09] MEDS: Acetaminophen 325 MG Tablet 650 MG PO (14:37)
[2019-11-09] MEDS: oxyCODONE 5 MG Tablet PO ×2 (14:38→16:20)
== END 2019-11-09 17:38 | disposition home or self-care (01) ==
PROVIDERS: Emergency Provider Emergency Medicine; PCP Internal Medicine
DX: S22.39XA Fracture of one rib, unspecified side, initial encounter for closed fracture (principal); I10 Essential (primary) hypertension; E03.9 Hypothyroidism, unspecified; W19.XXXA Unspecified fall, initial encounter; Z79.899 Other long term (current) drug therapy
CPT/HCPCS: 71101; 73564; 99285

== ENCOUNTER → 2020-02-20 09:05 | Outpatient (CLI) | payer MEDICARE, OTHER, SELFPAY ==
--- NOTE | 2020-02-20 08:30 | PET_ITS ---
EXAMINATION: FDG PET-CT INDICATIONS: An 79-year-old female with reported history of colorectal carcinoma presenting for restaging examination and evaluation of pulmonary nodularity. COMPARISON EXAMINATION: CT of the chest report dated 01/26/2020, CT of the abdomen and pelvis report dated 01/19/2020 INDEX LESION SIZE SUV INTERPRETATION Left lobe hepatic parenchyma segment IV a 21.5-mm (largest) (frame 124) 4.4 (max) ratio > 2.0 Fulfills quantitative criteria for viable neoplasm Right mid abdominal mesentery associated with postsurgical change 39.4-mm (frame 98) 7.1 (max) May warrant histopathologic investigation secondary to the quantitative degree of uptake NON-INDEX LESION SIZE SUV INTERPRETATION Right thoracic perihilum 2.9 Quantitative criteria for viable neoplasm are not fulfilled TECHNIQUE: Following the intravenous administration of 13.6 mCi of F-18 deoxyglucose via the right antecubital fossa, multiplanar image acquisitions of the neck, chest, abdomen and pelvis to level of mid thigh, obtained at one hour post radiopharmaceutical administration contemporaneously interpreted with the current CT of the neck, chest, abdomen and pelvis, to level of mid thigh, dated 02/20/[address] of the chest report dated 01/26/2020, CT of the abdomen and pelvis report dated 01/19/2020 reveals: BLOOD GLUCOSE LEVEL:?? 86 mg/dl?HEIGHT:?62 inches?WEIGHT: 127 lbs. FINDINGS: 1. Focal increased glucose metabolism is defined in the left lobe of the hepatic (1.9) parenchyma in the distribution of segment IV a, generating a calculated maximal standard uptake value of 4.4, with a lesion to liver background ratio greater than 2.0. The maximal axial diameter of the corresponding metabolic, morphologic abnormality on review of CT of the abdomen dated 02/20/2020 is 21.5-mm (transverse). 2. Mild increased FDG distribution is noted in the right thoracic perihilum registering a calculated maximal standard uptake value of 2.9. Quantitative criteria for centrally located thoracic/mediastinal viable neoplasm are not fulfilled. 3. Increased glucose metabolism is manifest in the right mid abdominal mesentery in proximity to surgical clip placement-postsurgical change. The calculated maximal standard uptake value is 7.4. The maximal axial diameter of the metabolic abnormality is 39.4-mm. 4. Normal physiologic distribution of the radiopharmaceutical is apparent in the splenic parenchyma, both renal units, bladder and visualized intestinal tract. The visualized portion of the cerebral cortex demonstrate symmetric and preserved glucose metabolism. There is prominent tracer concentration observed in the left-right lobes of a u-shaped thyroid gland. Pertinent CT findings are as follows: CHEST: There is atherosclerotic calcification defined in the thoracic aorta without evidence of dilatation-aneurysm formation. Bilateral axillary soft tissue densities with fatty hilus are non-glucose avid. Mediastinal soft tissue reveals no evidence of increased tracer uptake. There are no parenchymal densities-nodules defined in the right and left hemithorax with discernible quantitatively significant increased FDG uptake. ABDOMEN AND PELVIS: There is borderline fatty metamorphosis-steatosis defined in the hepatic parenchyma. Cholelithiasis is demonstrated. There is atherosclerotic calcification defined in the abdominal aorta without evidence of dilatation-aneurysm formation. Pelvic arterial calcification is observed. Subcentimeter bilateral inguinal soft tissue densities are ametabolic. SKELETAL: Sclerotic changes are defined in the right anterior iliac wing without evidence of increased tracer uptake. Nodular sclerotic foci otherwise noted in the bilateral hemipelvis reveal no evidence of facilitated FDG uptake. Degenerative changes are noted in the cervical, thoracic and lumbar spine. PET/PET/CT Tumor Base -Thigh Init IMPRESSION: 1. ABNORMAL EXAMINATION INDICATIVE OF MALIGNANT VIABLE NEOPLASM. 2. Increased FDG concentration observed in the left lobe of the hepatic parenchyma involving segment Tim fulfills quantitative criteria for hepatic metastatic disease. (Delbeke et al, Archives of Surgery, 133:510 1998). 3. Enhanced tracer uptake noted in the right mid abdominal mesentery in proximity to surgical clip placement may necessitate further clinical evaluation secondary to the quantitative degree of uptake. 4. The right thoracic perihilar increased in radiopharmaceutical concentration does not fulfill quantitative criteria for viable neoplasm. Electronic Signature Parminder Issa D.O. Accurate Quantification of SUVs for this report are calculated using the exclusive [employer]. Electronically Signed: Parminder Issa DO at 21:39 EST Tel , Service support ,
== END ==
PROVIDERS: PCP Internal Medicine; Referring Provider Nurse Practitioner; Visit Provider Nurse Practitioner
DX: C18.0 Malignant neoplasm of cecum (principal); R97.0 Elevated carcinoembryonic antigen [CEA]; R93.5 Abnormal findings on diagnostic imaging of other abdominal regions, including retroperitoneum; R91.8 Other nonspecific abnormal finding of lung field
CPT/HCPCS: 78815; A9552

== ENCOUNTER 2020-05-25 15:49 | Outpatient (RCR) | payer MEDICARE, OTHER, SELFPAY | END 2020-05-25 23:59 | LOC: IMMUN 15:49 | PROVIDERS: PCP Internal Medicine; Referring Provider Family Medicine; Visit Provider Family Medicine | DX: Z23 Encounter for immunization (principal) | CPT/HCPCS: 0011A; 0012A ==

== ENCOUNTER → 2020-06-12 13:51 | Outpatient (CLI) | payer MEDICARE, OTHER, SELFPAY ==
--- NOTE | 2020-06-12 14:00 | PET_ITS ---
EXAMINATION: FDG PET/CT INDICATIONS: An 79-year-old female with reported history of colorectal carcinoma presenting for restaging examination. COMPARISON EXAMINATION: FDG PET study dated 02/20/20 INDEX LESION SIZE SUV INTERPRETATION PERSISTENT: right upper abdomen, anastomotic site-postsurgical change 39.38-mm (frame 127) comp. to 39.4-mm (02/20/20) 4.1 comp. to 7.1 (02/20/20) May necessitate histopathologic investigation, most consistent with normal postoperative change PREVIOUS: left lobe hepatic parenchyma Demonstrates metabolic resolution on the current examination TECHNIQUE: Following the intravenous administration of 13.38 mCi of F-18 deoxyglucose via the right antecubital fossa, multiplanar image acquisitions of the neck, chest, abdomen and pelvis to level of mid thigh, obtained at one hour post radiopharmaceutical administration contemporaneously interpreted with the current CT of the neck, chest, abdomen and pelvis to level of mid thigh, dated 06/12/20 via coregistration and previous FDG PET study dated 02/20/20 reveal: SERUM GLUCOSE LEVEL: 81 mg/dl. HEIGHT: 62 inches. WEIGHT: 126 lbs. FINDINGS: 1. Increased glucose metabolism remains apparent in the right upper abdomen at the surgical-anastomotic site, heterogeneous in presentation, generating a current calculated maximal standard uptake value of 4.1, compared to 7.1 (standardized-corrected) on the examination dated 02/20/20. The maximal axial diameter of the corresponding metabolic abnormality on the current examination is 39.3-mm (transverse). 2. Normal physiologic distribution of the radiopharmaceutical is apparent in the hepatic (3.2/1.9) and splenic parenchyma, both renal units, bladder and visualized intestinal tract. The visualized portion of the cerebral cortex demonstrate symmetric and preserved glucose metabolism. Diffuse radiopharmaceutical concentration is noted in all four quadrants of the abdomen and pelvis. The previously identified left lobe hepatic parenchymal hypermetabolic focus noted on the FDG PET study dated 02/20/20 is not apparent on the current examination. Enhanced tracer uptake remains evident in the left and right lobe of the u-shaped thyroid gland, unchanged from the examination dated 02/20/20. Previously defined morphologic-anatomic changes noted on review of CT of the neck, chest, abdomen and pelvis on the FDG PET-CT report dated 02/20/20, are essentially unchanged on the current examination. PET/PET/CT Tumor Base -Thigh Subs IMPRESSION: 1. The increase in glucose metabolism redefined in the right upper abdomen at the anastomotic site likely represents postsurgical change. If neoplasia is a diagnostic consideration, histopathologic sampling is recommended. 2. There is interim resolution of the prior defined left lobe hepatic parenchymal hypermetabolic abnormality. 3. Enhanced tracer uptake heterogeneously defined in the left and right lobe of the thyroid colloid may be further investigated with thyroid ultrasound if clinically indicated. 4. Overall, compared to the prior FDG PET study dated 02/20/20, there is interim resolution of the previously identified left lobe hepatic parenchymal hypermetabolic focus. Persistent increased tracer uptake noted in the region of the anastomotic site, postsurgical change may warrant histopathologic investigation if neoplasia is a diagnostic consideration. Electronic Signature Parminder Issa D.O. Accurate Quantification of SUVs for this report are calculated using the exclusive [employer] Technology.??Exclusive [place] Patent [employer]? Technology ([place]. Patent No. [id number]). Electronically Signed: Parminder Issa DO at 21:36 EST Tel , Service support ,
== END ==
PROVIDERS: PCP Internal Medicine; Referring Provider Nurse Practitioner; Visit Provider Nurse Practitioner
DX: C18.0 Malignant neoplasm of cecum (principal); R97.0 Elevated carcinoembryonic antigen [CEA]; R93.5 Abnormal findings on diagnostic imaging of other abdominal regions, including retroperitoneum
CPT/HCPCS: 78815; A9552

== ENCOUNTER 2021-01-20 08:21 | Inpatient (IN) | payer MEDICARE, OTHER, SELFPAY ==
[2021-01-20] VITALS (7 sets, daily range): BP systolic 138–180; BP diastolic 61–81; PULSE 56–78; RESP 14–22; TEMP 36.2–37.2; O2SAT 93–97; BMI 23.0
--- NOTE | 2021-01-20 08:43 | CT_ITS ---
STUDY: CT ABDOMEN AND PELVIS WITH CONTRAST REASON FOR EXAM: Female, 80 years old. Abdominal pain -- IV PO Contrast. Additional history derived from prior study is that of colorectal cancer. RADIATION DOSAGE (If Supplied By Facility): CTDIvol = ( 13.79 ) mGy, DLP = ( 590.01 ) mGycm TECHNIQUE: Transaxial images were obtained from the dome of the diaphragm to the symphysis pubis without oral contrast. Oral and amp; IV Gastrografin and amp; 100mL Isovue-300 was administered. Sagittal and coronal images were reconstructed. Individualized dose optimization techniques were used for this CT. COMPARISON: PET/CT 06/12/2020 FINDINGS: There is hypoventilatory change at the right lung base likely related to nonspecific elevation of the right hemidiaphragm. There also appears a small left-sided Bochdalek hernia. No pulmonary nodule. No pleural effusion. The visualized portions of the heart are within normal limits. Normal liver. No mass there is a faint gallstone in the neck of the gallbladder measuring approximately 1.7 cm. The gallbladder is mildly distended. There does appear pericholecystic fluid without ascites elsewhere, clinical correlation recommended. This may represent cholecystitis. Gallbladder length is approximately 10.3 cm and gallbladder with is approximately 2.9 cm. Normal spleen. There is diffuse atrophy of the pancreas. Normal bilateral adrenal glands. Normal right kidney. Small cortical cyst of the lateral right kidney noted Normal left kidney. There is a small hiatal hernia. Normal small intestine. Surgical anastomotic clips are seen in association with the right colon. No evidence of a recurrent mass. No evidence of obstruction. There are scattered diverticula. There is decompression of the sigmoid colon distally, consider colitis of the sigmoid colon. Moderate stools present in the rectal vault.: There is non-visualization of the appendix. Mild atherosclerosis of the aorta noted. No aneurysm. Normal inferior vena cava. Normal retroperitoneum. Normal urinary bladder. Normal abdominal wall. There is a mild broad curvature of the number spine convex left. There is subtle chronic appearing superior endplate compression of L2. CT/Abdomen/Pelvis WITH Contrast IMPRESSION: * Abnormal appearance of the gallbladder. There appears cholelithiasis and a small amount of pericholecystic fluid as well as gallbladder distention. Clinical correlation recommended. Ultrasound correlation may also be helpful. Consider cholecystitis. * There is bowel wall thickening of the sigmoid colon which may represent a mild distal sigmoid colitis. There are diverticula without evidence of diverticulitis. * I do not see evidence of recurrent tumor. Electronically Signed: Alivia Hanks MD at 11:31 EDT , Service support ,
--- NOTE | 2021-01-20 08:45 | ED.VIS.GI ---
HPI HPI - GI History of Present Illness Chief Complaint: Flank Pain Informant: patient Abdominal Pain/Flank Pain Onset: Yesterday Context: Gradual Onset Timing: Continuous Quality: Sharp and Stabbing Location: RUQ and Right Flank Worsened by: Nothing Relieved by: Nothing Nausea/Vomiting/Emesis GI Symptom: Negative for Nausea and Vomiting Diarrhea/Melena/Hematochezia GI Symptom: Negative for Diarrhea, Melena and Hematochezia Associated Symptoms Associated Symptoms: Negative for Dysuria, Frequency and Hematuria Narrative Narrative: Patient presents with right upper quadrant abdominal pain that radiates to her right shoulder and right flank. Patient states his began last night. Patient states it has been constant. Patient describes it as sharp and stabbing. Patient states nothing makes it worse and nothing makes it better. Patient denies any nausea or vomiting. Patient denies any diarrhea, melena, or hematochezia. Patient denies any dysuria or hematuria. Patient denies any fevers or chills. [facility] History (Updated 01/20/21 @ 16:[address] Blanco Mcleod, ) Anemia Anxiety and depression Bilateral carotid artery stenosis Carotid bruit Chronic cough Chronic depression Diverticulosis Essential (primary) hypertension Fatty liver Gastric ulcer Hx of hepatitis C Hypothyroidism Insomnia Kidney stones Malignant neoplasm of ascending colon Osteoarthritis Osteopenia Palpitations Peptic ulcer disease Home Medications levothyroxine 50 mcg PO DAILY 03/02/17 [History Last Taken 05/05/17 08:00] folic acid 1 mg PO DAILY 05/04/17 [History Last Taken Unknown] metoprolol tartrate 25 mg tablet 25 mg PO BID #180 tab 08/25/17 [Rx Last Taken Unknown] loperamide 2 mg capsule 2 mg PO Q1-4H PRN 02/26/18 [History Last Taken Unknown] acetaminophen 500 mg capsule 500 mg PO Q6H PRN 03/16/19 [History Last Taken Unknown] lorazepam 0.5 mg tablet 0.5 mg PO Q6H PRN #120 tab 03/16/19 [History Last Taken Unknown] paroxetine HCl 20 mg tablet 20 mg PO DAILY 03/16/19 [History Last Taken Unknown] famotidine 20 mg tablet 20 mg PO DAILY 03/29/19 [History Last Taken Unknown] zolpidem [Ambien CR] 10 mg PO QHS 11/09/19 [History Last Taken Unknown] losartan 50 mg tablet 50 mg PO DAILY #30 tab 03/05/20 [Rx Last Taken Unknown] Refresh Dry Eye Therapy 1 drp EACH EYE BID 01/20/21 [History Last Taken Unknown] Allergy/AdvReac Type Severity Reaction Status Date / Time adhesive Allergy Rash Verified 11/09/19 14:14 butorphanol [From Stadol] AdvReac unknown Verified 11/09/19 14:14 chlordiazepoxide AdvReac Unknown Verified 11/09/19 14:14 [From Librium] hydrochlorothiazide AdvReac syncope Verified 11/09/19 14:14 metoprolol [From Toprol XL] AdvReac Blurred Verified 01/20/21 16:05 Vision Family History Mother Parkinsons CVA (cerebral vascular accident) Pancreatic cancer Father COPD (chronic obstructive pulmonary disease) Brother CAD (coronary artery disease) Meningitis Family history of polio Surgical History (Updated 01/20/21 @ 14:[address] Courtney Bui MD) H/O colectomy (04/2017) History of esophagogastroduodenoscopy (EGD) History of facial surgery History of hysterectomy Hx of eye surgery Social History (Updated 01/20/21 @ 14:[address] Courtney Bui MD) household members: spouse Smoking Status: Never smoker second hand exposure: No alcohol intake: never substance use type: does not use caffeine: Yes what type of physical activity do you participate in: none frequency: does not exercise seatbelt use: always ROS ROS ED Constitutional Constitutional ED: Denies chills or fever(s) Eyes Eyes: Denies blurry vision or change in vision ENT ENT ED: Denies rhinorrhea or sore throat Cardiovascular Cardiovascular: Reports chest pain; Denies palpitations Respiratory/Chest Respiratory/Chest: Denies cough or dyspnea Gastrointestinal Gastrointestinal: Reports abdominal pain; Denies diarrhea, melena, nausea or vomiting Genitourinary Genitourinary ED: Denies dysuria or hematuria Musculoskeletal Musculoskeletal: Reports back pain; Denies neck pain Integumentary Denies abscess or rash Neurologic Neurologic: Denies headache(s) or weakness Allergic/Immunologic Allergic/Immunologic ED: Denies mouth swelling or urticaria EXAM Physical Exam Const Vital Signs: 01/20/21 08:22 01/20/21 08:40 01/20/21 11:43 Temperature 97.2 F L Temperature Source Temporal Pulse Rate 56 L 56 L Respiratory Rate 14 Respiratory Effort Normal Non-Labored Respiratory Pattern Normal Blood Pressure 174/72 H 174/75 H Blood Pressure Mean 106 108 Pulse Ox 97 93 Oxygen Delivery Method Room Air Room Air 01/20/21 13:49 Temperature Temperature Source Pulse Rate 60 Respiratory Rate 22 H Respiratory Effort Respiratory Pattern Blood Pressure 179/81 H Blood Pressure Mean 113 Pulse Ox 96 Oxygen Delivery Method Room Air Positive well nourished and well developed General Appearance ED: well developed HEENT Reports moist mucous membranes Neck supple and no JVD Resp normal respiratory effort and clear to auscultation bilaterally Cardio regular rate, regular rhythm and no murmurs GI normal to inspection, nondistended, normoactive bowel sounds Palpation: soft and tender RUQ and Jean's sign; Negative for guarding or rebound tenderness present Extremity normal to inspection General Extremety ED: Negative for edema or tenderness General Extremity: Negative for edema Neuro oriented x3, CN's II-XII intact bilaterally, moves all extremities and no sensory deficits noted Sensorium / Orientation: alert Motor Exam: strength 5/5 throughout Psych mental status grossly normal Skin no rashes or lesions noted MDM MDM MDM Narrative Medical decision making narrative: Patient was given morphine and Zofran here. CBC shows a mild leukocytosis of 11.7. Comprehensive metabolic profile was essentially within normal limits. Urinalysis does not show any evidence of urinary tract infection. CT scan of the abdomen pelvis was obtained. There is cholelithiasis with small amount of pericholecystic fluid. There is a stone in the neck of the gallbladder. There is wall thickening of the sigmoid colon. There is no other acute abnormality. This was interpreted by the radiologist and reviewed by myself. Case was discussed with Dr. Brown, general surgeon personal finance instructor. He recommended admitting the patient to the medical service and getting a Juliet tube placed. Case was discussed with the hospitalist. She will admit the patient to her service. Patient was given a dose of Zosyn here. Patient understood and was agreeable with the plan. All questions were answered. Lab Data Attestation: I reviewed the patient's lab results. Labs: Laboratory Results - last 24 hr 01/20/21 01/20/21 01/20/21 08:40 08:40 08:55 WBC 11.7 H RBC 4.98 Hgb 15.4 H Hct 47.5 H MCV 95.4 MCH 30.9 MCHC 32.4 RDW Std Deviation 47.4 H RDW Coeff of Genoveva 13.5 Plt Count 263 MPV 10.0 Immature Gran % (Auto) 0.500 Neut % (Auto) 79.9 H Lymph % (Auto) 13.8 L Ness % (Auto) 4.3 Eos % (Auto) 0.9 Baso % (Auto) 0.6 Absolute Neuts (auto) 9.4 H Absolute Lymphs (auto) 1.62 Nucleated RBC % 0 Sodium 134 L Potassium 3.6 Chloride 102 Carbon Dioxide 25.0 Anion Gap 7 BUN 9 Creatinine 0.66 Estim Creat Clear Calc 34.90 Est GFR (MDRD) Af Amer 110 Est GFR (MDRD) Non-Af 91 BUN/Creatinine Ratio 13.6 Glucose 137 H Calcium 8.2 L Total Bilirubin 0.50 AST 15 ALT 21 Alkaline Phosphatase 106 Total Protein 7.0 Albumin 3.1 L Globulin 3.9 Albumin/Globulin Ratio 0.8 L Lipase 50 L Urine Color Yellow Urine Clarity Sl. Cloudy Urine pH 6.5 Ur Specific [place] 1.015 Urine Protein 15 H Urine Glucose (UA) Normal Urine Ketones Negative Urine Occult Blood 10 H Urine Nitrite Negative Urine Bilirubin Negative Urine Urobilinogen Normal Ur Leukocyte Esterase 100 H Urine RBC 0 SEEN Urine WBC 0-5 SEEN Ur Squamous Epith Cells 0-5 SEEN Urine Bacteria RARE Urine Mucus 0 SEEN Radiography Diagnostic Testing: Clinical Impression(s) from Imaging Studies Abdomen/Pelvis CT 01/20/21 08:43 IMPRESSION: * Abnormal appearance of the gallbladder. There appears cholelithiasis and a small amount of pericholecystic fluid as well as gallbladder distention. Clinical correlation recommended. Ultrasound correlation may also be helpful. Consider cholecystitis. * There is bowel wall thickening of the sigmoid colon which may represent a mild distal sigmoid colitis. There are diverticula without evidence of diverticulitis. * I do not see evidence of recurrent tumor. Electronically Signed: Alivia Hanks MD at 11:31 EDT , Service support , Discharge Plan Dx/Rx/DC Orders Clinical Impression: Acute cholecystitis Disposition Disposition: Acute Care Hospital [facility] Discharge Date/Time: 01/20/21 15:21
[2021-01-20 08:50] LABS: Absolute Lymphocyte Count 1.62 X10^3/uL (0.83-4.51); Absolute Neutrophil Count 9.4 X10^3/uL (2.0-7.7); Basophil# 0.07 X10^3/uL; Basophil% 0.6 % (0-1); Eosinophils% 0.9 % (0-5); Hematocrit 47.5 % (37-47); Hemoglobin 15.4 g/dL (12.0-15.0); Lymphocyte # 1.62 X10^3/ul (0.83-4.51); Lymphocyte % 13.8 % (19-41); Mean Corp Hgb Conc 32.4 g/dL (32-36); Mean Corpuscular Hgb 30.9 pg (27.0-32.0); Mean Corpuscular Volume 95.4 fL (81-99); Monocyte% 4.3 % (0-10); NRBC Flagged by Analyzer 0 % (0-5); Neutrophil # 9.35 X10^3/uL (2.7-7.7); Neutrophil % 79.9 % (47-70); Platelet Count 263 K/mm3 (150-450); RBC Distribution Width CV 13.5 % (11.6-14.6); RBC Distribution Width SD 47.4 fl (35.1-43.9); Red Blood Count 4.98 M/mm3 (4.2-5.4); White Blood Count 11.7 K/mm3 (4.4-11.0)
[2021-01-20] MEDS: Morphine 4 MG/ML Syringe IV ×6 (09:04→23:20)
[2021-01-20] MEDS: Ondansetron 4 MG/2 ML Vial IV (09:04)
[2021-01-20] MEDS: 0.9% Normal Saline 1,000 ML 1000 ML IV (09:07)
[2021-01-20 09:10] LABS: ALB/GLOB Ratio 0.8 RATIO (0.9-2.4); AST(SGOT) 15 U/L (15-37); Alanine Aminotransfer ALT/SGPT 21 U/L (13-56); Albumin, Serum 3.1 g/dL (3.2-5.0); Alkaline Phosphatase 106 U/L (45-117); Anion Gap 7 (5-15); BUN 9 mg/dL (7-18); BUN/Creat Ratio 13.6 RATIO (10-20); Calcium,Total 8.2 mg/dL (8.5-10.1); Chloride 102 mmol/L (98-107); Creatinine, Serum 0.66 mg/dL (0.55-1.02); EST Glomerular Filtration Rate 91 mL/min (>60); Est Glom Filt Rate - Afr Amer 110 mL/min (>60); Globulin 3.9 g/dL (2.2-4.2); Glucose 137 mg/dL (74-106); Lipase 50 U/L (73-393); Potassium 3.6 mmol/L (3.5-5.1); Sodium Level 134 mmol/L (136-145)
[2021-01-20 09:38] LABS: Mucous, Urine 0 SEEN /hpf (<or=2+); Red Blood Cells-Urine 0 SEEN /hpf (0-5)
[2021-01-20 09:39] LABS: Color, Urine Yellow (Yellow); Glucose, Dipstick Normal (Normal); Ketone-Dipstick Negative (Negative); Leukocyte Esterase-Dipstick 100 /ul (Negative); Nitrite-Dipstick Negative (Negative); Occult Blood-Urine 10 /ul (Negative); Protein-Dipstick 15 mg/dl (Negative); Specific Gravity, Urine 1.015 (1.002-1.030); Urine Bilirubin Dipstick Negative (Negative); Urine Clarity Sl. Cloudy (Clear); Urine Urobilinogen Normal (Normal); Urine pH 6.5 (5.0 - 8.0)
[2021-01-20 10:01] LABS: Bacteria RARE /hpf (None Seen); Squamous Epithelial Cells - UA 0-5 SEEN /hpf (5-10); White Blood Cells 0-5 SEEN /hpf (0-5)
--- NOTE | 2021-01-20 13:53 | EX.PCM.CON.S ---
Assessment & Plan Assessment/Plan (1) Acute cholecystitis: PLAN: This is a frail 80-year-old female with complex past medical and past surgical histories who presents with acute cholecystitis. Given her frailty, coupled with her extensive surgical history, I find her at a prohibitive operative risk for cholecystectomy. I advised her that she would be at high risk for open cholecystectomy given her history of 8 prior laparotomies, including a right hemicolectomy, and radiation to her right upper quadrant. She tells me that she was not recommended adjuvant chemotherapy after her colectomy for a cecal cancer because she was felt to be too weak to endure it. Based on this information and further conversations with both patient and her , I recommend we pursue placement of a cholecystostomy tube by radiology. There appears to be a clear window from a rightward approach. Recommend patient be maintained on IV antibiotic therapy in the periprocedural window. HPI Consult Data Date of Consult: 01/20/21 HPI Narrative HPI Narrative: WALLACE BURDEN, is a 80 F with a complex medical and surgical history who presents with acute-onset right upper quadrant pain beginning approximately 2 AM this morning. She states that the pain was so severe she could not get comfortable and ended up waking her . It was not associated with nausea or vomiting but did radiate to her back. This is her first experience with pain this intense, however, she believes she may have had a prior episode in this area before. Her ER work-up is notable for a CBC demonstrating a leukocytosis of 11.[address] imaging consistent with probable cholecystitis given a stented gallbladder, pericholecystic fluid, and a large gallstone impacted in the gallbladder neck. Mrs. Burden relates some of her past medical and surgical history. She states that she has been diagnosed with metastatic colon cancer after undergoing a right hemicolectomy 4 years ago. Postoperatively she was considered for chemotherapy but deemed too weak to undergo this adjuvant treatment and therefore underwent radiation alone. Radiation was directed at several hepatic metastases and she initially had a good response, however, she reports that new spot showed up on her most recent PET imaging and have not been treated. 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 [facility] Medical History (Updated 01/20/21 @ 14:[address] Courtney Bui MD) Anemia Anxiety and depression Bilateral carotid artery stenosis Carotid bruit Chronic cough Chronic depression Diverticulosis Essential (primary) hypertension Fatty liver Gastric ulcer Hx of hepatitis C Hypothyroidism Insomnia Kidney stones Malignant neoplasm of ascending colon Osteoarthritis Osteopenia Palpitations Peptic ulcer disease Home Medications levothyroxine 50 mcg PO DAILY 03/02/17 [History Last Taken 05/05/17 08:00] folic acid 1 mg PO DAILY 05/04/17 [History Last Taken Unknown] metoprolol tartrate 25 mg tablet 25 mg PO BID #180 tab 08/25/17 [Rx Last Taken Unknown] loperamide 2 mg capsule 2 mg PO Q1-4H PRN 02/26/18 [History Last Taken Unknown] acetaminophen 500 mg capsule 500 mg PO Q6H PRN 03/16/19 [History Last Taken Unknown] lorazepam 0.5 mg tablet 0.5 mg PO Q6H PRN #120 tab 03/16/19 [History Last Taken Unknown] paroxetine HCl 20 mg tablet 20 mg PO DAILY 03/16/19 [History Last Taken Unknown] famotidine 20 mg tablet 20 mg PO DAILY 03/29/19 [History Last Taken Unknown] zolpidem [Ambien CR] 10 mg PO QHS 11/09/19 [History Last Taken Unknown] losartan 50 mg tablet 50 mg PO DAILY #30 tab 03/05/20 [Rx Last Taken Unknown] Refresh Dry Eye Therapy 1 drp EACH EYE BID 01/20/21 [History Last Taken Unknown] Allergy/AdvReac Type Severity Reaction Status Date / Time adhesive Allergy Rash Verified 11/09/19 14:14 butorphanol [From Stadol] AdvReac unknown Verified 11/09/19 14:14 chlordiazepoxide AdvReac Unknown Verified 11/09/19 14:14 [From Librium] hydrochlorothiazide AdvReac syncope Verified 11/09/19 14:14 toprol AdvReac blurred Uncoded 11/09/19 14:14 vision Family History Mother Parkinsons CVA (cerebral vascular accident) Pancreatic cancer Father COPD (chronic obstructive pulmonary disease) Brother CAD (coronary artery disease) Meningitis Family history of polio Surgical History (Updated 01/20/21 @ 14:[address] Courtney Bui MD) H/O colectomy (04/2017) History of esophagogastroduodenoscopy (EGD) History of facial surgery History of hysterectomy Hx of eye surgery Social History (Updated 01/20/21 @ 14:[address] Courtney Bui MD) household members: spouse Smoking Status: Never smoker second hand exposure: No alcohol intake: never substance use type: does not use caffeine: Yes what type of physical activity do you participate in: none frequency: does not exercise seatbelt use: always Physical Exam Const alert and oriented x3 Constitutional Narrative: In mild distress from her abdominal pains General Appearance: cooperative Resp normal respiratory effort GI GI Narrative: Patient with well-healed midline laparotomy incision extending from just above the umbilicus down to the pubis. She does not appear to have a hernia along this incision line nor other scars. She has no abdominal distention but is focally tender in the right upper quadrant with a positive Jean sign. Lab / Micro Data Result Diagrams: 01/20/21 08:40 01/20/21 08:40 Labs: Laboratory Results - last 24 hr 01/20/21 08:40: WBC 11.7 H, RBC 4.98, Hgb 15.4 H, Hct 47.5 H, MCV 95.4, MCH 30.9, MCHC 32.4, RDW Std Deviation 47.4 H, RDW Coeff of Genoveva 13.5, Plt Count 263, MPV 10.0, Immature Gran % (Auto) 0.500, Neut % (Auto) 79.9 H, Lymph % (Auto) 13.8 L, [place] % (Auto) 4.3, Eos % (Auto) 0.9, Baso % (Auto) 0.6, Absolute Neuts (auto) 9.4 H, Absolute Lymphs (auto) 1.62, Nucleated RBC % 0 01/20/21 08:40: Sodium 134 L, Potassium 3.6, Chloride 102, Carbon Dioxide 25.0, Anion Gap 7, BUN 9, Creatinine 0.66, Estim Creat Clear Calc 34.90, Est GFR (MDRD) Af Amer 110, Est GFR (MDRD) Non-Af 91, BUN/Creatinine Ratio 13.6, Glucose 137 H, Calcium 8.2 L, Total Bilirubin 0.50, AST 15, ALT 21, Alkaline Phosphatase 106, Total Protein 7.0, Albumin 3.1 L, Globulin 3.9, Albumin/Globulin Ratio 0.8 L, Lipase 50 L 01/20/21 08:55: Urine Color Yellow, Urine Clarity Sl. Cloudy, Urine pH 6.5, Ur Specific [place] 1.015, Urine Protein 15 H, Urine Glucose (UA) Normal, Urine Ketones Negative, Urine Occult Blood 10 H, Urine Nitrite Negative, Urine Bilirubin Negative, Urine Urobilinogen Normal, Ur Leukocyte Esterase 100 H, Urine RBC 0 SEEN, Urine WBC 0-5 SEEN, Ur Squamous Epith Cells 0-5 SEEN, Urine Bacteria RARE, Urine Mucus 0 SEEN Radiology Impression Abdomen/Pelvis CT 01/20/21 08:43 IMPRESSION: * Abnormal appearance of the gallbladder. There appears cholelithiasis and a small amount of pericholecystic fluid as well as gallbladder distention. Clinical correlation recommended. Ultrasound correlation may also be helpful. Consider cholecystitis. * There is bowel wall thickening of the sigmoid colon which may represent a mild distal sigmoid colitis. There are diverticula without evidence of diverticulitis. * I do not see evidence of recurrent tumor. Electronically Signed: Alivia Hanks MD at 11:31 EDT , Service support ,
--- NOTE | 2021-01-20 14:14 | PCM.HP.STD ---
HPI - General General Date of Admission: 01/20/21 Date of Service: 01/20/21 Chief Complaint: RUQ pain HPI Narrative The patient is an 80 y/o F w/ PMHx: Chronic anemia, Hypothyroidism, GERD w/ Hx PUD, HTN, HLD, Depression and Anxiety, Hx Hepatitis C, Hx Colon CA s/p colectomy in addition to Liver Cancer who presents to the [facility] ED on 01/20/21 with history of continuous sharp and stabbing right upper quadrant and right flank pain with associated radiation to the right shoulder beginning the evening prior and ongoing with no improvement with any interventions without any specific nausea or emesis nor any diarrhea associated nor any fevers or chills but given not alleviated prompted ED evaluation. In the ED she notes her pain is more aching, severe and rates it 01/20 requesting more pain medications. Work-up in the ED included T 97.2, heart rate ranging 56-60, BP 174/72, respiratory rate 14-22, 97% on room air, CBC with WBC 11.7, hemoglobin 15.4, platelet 263 with left shift, CMP with sodium 134, glucose 137, unremarkable hepatic profile, lipase 50, CT abdomen and pelvis with an abnormal appearing gallbladder, appearance cholelithiasis with a small amount of pericholecystic fluid as well as gallbladder distention possibly cholecystitis with bowel wall thickening of the sigmoid colon possibly mild distal sigmoid colitis, diverticular without any evidence of diverticulitis with no obvious evidence of a recurrent tumor per radiology read. In the ED patient ministered normal saline, Zofran, morphine 4 mg IV x2 as well as IV zosyn. [facility] Medical History (Updated 01/20/21 @ 14:[address] Courtney Bui MD) Anemia Anxiety and depression Bilateral carotid artery stenosis Carotid bruit Chronic cough Chronic depression Diverticulosis Essential (primary) hypertension Fatty liver Gastric ulcer Hx of hepatitis C Hypothyroidism Insomnia Kidney stones Malignant neoplasm of ascending colon Osteoarthritis Osteopenia Palpitations Peptic ulcer disease Home Medications levothyroxine 50 mcg PO DAILY 03/02/17 [History Last Taken 05/05/17 08:00] folic acid 1 mg PO DAILY 05/04/17 [History Last Taken Unknown] metoprolol tartrate 25 mg tablet 25 mg PO BID #180 tab 08/25/17 [Rx Last Taken Unknown] loperamide 2 mg capsule 2 mg PO Q1-4H PRN 02/26/18 [History Last Taken Unknown] acetaminophen 500 mg capsule 500 mg PO Q6H PRN 03/16/19 [History Last Taken Unknown] lorazepam 0.5 mg tablet 0.5 mg PO Q6H PRN #120 tab 03/16/19 [History Last Taken Unknown] paroxetine HCl 20 mg tablet 20 mg PO DAILY 03/16/19 [History Last Taken Unknown] famotidine 20 mg tablet 20 mg PO DAILY 03/29/19 [History Last Taken Unknown] zolpidem [Ambien CR] 10 mg PO QHS 11/09/19 [History Last Taken Unknown] losartan 50 mg tablet 50 mg PO DAILY #30 tab 03/05/20 [Rx Last Taken Unknown] Refresh Dry Eye Therapy 1 drp EACH EYE BID 01/20/21 [History Last Taken Unknown] Allergy/AdvReac Type Severity Reaction Status Date / Time adhesive Allergy Rash Verified 11/09/19 14:14 butorphanol [From Stadol] AdvReac unknown Verified 11/09/19 14:14 chlordiazepoxide AdvReac Unknown Verified 11/09/19 14:14 [From Librium] hydrochlorothiazide AdvReac syncope Verified 11/09/19 14:14 toprol AdvReac blurred Uncoded 11/09/19 14:14 vision Family History Mother Parkinsons CVA (cerebral vascular accident) Pancreatic cancer Father COPD (chronic obstructive pulmonary disease) Brother CAD (coronary artery disease) Meningitis Family history of polio Surgical History (Updated 01/20/21 @ 14:[address] Courtney Bui MD) H/O colectomy (04/2017) History of esophagogastroduodenoscopy (EGD) History of facial surgery History of hysterectomy Hx of eye surgery Social History (Updated 01/20/21 @ 14:[address] Courtney Bui MD) household members: spouse Smoking Status: Never smoker second hand exposure: No alcohol intake: never substance use type: does not use caffeine: Yes what type of physical activity do you participate in: none frequency: does not exercise seatbelt use: always ROS ROS Narrative Admission Review of Systems: CONSTITUTIONAL: No weight loss, fever, chills, + weakness or fatigue. HEENT: Eyes: No visual loss, blurred vision, double vision or yellow sclerae. Ears, Nose, Throat: No hearing loss, sneezing, congestion, runny nose or sore throat. SKIN: No rash or itching, lesions, wounds. CARDIOVASCULAR: No chest pain, chest pressure or chest discomfort, palpitations, edema, orthopnea, syncopal events. RESPIRATORY: No shortness of breath, cough or sputum, wheezing, hemoptysis. GASTROINTESTINAL: + anorexia, abdominal pain, chronic diarrhea, No nausea, vomiting, melena, BRBPR. GENITOURINARY: No dysuria, frequency, urgency or retention. NEUROLOGICAL: No headache, dizziness, syncope, paralysis, ataxia, numbness or tingling in the extremities, focal weakness, change in bowel or bladder control, seizure. MUSCULOSKELETAL: + muscle, back pain, joint pain or stiffness. HEMATOLOGIC: No anemia, bleeding or bruising. LYMPHATICS: No enlarged nodes. No history of splenectomy. PSYCHIATRIC: + history of depression or anxiety. ENDOCRINOLOGIC: No reports of sweating, cold or heat intolerance. No polyuria or polydipsia. ALLERGIES: No history of asthma, hives, eczema or rhinitis. Vital Signs Vital Signs Vital Signs: 01/20/21 08:22 01/20/21 08:40 01/20/21 11:43 Temperature 97.2 F L Temperature Source Temporal Pulse Rate 56 L 56 L Respiratory Rate 14 Respiratory Effort Normal Non-Labored Respiratory Pattern Normal Blood Pressure 174/72 H 174/75 H Blood Pressure Mean 106 108 Pulse Ox 97 93 Oxygen Delivery Method Room Air Room Air 01/20/21 13:49 Temperature Temperature Source Pulse Rate 60 Respiratory Rate 22 H Respiratory Effort Respiratory Pattern Blood Pressure 179/81 H Blood Pressure Mean 113 Pulse Ox 96 Oxygen Delivery Method Room Air Weight Weight: 126 lb Body Mass Index (BMI) 23.0 Physical Exam Narrative Physical Examination: General: Awake, alert, oriented x 3 and cooperative, laying in the ED bed, notes ongoing pain, 10 out of 10. Skin: Normal color, normal turgor, no icterus, no cyanosis. HEENT: AT/NC, L EOMI, false R eye present, moderately dry MM, no carotid bruits or JVD noted. Lungs: CTA bilaterally, moderate effort, mild decrease BL bases, no rales, ronchi or wheezing. Heart: Regular rate and rhythm; no gallop, rub audible. Abdomen: Soft, discomfort to RUQ palpation but no rebound or guarding noted especially with distraction, no obvious distention, hypoactive BS, no obvious HSM. Extremities: No cyanosis, clubbing, or edema. Neurological: Patient awake, alert, oriented as noted, cognitive function intact; pupils equally reactive to light and accommodation, cranial nerves grossly normal except noted false R eye present s/p facial trauma with reconstructive surgery, moving all 4 extremities, no focal deficits, strength moderately to severely globally decreased secondary to acute pain. Psychiatric: Affect appears fatigued, uncomfortable, no acute evidence of depressive or anxiety feelings. Results Lab / Micro Data Result Diagrams: 01/20/21 08:40 01/20/21 08:40 Labs: Laboratory Results - last 24 hr 01/20/21 08:40: WBC 11.7 H, RBC 4.98, Hgb 15.4 H, Hct 47.5 H, MCV 95.4, MCH 30.9, MCHC 32.4, RDW Std Deviation 47.4 H, RDW Coeff of Genoveva 13.5, Plt Count 263, MPV 10.0, Immature Gran % (Auto) 0.500, Neut % (Auto) 79.9 H, Lymph % (Auto) 13.8 L, [place] % (Auto) 4.3, Eos % (Auto) 0.9, Baso % (Auto) 0.6, Absolute Neuts (auto) 9.4 H, Absolute Lymphs (auto) 1.62, Nucleated RBC % 0 01/20/21 08:40: Sodium 134 L, Potassium 3.6, Chloride 102, Carbon Dioxide 25.0, Anion Gap 7, BUN 9, Creatinine 0.66, Estim Creat Clear Calc 34.90, Est GFR (MDRD) Af Amer 110, Est GFR (MDRD) Non-Af 91, BUN/Creatinine Ratio 13.6, Glucose 137 H, Calcium 8.2 L, Total Bilirubin 0.50, AST 15, ALT 21, Alkaline Phosphatase 106, Total Protein 7.0, Albumin 3.1 L, Globulin 3.9, Albumin/Globulin Ratio 0.8 L, Lipase 50 L 01/20/21 08:55: Urine Color Yellow, Urine Clarity Sl. Cloudy, Urine pH 6.5, Ur Specific Aroda 1.015, Urine Protein 15 H, Urine Glucose (UA) Normal, Urine Ketones Negative, Urine Occult Blood 10 H, Urine Nitrite Negative, Urine Bilirubin Negative, Urine Urobilinogen Normal, Ur Leukocyte Esterase 100 H, Urine RBC 0 SEEN, Urine WBC 0-5 SEEN, Ur Squamous Epith Cells 0-5 SEEN, Urine Bacteria RARE, Urine Mucus 0 SEEN Radiology Impression Abdomen/Pelvis CT 01/20/21 08:43 IMPRESSION: * Abnormal appearance of the gallbladder. There appears cholelithiasis and a small amount of pericholecystic fluid as well as gallbladder distention. Clinical correlation recommended. Ultrasound correlation may also be helpful. Consider cholecystitis. * There is bowel wall thickening of the sigmoid colon which may represent a mild distal sigmoid colitis. There are diverticula without evidence of diverticulitis. * I do not see evidence of recurrent tumor. Electronically Signed: Alivia Hanks MD at 11:31 EDT , Service support , Assessment & Plan Assessment/Plan (1) Acute cholecystitis: PLAN: The patient is an 80 y/o F w/ PMHx: Chronic anemia, Hypothyroidism, GERD w/ Hx PUD, HTN, HLD, Depression and Anxiety, Hx Hepatitis C, Hx Colon CA s/p colectomy in addition to Liver Cancer who presents to the [facility] ED on 01/20/21 with history of continuous sharp and stabbing right upper quadrant and right flank pain with associated radiation to the right shoulder beginning the evening prior and ongoing with no improvement with any interventions without any specific nausea or emesis nor any diarrhea associated nor any fevers or chills. 1. Acute RUQ Pain w/ concern Acute Cholecystitis: Will admit to MS floor, continue surgery consultation and will defer any intervention considerations including consideration cholecystostomy tube to their service, maintain on IVFs, NPO, continue famotidine, IV/po pain control, will obtain RUQ US to even further be able to elucidate etiology. 2. History of colon cancer as well as liver cancer w/ underlying Hx hepatitis C: Status post colectomy, chronic diarrhea as a result, we will continue patient loperamide regimen as needed if surgery amenable, CT with reported per radiology no obvious evidence of recurrent tumor. 3. Chronic anemia: Admission hemoglobin 15.4, most recent prior to this in 2018 patient baseline 8-10 likely associated with interventions for underlying cancer history, will continue to trend but appears resolved at this point. 4. Hypertension: Continue home regimen including losartan, metoprolol with hold parameters as needed, PRN hydralazine. 5. Hypothyroidism: Continue home synthroid regimen. 6. Anxiety and depression: We will continue patient home as needed Ativan and paroxetine regimen. 7. GERD with history of PUD: We will maintain on home famotidine regimen. 8. DVT prophylaxis: SCDs, hold on chemoprophylaxis pending surgery re-assessment for possible intervention. 9. CODE status: Patient HCPOA is her who is present and living will is currently in place. Discussed CODE status at length including difference between FULL code, DNR-CCA and DNR-CC status. Following discussions about the differences in these status, requested Full Code status. Advanced Care Planning Face to Face Time: 16 minutes. Charges/Coding Visit Charges Inpatient E&M: 65039 Init Hosp L3 Procedures Hospitalists Procedures: 88905 Advncd Care Plan 30 Min
--- NOTE | 2021-01-20 14:20 | US_ITS ---
STUDY: ABDOMINAL ULTRASOUND - RIGHT UPPER QUADRANT REASON FOR VISIT: Female, 80 years old RUQ pain, ? Acute cholecystitis -- scanning at 7:15am TECHNIQUE: Ultrasound evaluation of the right upper quadrant was performed with real-time and static thacker-scale imaging. TECHNICAL QUALITY: Adequate. COMPARISON: None. FINDINGS: Liver: The liver measures 14.6 cm. There is a heterogeneous echogenicity of the liver. The bile ducts are within normal limits. There is hepatic color flow. The direction of portal flow is hepatopetal. There is no demonstrated mass lesion. Gallbladder: There is a distended gallbladder. The gallbladder wall is slightly thickened and measures 3.3 mm. There is a positive sonographic Jean''s sign. There is a small amount of pericholecystic fluid. There is a solitary echogenic gallstone within the gallbladder. The gallstone measures 1.3 cm x 1.6 cm. Common Bile Duct (C.B.D.): The common bile duct measures 5.1 mm. Pancreas: Normal size of the head, body and tail of the pancreas. There is increased echogenicity of the pancreas. There is no demonstrated pancreatic mass or cyst. Right Kidney: Normal size of the right kidney. The right kidney measures 10.3 cm x 4.5 cm x 5.2 cm. Normal renal cortex. The right cortex measures 1.5 cm. There is a 1.7 cm x 1.5 cm x 1 cm renal cyst. There is no right hydronephrosis. US/Gallbladder IMPRESSION: Heterogeneous appearance of the liver. Mildly distended gallbladder with a solitary gallstone and small amount of pericholecystic fluid. Findings are included with acute cholecystitis. Electronically Signed: Juan Carlos Crump MD at 8:54 EDT , Service support ,
[2021-01-20] MEDS: 0.9% Normal Saline 1,000 ML 100 ML IV (16:38)
[2021-01-20] MEDS: oxyCODONE 5 MG Tablet PO (18:43)
[2021-01-20] MEDS: Metoprolol Tartrate 25 MG Tablet PO (20:19)
[2021-01-20] MEDS: Zolpidem Tartrate 5 MG Tablet PO (21:00)
[2021-01-21] VITALS (15 sets, daily range): BP systolic 104–151; BP diastolic 55–74; PULSE 20–84; RESP 14–24; TEMP 36.7–37.2; O2SAT 91–96; BMI 22.3
--- NOTE | 2021-01-21 00:42 | PCS.PANDOC ---
PANDEMIC DOCUMENTATION INITIATED: Date: 11/26/2020 Time: 190 Emergency documentation initiated 01/20/21 @ 1900
[2021-01-21] MEDS: Morphine 4 MG/ML Syringe IV ×5 (02:21→20:36)
[2021-01-21] MEDS: 0.9% Normal Saline 1,000 ML 100 ML IV ×2 (02:26→16:23)
[2021-01-21] MEDS: Levothyroxine 50 MCG Tablet PO (05:37)
[2021-01-21 06:27] LABS: Absolute Lymphocyte Count 1.33 X10^3/uL (0.83-4.51); Absolute Neutrophil Count 17.8 X10^3/uL (2.0-7.7); Basophil# 0.06 X10^3/uL; Basophil% 0.3 % (0-1); Eosinophil# 0.63 X10^3/uL; Eosinophils% 2.9 % (0-5); Hematocrit 45.5 % (37-47); Hemoglobin 15.6 g/dL (12.0-15.0); Lymphocyte # 1.33 X10^3/ul (0.83-4.51); Lymphocyte % 6.1 % (19-41); Mean Corp Hgb Conc 34.3 g/dL (32-36); Mean Corpuscular Hgb 31.4 pg (27.0-32.0); Mean Corpuscular Volume 91.5 fL (81-99); Mean Platelet Vol. 11.1 fl (6.2-12.0); Monocyte# 1.76 X10^3/uL; Monocyte% 8.1 % (0-10); NRBC Flagged by Analyzer 0 % (0-5); Neutrophil # 17.81 X10^3/uL (2.7-7.7); POSITIVE COUNT YES; POSITIVE DIFFERENTIAL YES; POSITIVE MORPHOLOGY YES; Platelet Count 208 K/mm3 (150-450); RBC Distribution Width CV 13.2 % (11.6-14.6); RBC Distribution Width SD 44.9 fl (35.1-43.9); Red Blood Count 4.97 M/mm3 (4.2-5.4); White Blood Count 21.7 K/mm3 (4.4-11.0)
[2021-01-21 06:35] LABS: Differential Indicated SCAN CRITERIA MET
[2021-01-21 06:47] LABS: Atypical Lymphocyte 1+ %
--- NOTE | 2021-01-21 07:20 | NURSING ---
LEAVING UNIT VIA W/C FOR GALLBLADDER US
[2021-01-21 07:58] LABS: International Normalized Ratio 1.3; Prothrombin Time (Protime)PT. 15.3 SECONDS (11.7-14.9)
[2021-01-21 07:59] LABS: Partial Thromboplast Time 31.4 Seconds (24.1-36.2)
[2021-01-21 08:24] LABS: ALB/GLOB Ratio 0.6 RATIO (0.9-2.4); AST(SGOT) 27 U/L (15-37); Alanine Aminotransfer ALT/SGPT 23 U/L (13-56); Albumin, Serum 2.4 g/dL (3.2-5.0); Alkaline Phosphatase 106 U/L (45-117); Anion Gap 8 (5-15); BUN 7 mg/dL (7-18); BUN/Creat Ratio 11.9 RATIO (10-20); Calcium,Total 7.5 mg/dL (8.5-10.1); Chloride 102 mmol/L (98-107); Creatinine, Serum 0.59 mg/dL (0.55-1.02); EST Glomerular Filtration Rate 104 mL/min (>60); Est Glom Filt Rate - Afr Amer 126 mL/min (>60); Globulin 3.8 g/dL (2.2-4.2); Glucose 115 mg/dL (74-106); Potassium 3.6 mmol/L (3.5-5.1); Protein, Total 6.2 g/dL (6.4-8.2); Sodium Level 132 mmol/L (136-145)
--- NOTE | 2021-01-21 09:55 | CT_ITS ---
STUDY: CT GUIDED CHOLECYSTOSTOMY TUBE PLACEMENT. REASON FOR EXAM: Female, 80 years old. Placement of cholecystostomy tube, [facility] RADIATION DOSAGE (If Supplied By Facility): CTDIvol = ( 14.04 ) mGy, DLP = ( 641.19 ) mGycm. Individualized dose optimization techniques were used for this CT.? TECHNIQUE: Multiple axial tomographic images of the abdomen were obtained without intravenous contrast administration. Individualized dose optimization techniques were utilized. Conscious sedation was performed. The patient received 1 mg of VERSED and 25 mcg of FENTANYL intravenously. Conscious sedation was started at 2:05 PM and terminated at 218 patient was independently monitored by the department nurse. The patient was in the supine position. The overlying skin was prepped and draped in usual sterile fashion. Following local anesthetic application, an 8 Hebrew drainage catheter was placed into the gallbladder. 90 cc of dark green bile was aspirated. The catheter was left in place for gravity drainage. The patient tolerated the procedure well. COMPARISON: Comparison is made with prior CT examination dated 01/20/2021. CT/CT Guidance Abscess Drg w/Cath IMPRESSION: Successful percutaneous drainage of the distended gallbladder with removal of 90 cc of dark-colored green bile. Conscious sedation protocol was followed. Electronically Signed: Juan Carlos Crump MD at 14:47 EDT , Service support ,
[2021-01-21] MEDS: 0.9% Saline Lock 10 ML Syringe IV ×3 (10:08→16:07)
--- NOTE | 2021-01-21 10:15 | CASEMGMT ---
RN CM Face to Face with patient for initial transition planning/care coordination assessment. RN CM introduced self and role at [facility]. Patient lying in bed, alert and oriented. Patient willing to participate in assessment and is able to answer all questions appropriately. Care providers, pharmacy, and demographics verified. Patient wishes to discharge home, denies need for home health at this time. Patient states she has no further needs or concerns at this time. CM to follow for discharge planning needs that may arise. PCP: Ava Specialists: Cesar, oncologist Preferred Pharmacy: [facility] Pres[place] Benefit: yes Living Will/HPOA: yes, Alvaro Burden LNOK: Living Arrangements: Patient lives with in a 2 story home with bed and bath on first floor. Patient states there at 2 steps and railing to enter the home. Patient states she is independent at home. Transportation: DME/HHC: Patient states she has shower chair, cane, walker, and grab bars at home. Patient states she has previously had [facility] HHC. Disposition Plan: Patient to discharge home with family support and follow-up plans in place. Norma BAEZ, RN, CM
--- NOTE | 2021-01-21 10:32 | PN.SURG_ITS ---
Subjective Subjective Patient seen and examined during AM rounds. She reports some improvement in her abdominal pain. She denies any nausea or vomiting. Objective Data Objective Data Vital Signs: Vital Signs Temp Pulse Resp BP Pulse Ox 98.3 F 76 14 125/72 H 92 01/21/21 10:31 01/21/21 10:31 01/21/21 10:31 01/21/21 10:31 01/21/21 10:31 Oxygen Delivery Method Room Air Weight: 128 lb 11.999 oz Body Mass Index (BMI) 23.0 Intake & Output: Intake and Output for Last 24 Hours 01/19/21 01/20/21 01/21/21 23:59 23:59 23:59 Intake Total 1100 / 1100 1030 / 1030 Balance 1100 / 1100 1030 / 1030 Lab / Micro Data Result Diagrams: 01/21/21 05:44 01/21/21 05:44 Labs: Laboratory Results - last 24 hr 01/21/21 05:44: WBC 21.7 H, RBC 4.97, Hgb 15.6 H, Hct 45.5, MCV 91.5, MCH 31.4, MCHC 34.3 D, RDW Std Deviation 44.9 H, RDW Coeff of Genoveva 13.2, Plt Count 208, MPV 11.1, Immature Gran % (Auto) 0.600, Neut % (Auto) 82.0 H, Lymph % (Auto) 6.1 L, [place] % (Auto) 8.1, Eos % (Auto) 2.9, Baso % (Auto) 0.3, Absolute Neuts (auto) 17.8 H, Absolute Lymphs (auto) 1.33, Nucleated RBC % 0, Diff Path Review May foll, Atypical Lymphocytes 1+ 01/21/21 05:44: Sodium 132 L, Potassium 3.6, Chloride 102, Carbon Dioxide 22.0, Anion Gap 8, BUN 7, Creatinine 0.59, Estim Creat Clear Calc 34.90, Est GFR (MDRD) Af Amer 126, Est GFR (MDRD) Non-Af 104, BUN/Creatinine Ratio 11.9, Glucose 115 H, Calcium 7.5 L, Total Bilirubin 1.20 H, AST 27, ALT 23, Alkaline Phosphatase 106, Total Protein 6.2 L, Albumin 2.4 L, Globulin 3.8, Albumin/Globulin Ratio 0.6 L 01/21/21 07:14: PT 15.3 H, INR 1.3, APTT 31.4 Radiography Diagnostic Testing: Radiology Impression Abdomen/Pelvis CT 01/20/21 08:43 IMPRESSION: * Abnormal appearance of the gallbladder. There appears cholelithiasis and a small amount of pericholecystic fluid as well as gallbladder distention. Clinical correlation recommended. Ultrasound correlation may also be helpful. Consider cholecystitis. * There is bowel wall thickening of the sigmoid colon which may represent a mild distal sigmoid colitis. There are diverticula without evidence of diverticulitis. * I do not see evidence of recurrent tumor. Electronically Signed: Alivia Hanks MD at 11:31 EDT , Service support , Gallbladder Ultrasound 01/20/21 14:20 IMPRESSION: Heterogeneous appearance of the liver. Mildly distended gallbladder with a solitary gallstone and small amount of pericholecystic fluid. Findings are included with acute cholecystitis. Electronically Signed: Juan Carlos Crump MD at 8:54 EDT , Service support , Physical Exam Const oriented x3 and no apparent distress Constitutional Narrative: Sleeping on my arrival to the room GI GI Narrative: Patient is soft but focally tender in the right upper quadrant wit h positive Jean sign. Assessment & Plan Assessment/Plan (1) Acute cholecystitis: PLAN: Patient is hospital day one for diagnosis of acute cholecystitis. Leukocytosis is somewhat worse today and patient's exam remains consistent with gallbladder inflammation. Gallbladder ultrasound confirms this diagnosis. Plan to proceed for CT-guided percutaneous cholecystostomy tube placement today.
[2021-01-21] MEDS: Metoprolol Tartrate 25 MG Tablet PO ×2 (10:33→20:36)
[2021-01-21] MEDS: Famotidine 20 MG Tablet PO (10:34)
[2021-01-21] MEDS: Losartan Potassium 50 MG Tablet PO (10:34)
[2021-01-21] MEDS: Paroxetine 20 MG Tablet PO (10:34)
[2021-01-21 12:54] LABS: Pathologist Review Reviewed
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
[2021-01-21] MEDS: Midazolam 2 MG/2 ML Syringe IV (14:08)
[2021-01-21] MEDS: fentaNYL 100 MCG/2 ML Ampul IV (14:10)
--- NOTE | 2021-01-21 15:13 | CHAPLAIN ---
Type of Pastoral Visit ___ Initial Visit ___ Follow-up Visit ___ On-call Visit ___ General Patient Visit ___ Spiritual Assessment ___ Family Conference ___ Bereavement ___ Rapid Response ___ Code Blue ___ Other (describe below) Pastoral Care Referral From ___ Patient ___ Family ___ Nurse ___ Physician ___ Intermodal Dispatcher ___ Preschool Head Teacher ___ Other (describe below) Sacrament/Intervention ___ Active listening ___ Anointing ___ Gnosticism ___ Bereavement ___ Communion ___ Kiana exploration ___ ___ Life review ___ Prayer ___ Reconciliation ___ Sacrament of Sick ___ Supportive presence ___ Wedding ___ Other (describe below) Pastoral Comments patient was not in the room; left a calling card
--- NOTE | 2021-01-21 16:54 | NURSING ---
david tubing flushed per orders
[2021-01-21] MEDS: oxyCODONE 5 MG Tablet PO (17:01)
[2021-01-21] MEDS: Zolpidem Tartrate 5 MG Tablet PO (22:14)
[2021-01-22] VITALS (8 sets, daily range): BP systolic 132–175; BP diastolic 53–90; PULSE 67–81; RESP 14–18; TEMP 36.3–36.8; O2SAT 92–94
[2021-01-22] MEDS: Acetaminophen 325 MG Tablet 650 MG PO ×2 (04:46→21:15)
[2021-01-22] MEDS: Levothyroxine 50 MCG Tablet PO (04:46)
[2021-01-22] MEDS: oxyCODONE 5 MG Tablet PO ×2 (04:46→21:16)
[2021-01-22] MEDS: 0.9% Normal Saline 1,000 ML 100 ML IV (04:51)
[2021-01-22 05:45] LABS: Absolute Lymphocyte Count 0.93 X10^3/uL (0.83-4.51); Absolute Neutrophil Count 18.1 X10^3/uL (2.0-7.7); Basophil# 0.06 X10^3/uL; Basophil% 0.3 % (0-1); Eosinophil# 0.03 X10^3/uL; Eosinophils% 0.1 % (0-5); Hematocrit 47.1 % (37-47); Hemoglobin 14.5 g/dL (12.0-15.0); Lymphocyte # 0.93 X10^3/ul (0.83-4.51); Lymphocyte % 4.5 % (19-41); Mean Corp Hgb Conc 30.8 g/dL (32-36); Mean Corpuscular Hgb 31.5 pg (27.0-32.0); Mean Corpuscular Volume 102.4 fL (81-99); Mean Platelet Vol. 9.9 fl (6.2-12.0); Monocyte# 1.31 X10^3/uL; Monocyte% 6.4 % (0-10); NRBC Flagged by Analyzer 0 % (0-5); Neutrophil # 18.13 X10^3/uL (2.7-7.7); Platelet Count 199 K/mm3 (150-450); RBC Distribution Width CV 13.9 % (11.6-14.6); RBC Distribution Width SD 52.6 fl (35.1-43.9); White Blood Count 20.6 K/mm3 (4.4-11.0)
[2021-01-22 06:11] LABS: ALB/GLOB Ratio 0.6 RATIO (0.9-2.4); AST(SGOT) 15 U/L (15-37); Alanine Aminotransfer ALT/SGPT 17 U/L (13-56); Albumin, Serum 2.2 g/dL (3.2-5.0); Alkaline Phosphatase 98 U/L (45-117); Anion Gap 7 (5-15); BUN 12 mg/dL (7-18); BUN/Creat Ratio 18.9 RATIO (10-20); Calcium,Total 8.3 mg/dL (8.5-10.1); Chloride 103 mmol/L (98-107); Creatinine, Serum 0.64 mg/dL (0.55-1.02); EST Glomerular Filtration Rate 96 mL/min (>60); Est Glom Filt Rate - Afr Amer 116 mL/min (>60); Globulin 3.7 g/dL (2.2-4.2); Glucose 126 mg/dL (74-106); Potassium 3.7 mmol/L (3.5-5.1); Protein, Total 5.9 g/dL (6.4-8.2); Sodium Level 135 mmol/L (136-145)
[2021-01-22] MEDS: Famotidine 20 MG Tablet PO (07:56)
[2021-01-22] MEDS: Losartan Potassium 50 MG Tablet PO (07:56)
[2021-01-22] MEDS: Metoprolol Tartrate 25 MG Tablet PO ×2 (07:56→21:14)
[2021-01-22] MEDS: Paroxetine 20 MG Tablet PO (07:57)
[2021-01-22] MEDS: Morphine 4 MG/ML Syringe IV (08:00)
[2021-01-22] MEDS: 0.9% Saline Lock 10 ML Syringe IV ×6 (08:00→21:14)
[2021-01-22] MEDS: HYDROmorphone 0.5 MG/0.5 ML SYRINGE IV ×2 (10:28→17:08)
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
--- NOTE | 2021-01-22 12:39 | CHAPLAIN ---
Type of Pastoral Visit _x__ Initial Visit ___ Follow-up Visit ___ On-call Visit ___ General Patient Visit ___ Spiritual Assessment ___ Family Conference ___ Bereavement ___ Rapid Response ___ Code Blue ___ Other (describe below) Pastoral Care Referral From _x__ Patient ___ Family ___ Nurse ___ Physician ___ Hand Gluer And Slicer ___ Retread Operator ___ Other (describe below) Sacrament/Intervention _x__ Active listening ___ Anointing ___ Druze ___ Bereavement ___ Communion ___ Kiaan exploration ___ ___ Life review _x__ Prayer ___ Reconciliation ___ Sacrament of Sick _x__ Supportive presence ___ Wedding ___ Other (describe below) Pastoral Comments spouse was in room also; spouse asks if their counter pocket trimmer could come to hospital
[2021-01-22] MEDS: LORazepam 0.5 MG Tablet PO ×2 (13:54→21:14)
[2021-01-22] MEDS: hydrALAZINE 20 MG/ML Vial 10 MG IV (13:54)
--- NOTE | 2021-01-22 14:04 | PN.SURG_ITS ---
Subjective Subjective Patient seen and examined during AM rounds. She reports she did not sleep well and was confused but was doing better this morning. She is still eager for discharge but understands that she must wait until she is more clinically well. I was notified by nursing approximately an hour after rounds that patient had d eveloped acute onset pain at her drain site in the catheter no longer appeared to be draining. They determined there was a kinking of the tubing and the drain was flushed resulting in 25 mL net return. The patient experienced relief of her pain after this event. Objective Data Objective Data Vital Signs: Vital Signs Temp Pulse Resp BP Pulse Ox 97.9 F 81 14 175/90 H 92 01/22/21 07:51 01/22/21 13:54 01/22/21 07:51 01/22/21 13:54 01/22/21 07:51 Oxygen Flow Rate (L/min) [3] 2 Oxygen Flow Rate (L/min) [2] 2 Oxygen Flow Rate (L/min) [1 ( 2 Initial Baseline)] Oxygen Flow Rate (L/min) 2 Oxygen Delivery Method [3] Room Air Oxygen Delivery Method [2] Nasal Cannula Oxygen Delivery Method [1 ( Nasal Cannula Initial Baseline)] Oxygen Delivery Method Room Air Weight: 123 lb 7.342 oz Body Mass Index (BMI) 22.3 Intake & Output: Intake and Output for Last 24 Hours 01/20/21 01/21/21 01/22/21 23:59 23:59 23:59 Intake Total 1100 / 1100 2248 / 2448 1500 / 1500 Output Total 150 / 175 60 / 60 Balance 1100 / 1100 2098 / 2273 1440 / 1440 Lab / Micro Data Result Diagrams: 01/22/21 05:24 01/22/21 05:24 Labs: Laboratory Results - last 24 hr 01/22/21 05:24: WBC 20.6 H, RBC 4.60, Hgb 14.5, Hct 47.1 H, MCV 102.4 H D, MCH 31.5, MCHC 30.8 L D, RDW Std Deviation 52.6 H, RDW Coeff of Genoveva 13.9, Plt Count 199, MPV 9.9, Immature Gran % (Auto) 0.700, Neut % (Auto) 88.0 H, Lymph % (Auto) 4.5 L, [place] % (Auto) 6.4, Eos % (Auto) 0.1, Baso % (Auto) 0.3, Absolute Neuts (a uto) 18.1 H, Absolute Lymphs (auto) 0.93, Nucleated RBC % 0 01/22/21 05:24: Sodium 135 L, Potassium 3.7, Chloride 103, Carbon Dioxide 25.0, Anion Gap 7, BUN 12, Creatinine 0.64, Estim Creat Clear Calc 34.90, Est GFR (MDRD) Af Amer 116, Est GFR (MDRD) Non-Af 96, BUN/Creatinine Ratio 18.9, Glucose 126 H, Calcium 8.3 L, Total Bilirubin 1.70 H, AST 15, ALT 17, Alkaline Phosph atase 98, Total Protein 5.9 L, Albumin 2.2 L, Globulin 3.7, Albumin/Globulin Ratio 0.6 L Micro: Microbiology 01/21/21 14:25 Fluid - Gallbladder Gram Stain - Final 01/21/21 14:25 Fluid - Gallbladder Body Fluid Culture - Preliminary Gram negative hansa Radiography Diagnostic Testing: Radiology Impression Abscess Drainage CT 01/21/21 09:55 IMPRESSION: Successful percutaneous drainage of the distended gallbladder with removal of 90 cc of dark-colored green bile. Conscious sedation protocol was followed. Electronically Signed: Juan Carlos Crump MD at 14:47 EDT , Service support , Physical Exam Const oriented x3 and no apparent distress Resp normal respiratory effort GI GI Narrative: Soft, nondistended, probably tender in the right upper quadrant. Cholecystostomy tubing in the right upper quadrant draining dark brown bile. There was some kinking of the catheter tubing as the patient's drain had been tucked into her underpants. Assessment & Plan Assessment/Plan (1) Acute cholecystitis: PLAN: Status post cholecystostomy tube 01/21/2021. She has experienced some resolution of her right upper quadrant tenderness. She still has some insertion site tenderness. Catheter would appear to be in good position draining bile. There was a point this morning where the catheter tubing was likely obstructed due to kinking and bile accumulated causing additional pain. Nursing has reinforced the catheter to help avoid kinking but we will have to watch this issue closely. They are now performing flushes both towards the site and away. Patient still with a white count of greater than 20,000 today. Recommend continued IV antibiotic therapy and monitoring of CBC and CMP. Charges/Coding Visit Charges Inpatient E&M: 25567 Subs Hosp L2
[2021-01-23] VITALS (16 sets, daily range): BP systolic 129–179; BP diastolic 58–77; PULSE 68–79; RESP 16–24; TEMP 36.6–37; O2SAT 92–96; BMI 22.7
[2021-01-23] MEDS: 0.9% Normal Saline 1,000 ML 100 ML IV ×2 (00:41→19:47)
[2021-01-23] MEDS: LORazepam 0.5 MG Tablet PO ×2 (03:52→15:54)
[2021-01-23 05:10] LABS: Absolute Lymphocyte Count 1.16 X10^3/uL (0.83-4.51); Absolute Neutrophil Count 14.3 X10^3/uL (2.0-7.7); Basophil# 0.05 X10^3/uL; Basophil% 0.3 % (0-1); Eosinophil# 0.09 X10^3/uL; Eosinophils% 0.5 % (0-5); Hematocrit 40.4 % (37-47); Hemoglobin 13.8 g/dL (12.0-15.0); Lymphocyte # 1.16 X10^3/ul (0.83-4.51); Lymphocyte % 7.1 % (19-41); Mean Corp Hgb Conc 34.2 g/dL (32-36); Mean Corpuscular Hgb 31.9 pg (27.0-32.0); Mean Corpuscular Volume 93.3 fL (81-99); Mean Platelet Vol. 10.3 fl (6.2-12.0); Monocyte# 0.72 X10^3/uL; Monocyte% 4.4 % (0-10); NRBC Flagged by Analyzer 0 % (0-5); Neutrophil % 87.3 % (47-70); Platelet Count 236 K/mm3 (150-450); RBC Distribution Width CV 13.7 % (11.6-14.6); RBC Distribution Width SD 46.5 fl (35.1-43.9); Red Blood Count 4.33 M/mm3 (4.2-5.4); White Blood Count 16.4 K/mm3 (4.4-11.0)
[2021-01-23] MEDS: Levothyroxine 50 MCG Tablet PO (06:32)
--- NOTE | 2021-01-23 08:13 | PN.SURG_ITS ---
Subjective Subjective Patient seen and examined during AM rounds. He is sleeping on my arrival to the room but arouses easily. She reports that her abdominal pain is somewhat improved. Unfortunately, is notified by nursing around midnight at the patient had somehow removed her cholecystostomy tube. On hearing this, I made the patient n.p.o. for possible procedure today. Objective Data Objective Data Vital Signs: Vital Signs Temp Pulse Resp BP Pulse Ox 97.8 F 79 16 129/77 H 92 01/23/21 03:38 01/23/21 03:38 01/23/21 03:38 01/23/21 03:38 01/23/21 07:40 Oxygen Flow Rate (L/min) [3] 2 Oxygen Flow Rate (L/min) [2] 2 Oxygen Flow Rate (L/min) [1 ( 2 Initial Baseline)] Oxygen Flow Rate (L/min) 2 Oxygen Delivery Method [3] Room Air Oxygen Delivery Method [2] Nasal Cannula Oxygen Delivery Method [1 ( Nasal Cannula Initial Baseline)] Oxygen Delivery Method Room Air Weight: 124 lb 5.451 oz Body Mass Index (BMI) 22.3 Intake & Output: Intake and Output for Last 24 Hours 01/21/21 01/22/21 01/23/21 23:59 23:59 23:59 Intake Total 2248 / 2448 3100 / 3250 250 / 250 Output Total 150 / 175 240 / 270 60 / 60 Balance 2098 / 2273 2860 / 2980 190 / 190 Lab / Micro Data Result Diagrams: 01/23/21 04:52 01/22/21 05:24 Labs: Laboratory Results - last 24 hr 01/23/21 04:52: WBC 16.4 H, RBC 4.33, Hgb 13.8, Hct 40.4, MCV 93.3 D, MCH 31.9, MCHC 34.2 D, RDW Std Deviation 46.5 H, RDW Coeff of Genoveva 13.7, Plt Count 236, MPV 10.3, Immature Gran % (Auto) 0.400, Neut % (Auto) 87.3 H, Lymph % (Auto) 7.1 L, [place] % (Auto) 4.4, Eos % (Auto) 0.5, Baso % (Auto) 0.3, Absolute Neuts (auto) 14.3 H, Absolute Lymphs (auto) 1.16, Nucleated RBC % 0 Micro: Microbiology 01/21/21 14:25 Fluid - Gallbladder Gram Stain - Final 01/21/21 14:25 Fluid - Gallbladder Body Fluid Culture - Preliminary Gram negative hansa Physical Exam Const oriented x3 and no apparent distress Resp normal respiratory effort GI GI Narrative: Patient's right upper quadrant cholecystostomy insertion site is covered with a clean dry gauze but the drain is in fact gone. Patient's abdomen is soft and nondistended. She has mild tenderness to palpation of this area Assessment & Plan Assessment/Plan (1) Acute cholecystitis: PLAN: Status post cholecystostomy tube 01/21/2021 that was accidentally dislodged yesterday. Patient has minimal right upper quadrant tenderness and there is no evidence of drainage through the tract. Patient's white count is actually decreased today to 16,000 from 20,000 yesterday. Still awaiting results of ordered CMP. With patient's drain removal, I am concerned that her gallbladder will not begin leaking bile into her peritoneum. I have asked radiology to reevaluate her for possible cholecystostomy tube replacement as this would hopefully provide a egress of lesser resistance to the bile and continue productive drainage. I do believe this is the most appropriate course given her extensive surgical history, but if this is not successful, would consider approaching the patient for possible cholecystectomy versus subtotal cholecystectomy. Please maintain patient n.p.o. Charges/Coding Visit Charges Inpatient E&M: 49395 Subs Hosp L2
[2021-01-23] MEDS: Famotidine 20 MG Tablet PO (08:23)
[2021-01-23] MEDS: Metoprolol Tartrate 25 MG Tablet PO ×2 (08:23→20:07)
[2021-01-23] MEDS: Losartan Potassium 50 MG Tablet PO (08:23)
[2021-01-23] MEDS: Paroxetine 20 MG Tablet PO (08:24)
--- NOTE | 2021-01-23 11:56 | PN.HOSP_ITS ---
Documented by User: Flora Addison NP, CERTIFIED DIABETES EDUCATOR-C 01/23/21 12:05 Subjective Subjective Patient seen and examined. Confused this morning. She states her abdominal pain has improved. Nursing reports patient removed her cholecystostomy tube overnight. Per surgery, plan to reevaluate placement today. Objective Data Objective Data Vital Signs: Vital Signs Temp Pulse Resp BP Pulse Ox 98.1 F 74 18 137/76 H 92 01/23/21 08:20 01/23/21 08:23 01/23/21 08:20 01/23/21 08:20 01/23/21 08:20 Oxygen Flow Rate (L/min) [3] 2 Oxygen Flow Rate (L/min) [2] 2 Oxygen Flow Rate (L/min) [1 ( 2 Initial Baseline)] Oxygen Flow Rate (L/min) 2 Oxygen Delivery Method [3] Room Air Oxygen Delivery Method [2] Nasal Cannula Oxygen Delivery Method [1 ( Nasal Cannula Initial Baseline)] Oxygen Delivery Method Room Air Weight: 124 lb 5.451 oz Body Mass Index (BMI) 22.3 Intake & Output: Intake and Output for Last 24 Hours 01/21/21 01/22/21 01/23/21 23:59 23:59 23:59 Intake Total 2248 / 2448 3100 / 3250 300 / 300 Output Total 150 / 175 240 / 270 60 / 60 Balance 2098 / 2273 2860 / 2980 240 / 240 Lab / Micro Data Result Diagrams: 01/23/21 04:52 01/23/21 04:52 Labs: Laboratory Results - last 24 hr 01/23/21 04:52: WBC 16.4 H, RBC 4.33, Hgb 13.8, Hct 40.4, MCV 93.3 D, MCH 31.9, MCHC 34.2 D, RDW Std Deviation 46.5 H, RDW Coeff of Genoveva 13.7, Plt Count 236, MPV 10.3, Immature Gran % (Auto) 0.400, Neut % (Auto) 87.3 H, Lymph % (Auto) 7.1 L, [place] % (Auto) 4.4, Eos % (Auto) 0.5, Baso % (Auto) 0.3, Absolute Neuts (auto) 14.3 H, Absolute Lymphs (auto) 1.16, Nucleated RBC % 0 Micro: Microbiology 01/21/21 14:25 Fluid - Gallbladder Gram Stain - Final 01/21/21 14:25 Fluid - Gallbladder Body Fluid Culture - Preliminary Enterobacter cloacae complex Physical Exam Const alert and no apparent distress Orientation / Consciousness: awake and oriented to person HEENT normocephalic Mouth: dry mucous membranes Eyes PERRL, EOMs intact bilaterally and conjunctivae normal 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 Neck no lymphadenopathy Resp normal respiratory effort and clear to auscultation bilaterally Cardio regular rate, regular rhythm and no murmurs Peripheral Pulses: pulses 2+ throughout GI normal to inspection, nondistended, normoactive bowel sounds and non-distended Palpation: tender RUQ and other (Improved) Extremity normal to inspection Skin no rashes or lesions noted Lesions: no lesions Rashes: no rashes Trauma: no lacerations or abrasions Neuro CN's II-XII intact bilaterally, no focal motor deficits, no sensory deficits noted and deep tendon reflexes 2+ bilaterally Psych mental status grossly normal and affect normal Assessment & Plan Assessment/Plan (1) Acute cholecystitis: PLAN: 1. Acute cholecystitis-surgery following. Underwent CT-guided percutaneous cholecystostomy tube placement 01/21/2021. IV Zosyn. As needed pain regimen. Patient removed cholecystostomy tube overnight, plan for cholecystostomy tube replacement versus cholecystectomy. Leukocytosis improving. Medically stable at this time. Management per surgery. 2. History of colon cancer, liver cancer with history of hepatitis C-status post colectomy. 3. Hypertension-stable, continue losartan, metoprolol. 4. Hypothyroidism- Synthroid. 5. Anxiety/depression- on paroxetine, ativan. 6. GERD, history of PUD- on famotidine. DVT prophylaxis-SCDs This patient was seen by FERNANDEZ Dodge under the supervision of Dr. Marc. Documented by User: Dr. Timmy Marc DO 01/23/21 17:39 Objective Data Lab / Micro Data Result Diagrams: 01/23/21 04:52 01/23/21 04:52 Charges/Coding Addendum Addendum: Patient was seen and examined today independently of Flora Addison, last night she pulled her percutaneous cholecystostomy tube out, it was replaced today under CT guidance by radiology. On examination she appeared her stated age, she does not appear to be in any distress, she has blindness. Vital signs as documented. Skin warm and dry and w ithout overt rashes. Neck without JVD, thyroid appears normal, trachea is midline, neck is supple. Lungs clear, normal air movement was noted. Heart exam notable for regular rhythm, normal sounds and absence of murmurs, rubs or gallops. Abdomen unremarkable and without evidence of organomegaly, masses, or abdominal aortic enlargement, bowel sounds are present in all 4 quadrants, no abdominal tenderness was noted. Extremities nonedematous, no cyanosis was noted, no clubbing was noted. Neuro: Cranial nerves II through XII are grossly intact, no focal motor deficits were noted, sensation to light touch and pinprick is intact, motor exam 5/5 throughout. Psych: Patient is alert and oriented x3, she does not appear anxious or depressed, she does not appear agitated. Patient will be reevaluated tomorrow, general surgery is participating in her care, I have reviewed Flora Addison's progress note including her medical assessment and plan of care and endorse it. Visit Charges Inpatient E&M: 46531 Subs Hosp L2
--- NOTE | 2021-01-23 12:49 | NURSING ---
pt transported off unit at this time via bed for CT scan
[2021-01-23 13:08] LABS: ALB/GLOB Ratio 0.6 RATIO (0.9-2.4); AST(SGOT) 15 U/L (15-37); Alanine Aminotransfer ALT/SGPT 17 U/L (13-56); Albumin, Serum 2.2 g/dL (3.2-5.0); Alkaline Phosphatase 95 U/L (45-117); Anion Gap 4 (5-15); BUN 8 mg/dL (7-18); BUN/Creat Ratio 13.7 RATIO (10-20); Calcium,Total 8.3 mg/dL (8.5-10.1); Chloride 103 mmol/L (98-107); Creatinine, Serum 0.58 mg/dL (0.55-1.02); EST Glomerular Filtration Rate 106 mL/min (>60); Est Glom Filt Rate - Afr Amer 128 mL/min (>60); Globulin 3.9 g/dL (2.2-4.2); Glucose 120 mg/dL (74-106); Potassium 3.1 mmol/L (3.5-5.1); Protein, Total 6.1 g/dL (6.4-8.2); Sodium Level 135 mmol/L (136-145)
--- NOTE | 2021-01-23 13:38 | CT_ITS ---
STUDY: PERCUTANEOUS CHOLECYSTOSTOMY REASON FOR EXAM: Female, 80 years old. Please evaluate for replacement of cholecystostomy RADIATION DOSAGE (If Supplied By Facility): CTDIvol = ( 9.94 ) mGy, DLP = ( 379.16 ) mGycm. Individualized dose optimization techniques were used for this CT.? TECHNIQUE: Multiple axial tomographic images of the right upper quadrant were obtained. There is mild dilatation of the gallbladder. Solitary gallstone is seen in the neck of the gallbladder. COMPARISON: Comparison is made with prior examination 01/21/2021. FINDINGS: The patient was in the supine position. The overlying skin was prepped and draped in the usual sterile fashion. Conscious sedation was performed. The patient received 1 mg of VERSED and 25 mcg of FENTANYL intravenously. Conscious sedation was started at 1340 and terminated at 1345. The patient was independently monitored by the department nurse. Following local anesthetic application, an 8 Tunisian all-purpose drainage catheter was placed into the gallbladder. Approximately 30 cc of bile was removed. The catheter was left in place to drain by gravity. CT/CT Guidance Abscess Drg w/Cath IMPRESSION: Successful percutaneous cholecystostomy. The patient tolerated the procedure well. Electronically Signed: Juan Carlos Crump MD at 14:05 EDT , Service support ,
[2021-01-23] MEDS: fentaNYL 100 MCG/2 ML Ampul IV (13:40)
[2021-01-23] MEDS: Lidocaine 2% (20 ml mdv) 20 ML Vial INFILT (13:40)
[2021-01-23] MEDS: Midazolam 2 MG/2 ML Syringe IV (13:40)
[2021-01-23] MEDS: Acetaminophen 325 MG Tablet 650 MG PO (15:54)
[2021-01-23] MEDS: Potassium Chloride Oral Tablet 20 MEQ 60 MEQ PO (17:43)
[2021-01-23] MEDS: Ketorolac 15 MG/ML Vial IV ×2 (17:46→23:32)
[2021-01-23] MEDS: 0.9% Saline Lock 10 ML Syringe IV ×2 (17:46→21:25)
[2021-01-23] MEDS: Zolpidem Tartrate 5 MG Tablet PO (20:12)
[2021-01-24] VITALS (7 sets, daily range): BP systolic 138–178; BP diastolic 57–91; PULSE 70–83; RESP 18; TEMP 36.6–36.9; O2SAT 91–93
[2021-01-24] MEDS: 0.9% Saline Lock 10 ML Syringe IV (02:11)
[2021-01-24] MEDS: 0.9% Normal Saline 1,000 ML 100 ML IV (05:50)
[2021-01-24] MEDS: Ketorolac 15 MG/ML Vial IV ×2 (05:54→12:01)
[2021-01-24] MEDS: Levothyroxine 50 MCG Tablet PO (05:54)
[2021-01-24] MEDS: hydrALAZINE 20 MG/ML Vial 10 MG IV (06:02)
[2021-01-24 06:41] LABS: Absolute Neutrophil Count 7.7 X10^3/uL (2.0-7.7); Basophil# 0.05 X10^3/uL; Basophil% 0.5 % (0-1); Eosinophil# 0.11 X10^3/uL; Eosinophils% 1.1 % (0-5); Hematocrit 39.6 % (37-47); Hemoglobin 13.4 g/dL (12.0-15.0); Lymphocyte % 13.3 % (19-41); Mean Corp Hgb Conc 33.8 g/dL (32-36); Mean Corpuscular Hgb 31.1 pg (27.0-32.0); Mean Corpuscular Volume 91.9 fL (81-99); Mean Platelet Vol. 10.2 fl (6.2-12.0); Monocyte# 0.56 X10^3/uL; Monocyte% 5.7 % (0-10); NRBC Flagged by Analyzer 0 % (0-5); Neutrophil # 7.73 X10^3/uL (2.7-7.7); Neutrophil % 79.1 % (47-70); Platelet Count 255 K/mm3 (150-450); RBC Distribution Width CV 13.6 % (11.6-14.6); RBC Distribution Width SD 46.3 fl (35.1-43.9); Red Blood Count 4.31 M/mm3 (4.2-5.4); White Blood Count 9.8 K/mm3 (4.4-11.0)
[2021-01-24 07:12] LABS: ALB/GLOB Ratio 0.6 RATIO (0.9-2.4); AST(SGOT) 14 U/L (15-37); Alanine Aminotransfer ALT/SGPT 17 U/L (13-56); Albumin, Serum 2.2 g/dL (3.2-5.0); Alkaline Phosphatase 98 U/L (45-117); Anion Gap 9 (5-15); BUN 5 mg/dL (7-18); BUN/Creat Ratio 10.9 RATIO (10-20); Calcium,Total 8.1 mg/dL (8.5-10.1); Chloride 107 mmol/L (98-107); Creatinine, Serum 0.46 mg/dL (0.55-1.02); EST Glomerular Filtration Rate 139 mL/min (>60); Est Glom Filt Rate - Afr Amer 168 mL/min (>60); Globulin 3.8 g/dL (2.2-4.2); Glucose 88 mg/dL (74-106); Potassium 3.5 mmol/L (3.5-5.1); Sodium Level 140 mmol/L (136-145)
[2021-01-24] MEDS: Metoprolol Tartrate 25 MG Tablet PO (08:32)
[2021-01-24] MEDS: Paroxetine 20 MG Tablet PO (08:32)
[2021-01-24] MEDS: Famotidine 20 MG Tablet PO (08:32)
[2021-01-24] MEDS: Losartan Potassium 50 MG Tablet PO (08:33)
[2021-01-24] MEDS: Acetaminophen 325 MG Tablet 650 MG PO (10:50)
--- NOTE | 2021-01-24 10:53 | PN.SURG_ITS ---
Subjective Subjective Patient was seen and examined during AM rounds. She is in good spirits. She denies any significant abdominal pain. She had a restful night without the confusion of the prior 2 nights. Objective Data Objective Data Vital Signs: Vital Signs Temp Pulse Resp BP Pulse Ox 97.9 F 80 18 151/57 H 93 01/24/21 08:00 01/24/21 08:32 01/24/21 08:00 01/24/21 08:00 01/24/21 08:10 Oxygen Flow Rate (L/min) [4] 1 Oxygen Flow Rate (L/min) [3] 2 Oxygen Flow Rate (L/min) [2] 2 Oxygen Flow Rate (L/min) [1 ( 1 Initial Baseline)] Oxygen Flow Rate (L/min) 2 Oxygen Delivery Method [4] Nasal Cannula Oxygen Delivery Method [3] Room Air Oxygen Delivery Method [2] Nasal Cannula Oxygen Delivery Method [1 ( Room Air Initial Baseline)] Oxygen Delivery Method Room Air Weight: 132 lb 4.438 oz Body Mass Index (BMI) 22.7 Intake & Output: Intake and Output for Last 24 Hours 01/22/21 01/23/21 01/24/21 23:59 23:59 23:59 Intake Total 3100 / 3250 1500 / 1500 1200 / 1200 Output Total 240 / 270 105 / 105 20 / 20 Balance 2860 / 2980 1395 / 1395 1180 / 1180 Lab / Micro Data Result Diagrams: 01/24/21 06:05 01/24/21 06:05 Labs: Laboratory Results - last 24 hr 01/23/21 04:52: Sodium 135 L, Potassium 3.1 L, Chloride 103, Carbon Dioxide 28.0, Anion Gap 4 L, BUN 8, Creatinine 0.58, Estim Creat Clear Calc 34.90, Est GFR (MDRD) Af Amer 128, Est GFR (MDRD) Non-Af 106, BUN/Creatinine Ratio 13.7, Glucose 120 H, Calcium 8.3 L, Total Bilirubin 0.90, AST 15, ALT 17, Alkaline Phosphatase 95, Total Protein 6.1 L, Albumin 2.2 L, Globulin 3.9, Albumin/Globu eliana Ratio 0.6 L 01/24/21 06:05: WBC 9.8, RBC 4.31, Hgb 13.4, Hct 39.6, MCV 91.9, MCH 31.1, MCHC 33.8, RDW Std Deviation 46.3 H, RDW Coeff of Genoveva 13.6, Plt Count 255, MPV 10.2, Immature Gran % (Auto) 0.300, Neut % (Auto) 79.1 H, Lymph % (Auto) 13.3 L, [place] % (Auto) 5.7, Eos % (Auto) 1.1, Baso % (Auto) 0.5, Absolute Neuts (auto) 7.7, Absolute Lymphs (auto) 1.30, Nucleated RBC % 0 01/24/21 06:05: Sodium 140, Potassium 3.5, Chloride 107, Carbon Dioxide 24.0, Anion Gap 9, BUN 5 L, Creatinine 0.46 L, Estim Creat Clear Calc 34.90, Est GFR (MDRD) Af Amer 168, Est GFR (MDRD) Non-Af 139, BUN/Creatinine Ratio 10.9, Glucose 88, Calcium 8.1 L, Total Bilirubin 1.00, AST 14 L, ALT 17, Alkaline Phosphatase 98, Total Protein 6.0 L, Albumin 2.2 L, Globulin 3.8, Albumin/Globulin Ratio 0.6 L Micro: Microbiology 01/21/21 14:25 Fluid - Gallbladder Gram Stain - Final 01/21/21 14:25 Fluid - Gallbladder Body Fluid Culture - Final Enterobacter cloacae complex 01/21/21 14:25 Fluid - Gallbladder Anaerobic Culture - Preliminary Checking for anaerobes, further studies to follow. Radiography Diagnostic Testing: Radiology Impression Abscess Drainage CT 01/23/21 13:38 IMPRESSION: Successful percutaneous cholecystostomy. The patient tolerated the procedure well. Electronically Signed: Juan Carlos Crump MD at 14:05 EDT , Service support , Physical Exam Const no apparent distress GI GI Narrative: Soft, nondistended. Minimal tenderness about her cholecystostomy insertion site. Cholecystostomy draining light brown bile. Securing dressings remain intact Assessment & Plan Assessment/Plan (1) Acute cholecystitis: PLAN: Patient status post cholecystostomy tube placement for acute cholecystitis. Drain seems to be working well and white blood cell count has returned to normal. Patient is having minimal tenderness. Okay for discharge from surgery standpoint once patient's family is educated on how to care for cholecystostomy tube (please instruct on flushing and recording 24-hour outpu ts). Additionally please have patient wear abdominal binder while at night to protect the tube from inadvertent dislodgment. I would like to see the patient in outpatient follow-up in 1 week post hospital discharge. Charges/Coding Visit Charges Inpatient E&M: 86783 Subs Hosp L2
--- NOTE | 2021-01-24 11:38 | PCM.DC ---
Discharge Instructions Diet Discharge Diet: Low fat / Low cholesterol Activity Discharge Activity: Return to Normal Activity Dressing / Incision Call your doctor if your incision/area has: Continuous Slow Oozing, Sudden Increased Bleeding, Increased Pain/ Swelling, Increased Redness, Foul Smelling Discharge and Swelling at the incision site Call your doctor if you observe: Fever of 101 or Higher Cleanse incision/area with: Keep Dressing Clean & Dry Additional Dressing/Incision Instructions:: wear abdominal binder at night to prevent tube dislodgement. keep track of outputs of drainage. Follow Up Care Please Follow Up With: Kamlesh Brown MD When: 1 week Test Results: Test results from this visit will be discussed in further detail at your follow-up appointment, if applicable. Discharge Plan Admission Admit Date/Time: 01/20/21 14:14 Primary Reason for Your Visit: Acute Cholecystitis Attending Provider: Timmy Marc Primary Care Provider: Elvia Escalante Consulting Providers: Kamlesh Brown Discharge Orders/Prescriptions Prescriptions: New hydrocodone-acetaminophen 5-325 mg tablet 1 tab PO Q6H PRN (Reason: pain) 5 Days Qty: 20 RF: 0 Continued metoprolol tartrate 25 mg tablet 25 mg PO BID Qty: 180 RF: 3 loperamide [Imodium A-D] 2 mg capsule 2 mg PO Q1-4H PRN (Reason: Diarrhea) RF: 0 famotidine [Pepcid] 20 mg tablet 20 mg PO DAILY RF: 0 paroxetine HCl [Paxil] 20 mg tablet 20 mg PO DAILY RF: 0 lorazepam 0.5 mg tablet 0.5 mg PO Q6H PRN (Reason: Anxiety) Qty: 120 RF: 0 acetaminophen 500 mg capsule 500 mg PO Q6H PRN (Reason: pain) RF: 0 levothyroxine 50 MCG tablet 50 mcg PO DAILY RF: 0 folic acid 1 MG tablet 1 mg PO DAILY RF: 0 zolpidem [Ambien CR] 12.5 MG tablet,ext release multiphase 10 mg PO QHS RF: 0 Refresh Dry Eye Therapy 1 drp EACH EYE BID RF: 0 losartan 50 mg tablet 50 mg PO DAILY Qty: 30 RF: 11 Referrals / Follow Up: Elvia Escalante MD [Primary Care Provider] - Disposition Disposition (needs filled in before D/C Order can be placed): Home, Self Care
--- NOTE | 2021-01-24 11:48 | PCM.DC.SUM ---
Documented by User: FERNANDEZ Ac 01/24/21 11:53 Providers Date of Admission: 01/20/21 Date of Discharge: 01/24/21 Primary Care Physician: Dr. Elvia Escalante MD Consultations 01/20/21 16:00 Consult: General Surgery Routine Consulting Provider: Kamlesh Brown Reason for Consult: Acute Cholecystitis EMERGENT Consult: No MD Notified: Yes Date Notified: 01/20/21 Time Notified: 14:16 Method of Notification: called per ED Reason For Visit: ACUTE CHOLECYSTITIS Diagnosis Discharge Diagnosis (1) Acute cholecystitis: Status: Acute Code(s): K81.0 - Acute cholecystitis Medications at Discharge Home Medications levothyroxine 50 mcg PO DAILY 03/02/17 folic acid 1 mg PO DAILY 05/04/17 metoprolol tartrate 25 mg tablet 25 mg PO BID #180 tab 08/25/17 loperamide 2 mg capsule 2 mg PO Q1-4H PRN 02/26/18 acetaminophen 500 mg capsule 500 mg PO Q6H PRN 03/16/19 lorazepam 0.5 mg tablet 0.5 mg PO Q6H PRN #120 tab 03/16/19 paroxetine HCl 20 mg tablet 20 mg PO DAILY 03/16/19 famotidine 20 mg tablet 20 mg PO DAILY 03/29/19 zolpidem [Ambien CR] 10 mg PO QHS 11/09/19 Refresh Dry Eye Therapy 1 drp EACH EYE BID 01/20/21 hydrocodone-acetaminophen 1 tab PO Q6H PRN 5 Days #20 tab 01/24/21 losartan 50 mg tablet 50 mg PO DAILY #30 tab 01/24/21 Hospital Course Operations cholecystecomy (Cholecystostomy tube) Procedures None Summary of Care Provided Minutes Spent on Discharge: 35 Hospital Course: Patient is an 80-year-old female who was admitted with right upper quadrant pain. Patient underwent placement for CT guided cholecystostomy tube placement. Overnight on 01/22/2021 patient's cholecystostomy tube either came out or patient removed and a new tube was placed on 01/23/2021. Patient will be discharged home with instructions on how to care for and drain cholecystostomy. Patient instructed to wear abdominal binder at night to prevent inadvertent dislodgment. Patient will follow up with Dr. Brown 1 week following discharge Physical Exam Const alert and oriented x3 General Appearance: cooperative HEENT normocephalic and head/scalp atraumatic Eyes conjunctivae normal and no scleral icterus Neck supple General: trachea midline Resp normal respiratory effort, normal air movement and clear to auscultation bilaterally Cardio regular rate, regular rhythm, S1 normal heart sound, S2 normal heart sound and peripheral pulses 2+ throughout GI soft to palpation Auscultation: hypoactive bowel sounds Palpation: tender RUQ Extremity normal capillary refill and no clubbing, cyanosis or edema General Extremity: no tenderness to palpation of joints or extremities Skin skin turgor normal General Skin Exam: no breakdown Lesions: no lesions Rashes: no rashes Neuro no focal motor deficits and no sensory deficits noted Speech: speech normal Motor Exam: Negative for general weakness Weight / BMI Weight Weight: 132 lb 4.438 oz Body Mass Index (BMI) 22.7 ABG / Lab / Microbiology Data Result Diagrams: 01/24/21 06:05 01/24/21 06:05 Laboratory: Laboratory Results - last 24 hr 01/23/21 04:52: Sodium 135 L, Potassium 3.1 L, Chloride 103, Carbon Dioxide 28.0, Anion Gap 4 L, BUN 8, Creatinine 0.58, Estim Creat Clear Calc 34.90, Est GFR (MDRD) Af Amer 128, Est GFR (MDRD) Non-Af 106, BUN/Creatinine Ratio 13.7, Glucose 120 H, Calcium 8.3 L, Total Bilirubin 0.90, AST 15, ALT 17, Alkaline Phosphatase 95, Total Protein 6.1 L, Albumin 2.2 L, Globulin 3.9, Albumin/Globulin Ratio 0.6 L 01/24/21 06:05: WBC 9.8, RBC 4.31, Hgb 13.4, Hct 39.6, MCV 91.9, MCH 31.1, MCHC 33.8, RDW Std Deviation 46.3 H, RDW Coeff of Genoveva 13.6, Plt Count 255, MPV 10.2, Immature Gran % (Auto) 0.300, Neut % (Auto) 79.1 H, Lymph % (Auto) 13.3 L, [place] % (Auto) 5.7, Eos % (Auto) 1.1, Baso % (Auto) 0.5, Absolute Neuts (auto) 7.7, Absolute Lymphs (auto) 1.30, Nucleated RBC % 0 01/24/21 06:05: Sodium 140, Potassium 3.5, Chloride 107, Carbon Dioxide 24.0, Anion Gap 9, BUN 5 L, Creatinine 0.46 L, Estim Creat Clear Calc 34.90, Est GFR (MDRD) Af Amer 168, Est GFR (MDRD) Non-Af 139, BUN/Creatinine Ratio 10.9, Glucose 88, Calcium 8.1 L, Total Bilirubin 1.00, AST 14 L, ALT 17, Alkaline Phosphatase 98, Total Protein 6.0 L, Albumin 2.2 L, Globulin 3.8, Albumin/Globulin Ratio 0.6 L Microbiology: Microbiology 01/21/21 14:25 Fluid - Gallbladder Gram Stain - Final 01/21/21 14:25 Fluid - Gallbladder Body Fluid Culture - Final Enterobacter cloacae complex 01/21/21 14:25 Fluid - Gallbladder Anaerobic Culture - Preliminary Checking for anaerobes, further studies to follow. Radiography Diagnostic Testing: Radiology Impression Abscess Drainage CT 01/23/21 13:38 IMPRESSION: Successful percutaneous cholecystostomy. The patient tolerated the procedure well. Electronically Signed: Juan Carlos Crump MD at 14:05 EDT , Service support , D/C Instructions Discharge Diet: Low fat / Low cholesterol Call your doctor if your incision/area has: Continuous Slow Oozing, Sudden Increased Bleeding, Increased Pain/ Swelling, Increased Redness, Foul Smelling Discharge and Swelling at the incision site Call your doctor if you observe: Fever of 101 or Higher Cleanse incision/area with: Keep Dressing Clean & Dry Additional Dressing/Incision Instructions: wear abdominal binder at night to prevent tube dislodgement. keep track of outputs of drainage. Please Follow Up With: Kamlesh Brown MD When: 1 week Meaningful Use Info Meaningful Use Diagnoses (Choose all that apply): None applicable Discharge Plan Admission Admit Date/Time: 01/20/21 14:14 Primary Reason for Your Visit: Acute Cholecystitis Attending Provider: Timmy Mrac Primary Care Provider: Elvia Escalante Consulting Providers: Kamlesh Brown Discharge Orders/Prescriptions Prescriptions: New hydrocodone-acetaminophen 5-325 mg tablet 1 tab PO Q6H PRN (Reason: pain) 5 Days Qty: 20 RF: 0 Continued metoprolol tartrate 25 mg tablet 25 mg PO BID Qty: 180 RF: 3 loperamide [Imodium A-D] 2 mg capsule 2 mg PO Q1-4H PRN (Reason: Diarrhea) RF: 0 famotidine [Pepcid] 20 mg tablet 20 mg PO DAILY RF: 0 paroxetine HCl [Paxil] 20 mg tablet 20 mg PO DAILY RF: 0 lorazepam 0.5 mg tablet 0.5 mg PO Q6H PRN (Reason: Anxiety) Qty: 120 RF: 0 acetaminophen 500 mg capsule 500 mg PO Q6H PRN (Reason: pain) RF: 0 levothyroxine 50 MCG tablet 50 mcg PO DAILY RF: 0 folic acid 1 MG tablet 1 mg PO DAILY RF: 0 zolpidem [Ambien CR] 12.5 MG tablet,ext release multiphase 10 mg PO QHS RF: 0 Refresh Dry Eye Therapy 1 drp EACH EYE BID RF: 0 No Action losartan 50 mg tablet 50 mg PO DAILY Qty: 30 RF: 11 Referrals / Follow Up: Elvia Escalante MD [Primary Care Provider] - Disposition Disposition (needs filled in before D/C Order can be placed): Home Health Service Documented by User: Dr. Timmy Marc DO 01/24/21 19:23 Providers Date of Admission: 01/20/21 Reason For Visit: ACUTE CHOLECYSTITIS Medications at Discharge Home Medications levothyroxine 50 mcg PO DAILY 03/02/17 folic acid 1 mg PO DAILY 05/04/17 metoprolol tartrate 25 mg tablet 25 mg PO BID #180 tab 08/25/17 loperamide 2 mg capsule 2 mg PO Q1-4H PRN 02/26/18 acetaminophen 500 mg capsule 500 mg PO Q6H PRN 03/16/19 lorazepam 0.5 mg tablet 0.5 mg PO Q6H PRN #120 tab 03/16/19 paroxetine HCl 20 mg tablet 20 mg PO DAILY 03/16/19 famotidine 20 mg tablet 20 mg PO DAILY 03/29/19 zolpidem [Ambien CR] 10 mg PO QHS 11/09/19 Refresh Dry Eye Therapy 1 drp EACH EYE BID 01/20/21 hydrocodone-acetaminophen 1 tab PO Q6H PRN 5 Days #20 tab 01/24/21 losartan 50 mg tablet 50 mg PO DAILY #30 tab 01/24/21 ABG / Lab / Microbiology Data Result Diagrams: 01/24/21 06:05 01/24/21 06:05 Discharge Plan Admission Admit Date/Time: 01/20/21 14:14 Primary Reason for Your Visit: Acute Cholecystitis Attending Provider: Timmy Marc Primary Care Provider: Elvia Escalante Consulting Providers: Kamlesh Brown Discharge Orders/Prescriptions Prescriptions: New hydrocodone-acetaminophen 5-325 mg tablet 1 tab PO Q6H PRN (Reason: pain) 5 Days Qty: 20 RF: 0 Continued metoprolol tartrate 25 mg tablet 25 mg PO BID Qty: 180 RF: 3 loperamide [Imodium A-D] 2 mg capsule 2 mg PO Q1-4H PRN (Reason: Diarrhea) RF: 0 famotidine [Pepcid] 20 mg tablet 20 mg PO DAILY RF: 0 paroxetine HCl [Paxil] 20 mg tablet 20 mg PO DAILY RF: 0 lorazepam 0.5 mg tablet 0.5 mg PO Q6H PRN (Reason: Anxiety) Qty: 120 RF: 0 acetaminophen 500 mg capsule 500 mg PO Q6H PRN (Reason: pain) RF: 0 levothyroxine 50 MCG tablet 50 mcg PO DAILY RF: 0 folic acid 1 MG tablet 1 mg PO DAILY RF: 0 zolpidem [Ambien CR] 12.5 MG tablet,ext release multiphase 10 mg PO QHS RF: 0 Refresh Dry Eye Therapy 1 drp EACH EYE BID RF: 0 No Action losartan 50 mg tablet 50 mg PO DAILY Qty: 30 RF: 11 Referrals / Follow Up: Elvia Escalante MD [Primary Care Provider] - Disposition Disposition (needs filled in before D/C Order can be placed): Home Health Service Charges/Coding Addendum Addendum: Patient was seen and examined independently of Kate Chen today, I talked with general surgery about her care and Dr. Brown felt that the patient was stable for discharge and she did not require any antibiotics as an outpatient at this time. On examination she appeared in good health and spirits, she does not appear to be in any distress, patient has blindness. Vital signs as documented. Skin warm and dry and without overt rashes. Neck without JVD, thyroid appears normal, trachea is midline, neck is supple. Lungs clear, normal air movement was noted. Heart exam notable for regular rhythm, normal sounds and absence of murmurs, rubs or gallops. Abdomen unremarkable and without evidence of organomegaly, masses, or abdominal aortic enlargement, bowel sounds are present in all 4 quadrants, no abdominal tenderness was noted. There is a cholecystotomy drainage tube present. Extremities nonedematous, no cyanosis was noted, no clubbing was noted. Neuro: Cranial nerves II through XII are grossly intact, no focal motor deficits were noted, sensation to light touch and pinprick is intact, motor exam 5/5 throughout. Psych: Patient is alert and oriented x3, she does not appear anxious or depressed, she does not appear agitated. I have reviewed Anshul Gustavo's discharge summary including her medical assessment and plan of care and endorse it. Visit Charges Inpatient E&M: 96315 Disch Hosp
--- NOTE | 2021-01-24 12:22 | CASEMGMT ---
Addendum entered by Gretel Gibbons 01/24/21 13:34: PRETTY COOPER back into pt room. Pt states she would like hospice and C. Made aware that she could not have both. Disccused options and provided pt with list of [facility] providers including quality and resource use data and consistent with the patient?s preferred geographic region, medical needs, and insurance network. The patient?s preferred provider is [facility]. She states she has had them in the past. Pt is agreeable to this as well. TC narendra Mg at [facility], referral made. Original Note: PRETTY COOPER in to pt room to confirm dc planning and see if patient is comfortable with choley tube or feels HHC would be beneficial. Pt requests this PRETTY COOPER to come back as she was just medicated. Will follow.
[2021-01-24] MEDS: oxyCODONE 5 MG Tablet PO (14:45)
[2021-01-24 16:28] LABS: pH, Body Fluid 11254 6.9 (Not Estab.)
--- NOTE | 2021-01-25 14:37 | CASEMGMT ---
RN CM Discharge Follow Up Phone Call: MARLENE: 12 Strata: 3 Call Date: 01/25/21 Discharge Date: 01/24/21 Time of Call:1436 Duration:<1 min Admitting Dx:acute choleycysitis RN KENNETH attempted to complete follow up phone call after recent hospitalization. No answer to phone and no answering machine to leave a message.
== END 2021-01-24 15:25 | disposition home health service (06) | DRG 446 ==
LOC: ED 09:03 → MS3 15:20
PROVIDERS: Internal Medicine; Nurse Practitioner Family; Surgery; Admitting Provider Family Medicine; Emergency Provider Emergency Medicine; PCP Internal Medicine; Visit Provider Internal Medicine
DX: K80.00 Calculus of gallbladder with acute cholecystitis without obstruction (principal); E03.9 Hypothyroidism, unspecified; F32.A Depression, unspecified; F41.9 Anxiety disorder, unspecified; I10 Essential (primary) hypertension; E78.5 Hyperlipidemia, unspecified; K21.9 Gastro-esophageal reflux disease without esophagitis; M19.90 Unspecified osteoarthritis, unspecified site; Z79.899 Other long term (current) drug therapy; Z79.890 Hormone replacement therapy; Z90.49 Acquired absence of other specified parts of digestive tract; Z87.19 Personal history of other diseases of the digestive system; Z86.19 Personal history of other infectious and parasitic diseases; Z85.05 Personal history of malignant neoplasm of liver; Z87.11 Personal history of peptic ulcer disease; Z85.048 Personal history of other malignant neoplasm of rectum, rectosigmoid junction, and anus; Z85.038 Personal history of other malignant neoplasm of large intestine
CPT/HCPCS: 36415; 74177; 75989; 76705; 80053; 81001; 83690; 83986; 85025; 85610; 85730; 87070; 87075; 87077; 87186; 87205; 97161; 99251; 99284; J7030; J7040; J7050; Q9967; A4216; G0463; J2405

== ENCOUNTER → 2021-02-05 10:13 | Outpatient (CLI) | payer MEDICARE, OTHER, SELFPAY ==
--- NOTE | 2021-02-05 10:17 | US_ITS ---
STUDY: THYROID ULTRASOUND REASON FOR EXAM: Female, 80 years old. Thyroid nodule TECHNIQUE: Ultrasound evaluation of the thyroid was performed with real-time and static thacker-scale imaging. COMPARISON: None. FINDINGS: RIGHT LOBE: The right lobe of the thyroid gland measures 3.8 cm x 1.8 cm x 2.1 cm. There is a heterogeneous echotexture. There are no demonstrated solid, cystic or complex lesions. LEFT LOBE: The left lobe of the thyroid gland measures 4.5 cm x 1.8 cm x 1.7 cm. There is a heterogeneous echotexture. There is a 7 mm x 6 mm x 6 mm isoechoic/hypoechoic nodule in the lower pole of the left lobe. ISTHMUS: The isthmus measures 6 mm. The regional lymph nodes are normal. US/Thyroid IMPRESSION: Heterogeneous appearance of both lobes of the thyroid. There is a 7 mm x 6 mm x 6 mm hypoechoic/isoechoic nodule in the lower pole of the left lobe. Electronically Signed: Juan Carlos Crump MD at 15:37 EDT , Service support ,
== END ==
PROVIDERS: PCP Internal Medicine; Referring Provider Physician Assistant; Visit Provider Physician Assistant
DX: E07.9 Disorder of thyroid, unspecified (principal)
CPT/HCPCS: 76536

== ENCOUNTER → 2021-02-20 08:00 | Outpatient (REF) | payer MEDICARE, OTHER, SELFPAY | LOC: OLS.HOSPIC 08:00 | PROVIDERS: PCP Internal Medicine; Visit Provider Internal Medicine Cardiovascular Disease | DX: Z03.818 Encounter for observation for suspected exposure to other biological agents ruled out (principal) | CPT/HCPCS: 87635; U0005; U0003 ==